=== PATIENT | female | born 1950 | race Caucasian/White ===

== ENCOUNTER → 2020-02-16 07:26 | Outpatient (CLI) | payer OTHER, SELFPAY ==
--- NOTE | ~2020-02-16 | MR_ITS ---
EXAMINATION: MR cervical spine wo con DATE: 02/16/2020 08:29 INDICATION: Neck pain. TECHNIQUE: Magnetic resonance imaging (MRI) of the cervical spine was performed without intravenous c ontrast. Sequences included sagittal T2-weighted FSE, sagittal STIR FSE, sagittal T1-weighted FSE, ax ial MERGE, and axial T2-weighted FSE. COMPARISON: Cervical spine MRI 02/12/2014 FINDINGS: Bone alignment is normal. Vertebral body heights and intervertebral disc heights are normal . The spinal cord signal intensity is normal. The following disc levels are specifically discussed: C2-C3: The disc does not extend beyond the endplate margin. There is no uncovertebral joint osteoarth ritis. There is mild bilateral facet joint osteoarthritis. There is no neural foraminal stenosis. The re is no central canal stenosis. C3-C4: The disc does not extend beyond the endplate margin. There is no uncovertebral joint osteoarth ritis. There is mild right facet joint osteoarthritis. There is no neural foraminal stenosis. There i s no central canal stenosis. C4-C5: The disc does not extend beyond the endplate margin. There is mild left uncovertebral joint os teoarthritis. There is mild left facet joint osteoarthritis. There is no neural foraminal stenosis. T here is no central canal stenosis. C5-C6: The disc does not extend beyond the endplate margin. There is mild left uncovertebral joint os teoarthritis. There is no facet joint osteoarthritis. There is no neural foraminal stenosis. There is no central canal stenosis. C6-C7: The disc does not extend beyond the endplate margin. There is mild left uncovertebral joint os teoarthritis. There is mild bilateral facet joint osteoarthritis. There is no neural foraminal stenos is. There is no central canal stenosis. C7-T1: The disc does not extend beyond the endplate margin. There is no uncovertebral joint osteoarth ritis. There is mild bilateral facet joint osteoarthritis. There is no neural foraminal stenosis. The re is no central canal stenosis. IMPRESSION: 1. Mild cervical spondylosis, stable from 02/12/2014. Reviewed, dictated and finalized at location A.
== END ==
PROVIDERS: Visit Provider Nurse Practitioner Family
DX: M47.892 Other spondylosis, cervical region (principal)
CPT/HCPCS: 72141

== ENCOUNTER → 2020-04-21 11:13 | Outpatient (CLI) | payer OTHER, SELFPAY ==
--- NOTE | ~2020-04-21 | MM_ITS ---
EXAMINATION: MM screening sal BI w [place] HISTORY: Screening TECHNIQUE: Craniocaudal and mediolateral oblique 3-D tomosynthesis images were obtained and synthetic 2-D images were generated. CAD analysis was submitted and interpreted. COMPARISON: 10/17/2010 BREAST PARENCHYMAL COMPOSITION: There are scattered areas of fibroglandular density. FINDINGS: There is no evidence of suspicious mass, calcification, or architectural distortion to sugg est malignancy in either breast. There has been no suspicious interval change. IMPRESSION: 1. No mammographic evidence of malignancy. 2. Recommend routine screening mammography in one year. BI-RADS Category 1: Negative Reviewed, dictated and finalized at location A.
== END ==
PROVIDERS: PCP Registered Nurse; Visit Provider Registered Nurse
DX: Z12.31 Encounter for screening mammogram for malignant neoplasm of breast (principal)
CPT/HCPCS: 77063; 77067

== ENCOUNTER 2020-12-17 11:21 | Outpatient (CLI) | payer OTHER, SELFPAY ==
--- NOTE | ~2020-12-17 | US_ITS ---
EXAMINATION: US venous doppler [facility] EXAM DATE: 12/17/2020 11:58 INDICATION: Left leg pain and swelling. TECHNIQUE: Multiple grayscale, color flow and Doppler images of the left lower extremity deep venous system were obtained and reviewed. There is no prior study for comparison. FINDINGS: The left common femoral, femoral and profunda veins demonstrate normal color flow, respirat ory variation, augmentation and compressibility. Compressibility, color flow confirmed within the le ft popliteal, posterior tibial, and greater saphenous veins. Peroneal vein not confidently seen. IMPRESSION: 1. No left lower extremity deep venous thrombosis identified. Reviewed, dictated and finalized at location B.
== END 2020-12-17 11:22 | disposition home or self-care (01) ==
PROVIDERS: PCP Registered Nurse; Visit Provider Registered Nurse
DX: M79.605 Pain in left leg (principal); M79.89 Other specified soft tissue disorders
CPT/HCPCS: 93971

== ENCOUNTER → 2021-06-06 11:48 | Outpatient (CLI) | payer OTHER, SELFPAY ==
--- NOTE | ~2021-06-06 | MM_ITS ---
EXAMINATION: MM screening sal BI w [place] HISTORY: Screening mammogram TECHNIQUE: Craniocaudal and mediolateral oblique 3-D tomosynthesis images were obtained and synthetic 2-D images were generated. CAD analysis was submitted and interpreted. COMPARISON: 04/21/2020, 10/17/2010 bilateral digital screening mammogram examinations BREAST PARENCHYMAL COMPOSITION: There are scattered areas of fibroglandular density. FINDINGS: There is no evidence of suspicious mass, calcification, or architectural distortion to sugg est malignancy in either breast. There has been no suspicious interval change. IMPRESSION: 1. No mammographic evidence of malignancy. 2. Recommend routine screening mammography in one year. BI-RADS Category 1: Negative Reviewed, dictated and finalized at location A.
== END ==
PROVIDERS: PCP Registered Nurse; Visit Provider Registered Nurse
DX: Z12.31 Encounter for screening mammogram for malignant neoplasm of breast (principal)
CPT/HCPCS: 77063; 77067

== ENCOUNTER → 2021-10-26 13:27 | Outpatient (CLI) | payer OTHER, SELFPAY ==
--- NOTE | ~2021-10-26 | CT_ITS ---
EXAMINATION: CT lung screening DATE: 10/26/2021 13:57 INDICATION: Personal history of nicotine dependence TECHNIQUE: Computed tomography (CT) of the chest was performed without intravenous contrast. The dose -length product was 61.03 mGy-cm. Automated exposure control and iterative reconstruction technique w ere employed. COMPARISON: No prior studies for comparison. FINDINGS: There is emphysema. No endobronchial lesions. No pneumothorax. There is lingular atelectasi s. There is a borderline size precarinal lymph node measuring 8 mm short axis, likely reactive. Heart size normal. No significant pleural or pericardial effusion. Upper abdomen is unremarkable. There is a healed right lower rib fracture. No acute osseous abnormality. There is a 3-4 mm stellate nodule r ight upper lobe, image 34. There is a 3 mm subsolid nodule right upper lobe, image 38. 2 mm nodule le ft apex, coronal image 53. No pneumothorax. Mild thoracic spondylosis. IMPRESSION: 1. . Lung-RADS category 2: Benign appearance or behavior. Continue annual screening with noncontrast low-dose chest CT in 12 months. Reviewed, dictated and finalized at location B. IMPRESSION: 1. . Lung-RADS category 2: Benign appearance or behavior. Continue annual scree ally with noncontrast low-dose chest CT in 12 months.
== END ==
PROVIDERS: Visit Provider Registered Nurse
DX: Z87.891 Personal history of nicotine dependence (principal)
CPT/HCPCS: 71271

== ENCOUNTER 2021-11-17 14:32 | Outpatient (CLI) | payer OTHER, SELFPAY ==
--- NOTE | 2021-11-17 18:03 | WPDPFTINT ---
PFT Procedure Performed PFT Procedure Performed Spirometry with Pre/Post Bronchodilator Plethysmography (Lung Vol) Diffusing Cap (DLCO) Flow Vol Loop PFT Interpretation This is a pulmonary function test with pre and post-bronchodilator spirometry, plethysmography and diffusing capacity. The test was performed and results interpreted in accordance with the 2019 and 2005 ATS/ERS Task Force guidelines respectively using the Global Lung Function Initiative-2012 reference equations. Patient demonstrated good effort and cooperation. Reproducibility criteria were met. The quality of the pre bronchodilator spirometry maneuver was Grade A and post bronchodilator spirometry maneuver was Grade A. Findings: Spirometry: There is decreased maximal expiratory airflow at all lung volumes with concave expiratory flow tracing. The contour the inspiratory flow tracing is normal. The pre bronchodilator FVC is 2.03 L, 75% predicted. The pre bronchodilator FEV1 is 0.71 L, 34% predicted. The pre bronchodilator FEV1: FVC ratio is 35%. The post bronchodilator FVC is 2.13 L, representing a 5% increase. The post bronchodilator FEV1 is 0.82 L, representing at a 110 mL increase which corresponds to a 16% increase. The post bronchodilator FEV1: FVC ratio is 38%. Plethysmography: The total lung capacity is 5.90 L, 125% predicted. Functional residual capacity is 4.49 L, 168% predicted. The residual volume is 3.63 L, 178% predicted. Diffusion capacity: The diffusing capacity on a adjusted for hemoglobin and carboxyhemoglobin is 8.7, 44% predicted. The diffusing capacity adjusted for alveolar volume is 2.70, 61% predicted. Impression: There is a very severe obstructive abnormality without a significant improvement after inhaling a single dose of albuterol as the absolute increase in FEV1 was less than 200 mL. The increase in residual volume is consistent with air trapping from an obstructive abnormality. Hyperinflation is present is demonstrated by the increase in functional residual capacity and total lung capacity and is consistent with an obstructive abnormality. The diffusing capacity unadjusted for hemoglobin and carboxyhemoglobin is moderately decreased and remains mildly decreased when adjusted for alveolar volume. There are no prior studies for comparison
== END 2021-11-17 14:33 | disposition home or self-care (01) ==
PROVIDERS: PCP Registered Nurse; Visit Provider Registered Nurse
DX: J44.9 Chronic obstructive pulmonary disease, unspecified (principal); J43.9 Emphysema, unspecified; R91.8 Other nonspecific abnormal finding of lung field; R94.2 Abnormal results of pulmonary function studies
CPT/HCPCS: 94060; 94726; 94729

== ENCOUNTER → 2022-01-11 10:30 | Outpatient (CLI) | payer OTHER, SELFPAY ==
--- NOTE | ~2022-01-11 | DEXA_ITS ---
Bone Density Report Name: ELEANOR GARCIA Age: 71 Sex: Female Ethnicity: White Date of : 1950 Indication: osteopenia; height loss; asthma or emphysema; hysterectomy; postmenopausal Referring Provider: Taisha, Ting Study: Bone densitometry was performed. Exam Date: January 11, 2022 Accession number: [id number] Bone Density: Region BMD T-score Z-score Classification AP Spine (L1-L4) 0.995 -0.5 1.6 Normal Femoral Neck (Left) 0.609 -2.2 -0.4 Osteopenia Total Hip (Left) 0.779 -1.3 0.1 Osteopenia Femoral Neck (Right) 0.651 -1.8 0.0 Osteopenia Total Hip (Right) 0.797 -1.2 0.3 Osteopenia Total Hip Mean 0.788 -1.3 0.2 Osteopenia World Health Organization criteria for BMD impression classify patients as: Normal (T-score at or above -1.0), Osteopenia (T-score between -1.0 and -2.5), or Osteoporosis (T-score at or below -2.5). 10-year Fracture Risk(1): Major Osteoporotic Fracture 15% Hip Fracture 3.6% Reported Risk Factors: [place] (), Neck BMD=0.609, BMI=26.4, alcohol use (1) FRAX(R) Version 3.08. Fracture probability calculated for an untreated patient. Fracture probability may be lower if the patient has received treatment. Previous Exams: Region Exam Age BMD T-score BMD Change BMD Change Date g/cm2 vs Baseline vs Previous AP Spine(L1-L4) 01/11/2022 71 0.995 -0.5 0.092* 0.063* 11/06/2017 66 0.931 -1.1 0.029* 0.029* 11/18/2008 57 0.903 -1.3 Total Hip(Left) 01/11/2022 71 0.779 -1.3 0.015 0.025 11/06/2017 66 0.755 -1.5 -0.009 -0.009 11/18/2008 57 0.764 -1.5 Total Hip(Right) 01/11/2022 71 0.797 -1.2 0.013 0.031* 11/06/2017 66 0.766 -1.4 -0.018 -0.018 11/18/2008 57 0.784 -1.3 *Denotes significance at 95% confidence level, LSC for AP Spine = 0.022 g/cm2, LSC for Total Hip = 0.027 g/cm2 Clinical Information Provided by Patient: Has 3 or more alcoholic drinks per day Has used the following medications: Vitamin D Has the following medical conditions: Asthma or Emphysema, Hysterectomy Patient maximum height was 63 Menopause Age: 28 No regular weight bearing exercise Drinks caffeinated beverages Onset of menses at age 14 Number of children 2 Impression: The patient has low bone mass, based on the Left Femoral Neck T-score. The patient has an estimated ten-year risk of hip fracture
== END ==
PROVIDERS: PCP Registered Nurse; Visit Provider Registered Nurse
DX: Z87.891 Personal history of nicotine dependence (principal); M85.852 Other specified disorders of bone density and structure, left thigh; M85.851 Other specified disorders of bone density and structure, right thigh
CPT/HCPCS: 77080

== ENCOUNTER → 2022-08-29 12:26 | Outpatient (CLI) | payer OTHER, SELFPAY ==
--- NOTE | ~2022-08-29 | MM_ITS ---
EXAMINATION: MM screening [facility] BI w [place] HISTORY: Screening mammogram TECHNIQUE: Craniocaudal and mediolateral oblique 3-D tomosynthesis images were obtained and synthetic 2-D images were generated. CAD analysis was submitted and interpreted. COMPARISON: 06/06/2021, 05/21/2020, 10/17/2010 BREAST PARENCHYMAL COMPOSITION: There are scattered areas of fibroglandular density. FINDINGS: No suspicious mass, calcification, or architectural distortion are identified in either jeannie ast to suggest malignancy. There has been no suspicious interval change. IMPRESSION: 1. No mammographic evidence of malignancy. 2. Recommend routine screening mammography in one year. BI-RADS Category 1: Negative Reviewed, dictated and finalized at location A. R ASSISTANT
== END ==
PROVIDERS: PCP Registered Nurse; Visit Provider Registered Nurse
DX: Z12.31 Encounter for screening mammogram for malignant neoplasm of breast (principal)
CPT/HCPCS: 77063; 77067

== ENCOUNTER → 2023-09-07 14:19 | Outpatient (CLI) | payer OTHER, SELFPAY ==
--- NOTE | ~2023-09-07 | CT_ITS ---
EXAMINATION:CT lung screening DATE: 09/07/2023 14:49 INDICATION: Persistent nicotine dependence. Smoker who quit 5 years ago with 50 pack year history. TECHNIQUE: Computed tomography (CT) of the chest was performed without intravenous contrast. Automate d exposure control and iterative reconstruction technique were employed. The dose-length product (DLP ) was 55.85 mGy-cm. COMPARISON: Chest CT 10/26/2021 FINDINGS: There is severe emphysema. There is a stable 5 mm nodule in right upper lobe. There is mild atelectasis bilaterally. There is a 2 mm nodule in left upper lobe. No pleural effusion. The heart s ize is normal. There are coronary artery calcifications. No pericardial effusion. Aortic atherosclero sis is noted. There is moderate thoracic spondylosis. IMPRESSION: 1. Lung-RADS category 2: Benign appearance or behavior. Continue annual screening with noncontrast lo w-dose chest CT in 12 months. Reviewed, dictated and finalized at location E. K MAKER IMPRESSION: 1. Lung-RADS category 2: Benign appearance or behavior. Continue annual screeni ng with noncontrast low-dose chest CT in 12 months.
== END ==
PROVIDERS: PCP Registered Nurse; Visit Provider Registered Nurse
DX: Z12.2 Encounter for screening for malignant neoplasm of respiratory organs (principal); Z87.891 Personal history of nicotine dependence
CPT/HCPCS: 71271

== ENCOUNTER 2023-10-24 12:47 | Outpatient (CLI) | payer OTHER, SELFPAY ==
--- NOTE | ~2023-10-24 | MM_ITS ---
EXAMINATION: MM screening sal BI w [place] HISTORY: Screening mammogram TECHNIQUE: Craniocaudal and mediolateral oblique 3-D tomosynthesis images were obtained and synthetic 2-D images were generated. CAD analysis was submitted and interpreted. COMPARISON: 08/29/2022, 06/06/2021 bilateral screening mammogram examinations BREAST PARENCHYMAL COMPOSITION: There are scattered areas of fibroglandular density. FINDINGS: There is no evidence of suspicious mass, calcification, or architectural distortion to sugg est malignancy in either breast. There has been no suspicious interval change. IMPRESSION: 1. No mammographic evidence of malignancy. 2. Recommend routine screening mammography in one year. BI-RADS Category 1: Negative Reviewed, dictated and finalized at location A.
== END 2023-10-24 12:48 ==
LOC: MICIMG 12:49
PROVIDERS: PCP Registered Nurse; Visit Provider Registered Nurse
DX: Z12.31 Encounter for screening mammogram for malignant neoplasm of breast (principal)
CPT/HCPCS: 77063; 77067

== ENCOUNTER 2023-12-20 11:46 | Outpatient (CLI) | payer OTHER, SELFPAY ==
--- NOTE | ~2023-12-20 | XR_ITS ---
Clinical Indication: Cough PA and lateral views of the chest: Comparison: 08/15/2013 Findings: The lungs are clear, without evidence of focal consolidation or pleural effusion. Cardiome diastinal silhouette is within normal limits. Bones and soft tissues are unremarkable. Impression: Normal chest. Reviewed, dictated and finalized at [facility]. Impression: Normal chest.
[2023-12-20 19:41] LABS: Appearance Urine Clear (Clear); Bilirubin Urine Negative (Negative); Blood Urine Negative (Negative); Color Urine Yellow (Yellow); Glucose Urine UA Negative (Negative); Ketones Urine Negative (Negative); Leukocyte Esterase Ur Negative LEU/UL (Negative); Nitrate Urine Negative (Negative); Protein Urine Negative (Negative); Specific Grav Ur 1.012 (1.001-1.035); Urobilinogen Urine 0.2 mg/dL (<2.0)
[2023-12-20 19:54] LABS: Add Urine Microscopic? NO
[2023-12-20 19:55] LABS: Alanine Aminotransferase 15 U/L (6-35); Albumin Level 4.9 g/dL (3.5-5.1); Alkaline Phosphatase 87 U/L (38-126); Anion Gap 12 mmol/L (4-12); Aspartate Amino Transferase 41 U/L (14-36); Bilirubin,Total 0.8 mg/dL (0.2-1.3); Blood Urea Nitrogen 26 mg/dL (7-17); CRP 0.6 mg/dL (<1.0); Calcium 10.4 mg/dL (8.4-10.2); Carbon Dioxide 21 mmol/L (22-30); Chloride 105 mmol/L (98-107); Cholesterol 238 mg/dL (0-200); Estimated Glomerular Filt Rate 55; Glucose 88 mg/dL (65-110); HDL Direct 94 mg/dL; Magnesium 1.8 mg/dL (1.6-2.3); Potassium 4.1 mmol/L (3.4-5.0); Sodium 138 mmol/L (137-145); Triglycerides 134 mg/dL (<150)
[2023-12-20 20:00] LABS: Hematocrit 45.5 % (37.0-47.0); Hemoglobin 14.7 g/dL (12.0-15.0); Mean Corpuscular HGB Conc 32.3 g/dl (32-36); Mean Corpuscular Hemoglobin 30.9 pg (26-34); Mean Corpuscular Volume 95.6 fl (80-100); Mean Platelet Volume 10.6 fl (7.4-10.4); Platelet Count Result 268 k/mm3 (150-375); Red Blood Count 4.76 M/mm3 (4.2-5.4); Red Cell Distribution Width 14.6 % (11.5-14.5); White Blood Count 8.3 K/mm3 (4.5-10.0)
[2023-12-20 20:04] LABS: LDL Cholesterol Direct 120 mg/dL
[2023-12-20 20:23] LABS: Thyroid Stimulating Hormone 0.999 uIU/mL (0.465-4.680)
== END 2023-12-20 11:47 | disposition home or self-care (01) ==
LOC: ANHBWCIMG 11:47 → ANHBWCLAB 11:51
PROVIDERS: PCP Nurse Practitioner Adult Health; Visit Provider Nurse Practitioner Adult Health
DX: R05.9 Cough, unspecified (principal); M81.0 Age-related osteoporosis without current pathological fracture; M79.10 Myalgia, unspecified site; R35.0 Frequency of micturition; R53.83 Other fatigue; I10 Essential (primary) hypertension
CPT/HCPCS: 36415; 71046; 80053; 80061; 81003; 82306; 82607; 82746; 83735; 84443; 85027; 86140

== ENCOUNTER 2024-05-01 09:46 | Outpatient (CLI) | payer OTHER, SELFPAY ==
--- NOTE | ~2024-05-01 | XR_ITS ---
EXAMINATION: XR abdomen/kub 1V DATE: 05/01/2024 09:55 INDICATION: Other fecal abnormalities. TECHNIQUE: A supine view of the abdomen was obtained. COMPARISON: None. FINDINGS: There are no dilated loops of bowel. There is a small volume of stool in the colon. IMPRESSION: 1. Normal bowel gas pattern. Reviewed, dictated and finalized at location A.
== END 2024-05-01 09:47 | disposition home or self-care (01) ==
LOC: ANHBWCIMG 09:47
PROVIDERS: PCP Nurse Practitioner Adult Health; Visit Provider Nurse Practitioner Adult Health
DX: R19.5 Other fecal abnormalities (principal)
CPT/HCPCS: 74018

== ENCOUNTER 2024-05-27 11:09 | Outpatient (CLI) | payer OTHER, SELFPAY ==
--- NOTE | ~2024-05-27 | CT_ITS ---
Non-contrast CT scan of the Abdomen and Pelvis Clinical indication: Other abnormalities Technique: 2.5 mm axial scans were obtained through the abdomen and pelvis without intravenous or or al contrast. Dose reduction technique was used on this scan by utilizing automated exposure control a nd iterative reconstruction technique. The dose-length product (DLP) was 305.62 mGy-cm. Findings: Images through the lung bases reveal no abnormalities. Left kidney unremarkable. Right kidney is severely, markedly atrophic. The liver, spleen, pancreas, gallbladder, and adrenals appear normal. There are extensive atheroscler otic calcifications of the aorta and iliac vessels. . There is no evidence of bowel obstruction. Possible mild diffuse large bowel wall thickening. Images through the pelvis were performed. There is no evidence of ascites or lymphadenopathy. Urinary bladder unremarkable. Status post hysterectomy. No pelvic mass. Impression: Suspected mild diffuse large bowel wall thickening. Correlate for mild infectious/inflammatory coliti s. Markedly atrophic right kidney. Reviewed, dictated and finalized at [facility]. Impression: Suspected mild diffuse large bowel wall thickening. Correlate for mild infectio us/inflammatory colitis. Markedly atrophic right kidney.
== END 2024-05-27 11:10 | disposition home or self-care (01) ==
LOC: MICIMG 11:10
PROVIDERS: PCP Nurse Practitioner Adult Health; Visit Provider Nurse Practitioner Adult Health
DX: R19.5 Other fecal abnormalities (principal); R10.9 Unspecified abdominal pain
CPT/HCPCS: 74176

== ENCOUNTER 2024-06-26 01:21 | Day surgery (SDC) | payer OTHER, SELFPAY ==
[2024-06-16 17:20] VITALS: BMI 23.8
[2024-06-26 11:02] VITALS: BP 145/66; PULSE 95; RESP 16; TEMP 36.1; O2SAT 99; BMI 23.6
[2024-06-26] MEDS: LACTATED RINGERS 1,000 ML 150 ML IV CONT (11:14)
--- NOTE | 2024-06-26 11:20 | P.PNAN_ITS ---
Anes - Initial Pre Proc Eval Procedure: Operation Date: 06/26/24 12:30 Proposed Procedures p Colonoscopy - Scott Arita MD Date/Time: 06/26/24 11:20 Surgeon: Scott Arita MD Pre Op Diagnosis: fecal abnormalities Patient Data Age: 73 Gender: F Height: 1.57 m Weight: 58.6 kg Last Vital Signs Temp 36.1 C L 06/26/24 11:02 Pulse 95 06/26/24 11:02 Resp 16 06/26/24 11:02 BP 145/66 H 06/26/24 11:02 Pulse Ox 99 06/26/24 11:02 O2 Del Method Room Air 06/26/24 11:02 Allergies Allergy/AdvReac Type Severity Reaction Status Date / Time amlodipine Allergy Unknown Swelling Verified 06/26/24 11:00 denosumab [From Prolia] Allergy Unknown Unknown Verified 06/26/24 11:00 fluticasone furoate Allergy Unknown Unknown Verified 06/26/24 11:00 [From Trelegy Ellipta] nitrofurantoin Allergy Unknown Unknown Verified 06/26/24 11:00 umeclidinium Allergy Unknown Unknown Verified 06/26/24 11:00 [From Trelegy Ellipta] vilanterol Allergy Unknown Unknown Verified 06/26/24 11:00 [From Trelegy Ellipta] NITROFURANTOIN MACROCRYSTAL Allergy Unknown Unknown Uncoded 06/26/24 11:00 Home Medications Medication Instructions Recorded Confirmed Type albuterol sulfate 2.5 mg/3 mL 2.5 mg (3 mL) inhalation Q4-6H PRN 12/20/23 06/26/24 Rx (0.083 %) solution for nebulization bronchospasm #90 mL albuterol sulfate 90 mcg/actuation 2 puff inhalation Q4H PRN 12/20/23 06/26/24 History aerosol inhaler (Ventolin HFA) shortness of breath or wheezing triamterene 37.5 1 tablet PO QAM 12/20/23 06/26/24 History mg-hydrochlorothiazide 25 mg tablet losartan 50 mg tablet 50 mg PO DAILY #90 tabs 01/17/24 06/26/24 Rx fluticasone 500 mcg-salmeterol 50 1 inh inhalation Q12H #60 ea 03/26/24 06/26/24 Rx mcg/dose blistr powdr for inhalation (Roroxheron Inhub) Patient hx anesthesia problems: none Family hx anesthesia problems: none Results Review: All pre-operative results and documents have been reviewed as part of the pre- operative evaluation. FORMERLY [facility], 1928–1983 Past Medical History Medical History Arthritis Asthma COPD (chronic obstructive pulmonary disease) Family History Family History Father Cancer Aneurysm Mother Cancer Sibling Cancer Aneurysm Social History Social History Smoking packs per day: 0.75 Smoking cigarettes per day: 15.0 Years smoked: 47 Smoking pack-years: 35.25 Smoking status: Former smoker Tobacco type: cigarettes Smoking end date: 12/11/17 Alcohol intake: current Drinks per week: 5 Alcohol use details: Rum or wine Substance use type: does not use Do You Feel Safe in your Home?: Yes Lack of Transportation: No Lack of Food: Never True Current Housing: I Have Housing Concerned About Future Housing: No Difficulty Paying Gas/Electric Bills: No Difficulty Paying for Meds: No Currently Unemployed: No Education: High School Diploma/GED Living arrangements: with family Gender identity (if verbalized by the patient): Female Spiritual care concerns: No Agree to blood products: Yes Anes - Eval Final PreProcedure Day of Procedure 06/26/24 11:20 Heart: regular rate and rhythm Airway: Mallampati scale class II Neurological: alert and oriented Last oral intake: >/= 8 hours ASA classification: III Emergent: no Anesthetic plan: proceed Anesthesia type and monitoring: general GIVS and standard monitoring Results Review: All pre-operative results and documents have been reviewed as part of the pre- operative evaluation. Informed Consent: The patient's anesthetic plan and its attendant risks and benefits were discussed with the patient/family/POA. Questions were solicited and answers provided to the satisfaction of the patient/family/POA.
--- NOTE | 2024-06-26 11:43 | PM.HPGS ---
History of Present Illness History of Present Illness Consent: Risks, benefits, and alternatives have been discussed and questions answered. Patient agrees to proceed with procedure. Chief complaint: fecal abnormalities Narrative: Radha Linares is a 73 year old female with change of bowel habits, last colonoscopy 10 years ago Review of Systems Review of Systems: All systems reviewed & are unremarkable except as noted in HPI and below PMFSH Past Medical History Medical History Arthritis Asthma COPD (chronic obstructive pulmonary disease) Family History Family History Father Cancer Aneurysm Mother Cancer Sibling Cancer Aneurysm Social History Social History Smoking packs per day: 0.75 Smoking cigarettes per day: 15.0 Years smoked: 47 Smoking pack-years: 35.25 Smoking status: Former smoker Tobacco type: cigarettes Smoking end date: 12/11/17 Alcohol intake: current Drinks per week: 5 Alcohol use details: Rum or wine Substance use type: does not use Do You Feel Safe in your Home?: Yes Lack of Transportation: No Lack of Food: Never True Current Housing: I Have Housing Concerned About Future Housing: No Difficulty Paying Gas/Electric Bills: No Difficulty Paying for Meds: No Currently Unemployed: No Education: High School Diploma/GED Living arrangements: with family Gender identity (if verbalized by the patient): Female Spiritual care concerns: No Agree to blood products: Yes Meds Home Medications and Allergies Home Medications Medication Instructions Recorded Confirmed Type albuterol sulfate 2.5 mg/3 mL 2.5 mg (3 mL) inhalation Q4-6H PRN 12/20/23 06/26/24 Rx (0.083 %) solution for nebulization bronchospasm #90 mL albuterol sulfate 90 mcg/actuation 2 puff inhalation Q4H PRN 12/20/23 06/26/24 History aerosol inhaler (Ventolin HFA) shortness of breath or wheezing triamterene 37.5 1 tablet PO QAM 12/20/23 06/26/24 History mg-hydrochlorothiazide 25 mg tablet losartan 50 mg tablet 50 mg PO DAILY #90 tabs 01/17/24 06/26/24 Rx fluticasone 500 mcg-salmeterol 50 1 inh inhalation Q12H #60 ea 03/26/24 06/26/24 Rx mcg/dose blistr powdr for inhalation (Wixela Inhub) Allergies Allergy/AdvReac Type Severity Reaction Status Date / Time amlodipine Allergy Unknown Swelling Verified 06/26/24 11:00 denosumab [From Prolia] Allergy Unknown Unknown Verified 06/26/24 11:00 fluticasone furoate Allergy Unknown Unknown Verified 06/26/24 11:00 [From Trelegy Ellipta] nitrofurantoin Allergy Unknown Unknown Verified 06/26/24 11:00 umeclidinium Allergy Unknown Unknown Verified 06/26/24 11:00 [From Trelegy Ellipta] vilanterol Allergy Unknown Unknown Verified 06/26/24 11:00 [From Trelegy Ellipta] NITROFURANTOIN MACROCRYSTAL Allergy Unknown Unknown Uncoded 06/26/24 11:00 Vital Signs Vital Signs - 24 hr 06/26/24 11:02 Temperature 97 F L Pulse Rate 95 Respiratory Rate 16 Blood Pressure 145/66 H Pulse Oximetry 99 Oxygen Delivery Room Air Exam Const: General: comfortable and no acute distress HENMT: Face/Nose/Sinus: Normal nares present Eyes: General: appearance normal, both eyes and all related structures Neck: Neck: no JVD Resp: Auscultation: clear to auscultation bilaterally Cardio: Rate: regular rate Rhythm: regular rhythm GI: Inspection: non-distended GI Palp: Yes Soft to palpation Skin: General skin exam: normal color Neuro: General: gait normal Speech: normal speech Extrem: General: normal to inspection Psych: Mental Status: mental status grossly normal Assessment and Plan Assessment and plan (1) Change in stool caliber: Code(s): R19.5 - Other fecal abnormalities Status: Acute Assessment and Plan: colonoscopy
[2024-06-26 12:00] VITALS: BP 109/44; PULSE 83; RESP 18; O2SAT 99
[2024-06-26 12:10] VITALS: BP 113/54; PULSE 86; RESP 18; O2SAT 100
[2024-06-26 12:30] VITALS: BP 112/68; PULSE 81; RESP 17; O2SAT 100
== END 2024-06-26 12:32 | disposition home or self-care (01) ==
PROVIDERS: PCP Nurse Practitioner Adult Health; Visit Provider Internal Medicine Gastroenterology
PROC: 0DJD8ZZ Inspection of Lower Intestinal Tract, Via Natural or Artificial Opening Endoscopic (ICD-10-PCS; CPT 45378; principal; 2024-06-26 12:30)
DX: D12.0 Benign neoplasm of cecum (principal); D12.3 Benign neoplasm of transverse colon; K64.8 Other hemorrhoids; J44.9 Chronic obstructive pulmonary disease, unspecified; Z79.51 Long term (current) use of inhaled steroids; Z87.891 Personal history of nicotine dependence; Z80.9 Family history of malignant neoplasm, unspecified
CPT/HCPCS: 45385; 88305; J2003; J2704; J7120

== ENCOUNTER 2024-09-08 10:00 | Outpatient (CLI) | payer OTHER, SELFPAY ==
--- NOTE | ~2024-09-08 | CT_ITS ---
CT Scan of the Chest without Contrast: Clinical Indication: Lung cancer screening, nicotine dependence Technique: Contiguous sections were acquired throughout the chest without intravenous contrast. Dose reduction technique was used on this scan by utilizing automated exposure control and iterative recon struction technique. The dose-length product (DLP) was 48.54 mGy-cm. COMPARISON: 09/07/2023 Findings: There is no evidence of any significant mediastinal, hilar or axillary lymphadenopathy. The mediastin al soft tissues appear unremarkable. There is no evidence of pleural or pericardial effusion. There is moderate to advanced emphysema. There is linear scarring or atelectasis at the lingula. No d iscrete pulmonary nodule evident. Images through the upper abdomen reveal no abnormalities. Impression: Lung RADS 1: Negative. 12 month follow-up screening CT advised. Moderate to advanced emphysema. Reviewed, dictated and finalized at [facility]. [facility] RE[facility]ATION THERAP[facility] Impression: Lung RADS 1: Negative. 12 month follow-up screening CT advised. Moderate to advanced emphysema.
== END 2024-09-08 10:01 | disposition home or self-care (01) ==
LOC: MICIMG 10:00
PROVIDERS: PCP Nurse Practitioner Adult Health; Visit Provider Nurse Practitioner Family
DX: Z12.2 Encounter for screening for malignant neoplasm of respiratory organs (principal); J43.9 Emphysema, unspecified; Z87.891 Personal history of nicotine dependence
CPT/HCPCS: 71271

== ENCOUNTER 2024-11-04 09:40 | Outpatient (CLI) | payer OTHER, SELFPAY ==
--- OUTSIDE RECORDS SUMMARY | 2024-11-04 10:57 | XMS_ITS | CONTINUITY OF CARE DOCUMENT ---
Author Name zaria, zaria Address Unknown Organization [facility] Address [address] [place] [address] Phone [phone] Care Team Providers Care Negative Stripper Name Role Phone Nicko DODGE, Chito Unavailable [phone] TIMUR BANDA Unavailable TIMUR BANDA Unavailable PROBLEMS Condition Status Date Provider Notes Abnormal electrocardiogram active Olga cohen Cardiology examination completed 7 - Chito Maharaj MD COPD active Chito Maharaj MD Claudication active Chito Maharaj MD Essential Hypertension-nml s tress nuc and echo active Chito Maharaj MD Hyperlipidemia active Chito Maharaj MD TOBACCO ABUSE QUIT active Chito Maharaj MD ENCOUNTERS Date Type Provider Location Encounter Diag nosis - In-person encounter Office Visit Chito Maharaj MD [facility] Cardiology examinationEssential Hypertension-nml stress nuc and echo - In-person encounter Office Visit Chito Maharaj MD [facility] COPDClaudicationEssential Hypertension-nml stress nuc and echoHyperlipidemiaTOBACCO ABUSE QUIT VITAL SIGNS Date Observation Value Provider Body Mass Index (Ratio) 24.87 kg/m2 Tenzin Maharaj MD blood pressure, diastolic 80 mm[Hg] Jonas Paris blood pressure, systolic 138 mm[Hg] Sweta Paris oxygen saturation, oximetry 97 % Jaylin Streeter respiratory rate E&M 16 /min Jaylin Paris pulse rate 68 /min Holabird Paris weight E&M 136 [lb_av] Jaylin Paris blood pressure, resting Yes Kaylah painter Streeter height E&M 62 [in_i] Jaylin Streeter Body Mass Index (Ratio) 23.96 kg/m2 Tenzin Maharaj MD blood pressure, cuff size regular Cy rosita Larsen blood pressure, diastolic 80 mm[Hg] Amilcar Larsen blood pressure, systolic 128 mm[Hg] Beth Larsen oxygen saturation, oximetry 98 % Julita Larsen respiratory rate E&M 16 /min Julita Larsen pulse rate 83 /min Julitafrances Gutiérrezbetzaida maria height E&M 62 [in_i] Julitafrances Gutiérrezbetzaida l weight E&M 131 [lb_av] Julita Cortes l ALLERGIES Allergy Name Onset Date Reaction Criticality Status MACROBID Low Criticality active HISTORY OF MEDICATION USE Medication Status Instructions Dates Provider Indications Com ments PROAIR HFA 108 (90 BASE) MCG/ACT INHALATION AEROSOL SOLUTION active TAke 2 puffs as needed Julita Larsen TRELEGY ELLIPTA 100-62.5-25 MCG/INH INHALATION AEROSOL POWDER BREATH ACTIVATED active TAke 1 puff as needed Julita Larsen SIMVASTATIN 20 MG ORAL TABLET active TAke 1 tab daily Julita Larsen TRIAMTERENE-HCTZ 37.5-25 MG ORAL CAPSULE active TAke 1 tab daily Julita Larsen SOCIAL HISTORY Date Observation Value Provider social history reviewed E&M revi ewed - no changes required Chito Maharaj MD number of grandchildren Chito Maharaj MD K yimi Streeter smoking, year quit 2018 Jaylin Hannah ngregina smoking history, total pack/day 1/2 PPD [facility] cigarette use yes Jaylin Paris smoking status Former smoker Jaylin Zapata am social history reviewed E&M revi ewed - no changes required Chito Maharaj MD social history E&M S moking History: Dunia yoder is a former smoker. Chito Maharaj MD smoking history, total pack/day 1/2 PPD Julita Chava smoking, year quit 2018 Julita garcia cigarette use yes Julita Wilson smoking status Former smoker Julita aparicio FAMILY HISTORY Family Member Condition Full Sister Family History of Di abetes: Full Sister Family History of Co ronary Artery Disease: Full Sister Family History of Di abetes: INSURANCE PROVIDERS Payer name Policy type / Coverage type [place] red republican ID [employer] [facility] Other [id number] ADVANCE DIRECTIVES Name Date DISCUSSED - NO DECISION MADE TREATMENT PLAN Date Name Performer Cardiology Chito Maharaj MD Cardiology Chito Maharaj MD Cardiology Chito Maharaj MD Cardiology Chito Maharaj MD Cardiology New Patient Chito roman MD Cardiology New Patient Chito roman MD Cardiology New Patient Chito roman MD Cardiology New Patient Chito roman MD Date Name Arterial Duplex Bi-L ower EX Stress Regadenoson Complete Echo HISTORY OF PROCEDURES Procedure Date Procedure Name Provider Procedure Notes S tatus Regadenoson, 4 units Chito Maharaj MD completed Cardiolite, 2 units Chito Maharaj MD completed SPECT Images Chito Maharaj MD complet ed Stress EKG Chito Maharaj MD completed EKG Chito Maharaj MD completed
[2024-11-04 19:45] LABS: Anion Gap 10 mmol/L (4-12); Blood Urea Nitrogen 17 mg/dL (7-17); Carbon Dioxide 27 mmol/L (22-30); Chloride 103 mmol/L (98-107); Estimated Glomerular Filt Rate 51; Glucose 91 mg/dL (65-110); Potassium 5.5 mmol/L (3.4-5.0); Sodium 140 mmol/L (137-145)
== END 2024-11-04 09:41 | disposition home or self-care (01) ==
PROVIDERS: PCP Nurse Practitioner Adult Health; Visit Provider Nurse Practitioner Adult Health
DX: E87.6 Hypokalemia (principal)
CPT/HCPCS: 36415; 80048

== ENCOUNTER 2024-11-07 11:04 | Inpatient (IN) | payer OTHER, SELFPAY ==
--- NOTE | ~2024-11-07 | CT_ITS ---
EXAMINATION: CTA abdomen pelvis DATE: 11/07/2024 13:44 INDICATION: Colitis. TECHNIQUE: Computed tomographic angiography (CTA) of the abdomen and pelvis was performed with 100 mL Omnipaque-350 intravenous contrast. Automated exposure control and iterative reconstruction techniqu e were employed. The dose-length product was 239.07 mGy-cm. Maximum intensity projection 3D-reconstru ctions of the aorta and other arteries were constructed by the technologist on a separate workstation . COMPARISON: CT abdomen and pelvis 05/27/2024 FINDINGS: The visualized portions of lung bases demonstrate emphysema and mild left-sided atelectasis . No pleural effusion. The heart size is normal. No pericardial effusion. There is a small sliding hi atal hernia. The liver, gallbladder, spleen, pancreas, adrenal glands, and left kidney are normal. Th ere is severe atrophy of right kidney. There is wall thickening throughout the colon, consistent with colitis. The appendix is not visualized. There are no pathologically enlarged lymph nodes. There is no free intraperitoneal fluid. There is mild stenosis of celiac axis and moderate stenosis of superio r mesenteric artery and left renal artery. There is mild stenosis of origin of inferior mesenteric ar solis. There is mild lumbar spondylosis. IMPRESSION: 1. Pancolitis. 2. Moderate stenosis of superior mesenteric artery. Reviewed, dictated and finalized at location A.
[2024-11-07 11:16] VITALS: BP 125/62; PULSE 110; RESP 20; TEMP 36.8; O2SAT 95
--- NOTE | 2024-11-07 11:19 | ECG_ITS ---
Test Date: 2024-11-07 11:23:43 Measurements Intervals [place] Rate: 110 P: 85 [place]: 131 QRS: 84 QRSD: 74 T: 90 QT: 291 QTc: 395 Interpretive Statements SINUS TACHYCARDIA MODERATE ST AND T-WAVE ABNORMALITY, CONSIDER INFEROLATERAL ISCHEMIA No previous ECG available for comparison Electronically Signed On 11-07-2024 13:17:27 CDT by Tessa Ochoa M.D.
--- OUTSIDE RECORDS SUMMARY | 2024-11-07 12:07 | XMS_ITS | Encounter Summary ---
Author Organization [facility] Address [facility] [facility] [place] [address] Care Team Providers Care Vegetable Buncher Name Role Phone Unavailable Primary Care Provider Unavailabl e Encounter Details Date Type Department Care Team (Late st Contact Info) Description 10/10/2024 Lab Requisition [facility] - DermPath Lab [address] [place] [id number] Fredy Rhodes MD [facility] DERMATOLOG[facility] [address] [place] [phone] Neoplasm of uncertain behavior of skin Social History Tobacco Use Types Packs/Day Years Used Date Smoking Tobacco: Every Day Cigarettes Smokeless Tobacco: Never Alcohol Use Standard Drinks/Week Comments Not Asked 0 (1 standard drink = 0.6 oz pur e alcohol) Sex and Gender Information Value Date Recorded Sex Assigned at Not on file Gender Identity Not on file Sexual Orientation Not on file documented as of this encounter Plan of Treatment Not on file documented as of this encounter Procedures Procedure Name Priority Date/Time Associated Diagnosis Comments DERMATOPATHOLOGY Routine 10/10/2024 12:0 0 AM PERFORMANCE IMPROVEMENT COORDINATOR Neoplasm of uncertain behavior of skin documented in this encounter Results * DERMATOPATHOLOGY (10/10/2024 12:00 AM PERFORMANCE IMPROVEMENT COORDINATOR) Case Report Dermatopathology Report Case: [id number] Authorizing Provider: Fredy Rhodes MD Collected: 10/10/2024 12:00 AM Ordering Location: [facility] - Received: 10/13/2024 04:17 PM DermPath Lab Pathologist: Antonella Ag MD Specimens: A) - Skin, right chin B) - Skin, left upper arm 5:11 PM [facility] DERMATOPATHOLOGY LABORATORY Final Diagnosis Specimen A. SKIN, right chin: BASAL CELL CARCINOMA, NODULAR TYPE (C44.319) Specimen B. 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 The specimen consists of a shave biopsy measuring 8x6x1 mm. Jar 0. Specimen B: Received is one formalin filled container labeled with the patient's name and designated left upper arm. The specimen consists of a shave biopsy measuring 6x4x2 mm. Jar 0. 5:11 PM [facility] DERMATOPATHOLOGY [facility]ORATORY Microscopic Description Specimen A. SKIN, right chin: Within the dermis there are aggregates of basaloid cells with a high nuclear to cytoplasmic ratio and peripheral palisading. Specimen B. SKIN, left upper arm: The epidermis shows parakeratosis, full thickness disorderly maturation of keratinocytes, mitoses at different levels, and dyskeratotic cells. There is a column of marked compact hyperkeratosis. 5:11 PM [facility] DERMATOPATHOLOGY LABORATORY Disclaimer An external and internal positive and negative controls are appropriate for the histochemical, immunohistochemical and immunofluorescence stain(s) in this case (if any), except where stated explicitly. The performance characteristics of the stain(s) cited in this report were developed and its performance characteristic determined by the Dermatopathology Laboratory at [facility], directed by Dr. Silvana Kramer. These tests need not be, and therefore are not, approved by the [place] Food and Drug Administration. The tests are used for clinical purposes. Billing Codes Specimen Charges Stain Charges 89431 95910 1 1 5:11 PM [facility] DERMATOPATHOLOGY LABORATORY Embedded Images 5:11 PM PERFORMANCE IMPROVEMENT COORDINATOR DERMATOPATHOLOGY LABORATORY Pathology/Cytology TISSUE SPECIMEN FROM SKIN / Unknown 10/10/2024 10/13/2024 4:17 PM PERFORMANCE IMPROVEMENT COORDINATOR Miscellaneous samples (specimen) TISSUE SPECIMEN FROM SKIN / Unknown 10/10/2024 10/13/2024 4:17 PM PERFORMANCE IMPROVEMENT COORDINATOR Fredy Rhodes MD LAB - PATHOLOGY/CYTO LOGY ORDERABLES DERMATOPATHOLOGY LABORATORY [facility] - Department of Dermatology [facility] [address] [place] [address], [address] [phone] documented in this encounter Visit Diagnoses Diagnosis Neoplasm of uncertain behavior of skin documented in this encounter
--- OUTSIDE RECORDS SUMMARY | 2024-11-07 12:07 | XMS_ITS | Encounter Summary ---
Author Organization [facility] Address [address] [place] [id number] Care Team Providers Care Purchasing Officer Name Role Phone Ting SumnerNP Primary Care Provider [phone] Daphne Ruiz RN Unavailable Molly Poe NP Primary Care Provider [phone] Encounter Details Date Type Department Care Team (Late st Contact Info) Description 02/07/2023 MyChart Message Enc [facility] - [facility] [address] [place], [place] [id number] [facility], [facility] Provider Air Quality Message Social History Tobacco Use Types Packs/Day Years Used Date Smoking Tobacco: Former Cigarettes 0.5 45 1 10/03/1972 - 08/02/2018 Passive Smoke Exposure: Past Smokeless Tobacco: Never Alcohol Use Standard Drinks/Week Comments Yes 0 (1 standard drink = 0.6 oz pur e alcohol) 4-5 per day PHQ-2 Answer Date Recorded PHQ-2 Score - If the patient scores above 3, please move on to questions 3-9 0 10/18/2021 Comments No Sex and Gender Information Value Date Recorded Sex Assigned at Not on file Legal Sex Female 9:01 AM CDT Gender Identity Female 10/06/2021 5:18 AM REPAIR SERVICE DISPATCHER Sexual Orientation Not on file COVID-19 Exposure Response Date Recorded In the last 10 days, have yo u been in contact with someone who was confirmed or suspected to have Coronavirus/COVID-19? No / Unsure 01/23/2023 3:14 PM CDT documented as of this encounter Plan of Treatment Upcoming Encounters Date Type Department Care Team (Late st Contact Info) Description 11/26/2024 11:30 AM CDT Office Visit [facility] [address] [place] [address] Danish Guzman MD [facility] [address] [place] [address] documented as of this encounter Visit Diagnoses Not on filedocumented in this encounter Additional Health Concerns Assessment Noted Time PHQ-9 Depression Total Score: 0 10/19/19 22 9:18 AM REPAIR SERVICE DISPATCHER documented as of this encounter Care Teams Purchasing Officer Relationship Specialty Start Date End Date Ting Sumner APNP [address] [place] [address] PCP - General NURSE PRACTITIONER 02/26/20 10/28/24 Molly Poe NP [address] [place] [address] PCP - General NURSE PRACTITIONER 10/29/24 Daphne Ruiz, RN [address] [place] [address] Song Plugger (Ambulatory) REGISTERED NURSE 10/28/24 10/28/24 documented as of this encounter
--- OUTSIDE RECORDS SUMMARY | 2024-11-07 12:07 | XMS_ITS | Clinical Summary ---
Author Organization [facility] Address [address] [facility] [place] [address] Care Team Providers Care Security Support Analyst Name Role Phone Unavailable Primary Care Provider Unavailabl e Source Comments [facility],non-owned Affiliates and Associated Physician Practices is amultiple site organization consisting of ambulatory clinics and hospital sitesin [place], [place], [place] and [place]. This disclosure is being madepursuant to the Care Everywhere program and may not contain all information available regarding this patient. Last updated 18.[facility] [employer] Allergies Active Allergy Reactions Criticality Noted Date Comments Tramadol 11/11/2012 Medications * Be aware that medications may not be up to date on this document. Alwaysverify current medications with the patient. Medication Sig Dispensed Refills Start Date End Date Status fluticasone-salmeterol (ADVAIR DISKUS) 250-50 MCG/DOSE inhaler Active DICLOFENAC SODIUM OP 2 times daily. Active triamterene-hydrochloroth iazide (MAXZIDE-25) 37.5-25 MG tablet Active simvastatin (ZOCOR) 20 MG tablet Active Active Problems Problem Noted Date Diagnosed Date Degeneration of cervical intervertebral disc 12/2012 HTN (hypertension) 11/11/2012 Hyperlipidemia 11/11/2012 Neck pain 11/11/2012 Encounters Date Type Department Care Team Description 10/10/2024 Lab Requisition [facility] - DermPath Lab [address] [facility] [place] [address] Fredy Rhodes MD Neoplasm of uncertain behavior of skin from Last 3 Months Social History Tobacco Use Types Packs/Day Years Used Date Smoking Tobacco: Every Day Cigarettes Smokeless Tobacco: Never Alcohol Use Standard Drinks/Week Comments Not Asked 0 (1 standard drink = 0.6 oz pur e alcohol) Sex and Gender Information Value Date Recorded Sex Assigned at Not on file Gender Identity Not on file Sexual Orientation Not on file Last Filed Vital Signs Vital Sign Reading Time Taken Comments Blood Pressure 125/78 11/11/2012 2:16 PM CDT Pulse 91 11/11/2012 2:16 PM CDT Temperature - - Respiratory Rate 18 11/11/2012 2:16 PM CDT Oxygen Saturation - - Inhaled Oxygen Concentration - - Weight 55.8 kg (123 lb) 11/11/2012 2:16 PM CDT Height 157.5 cm (5' 2 ) 11/11/2012 2:16 PM CDT Body Mass Index 22.5 11/11/2012 2:16 PM CDT Plan of Treatment Health Maintenance Due Date Last Done Comments BONE DENSITY TESTING 1950 COLOGUARD (AGES 45-75) - COL ON CA SCREENING 1952 COLON MONITORING 1952 COLONOSCOPY - COLON CA SCREENING 1952 CT COLONOGRAPHY - COLON CA SCREENING 1950 Colorectal Cancer Screening 1950 FIT - COLON CA SCREENING 1952 FLEX SIG - COLON CA SCREENING 1950 MAMMOGRAM 1950 MEDICARE AWV 12 MONTHS 1952 HEPATITIS C SCREENING 12/22/1970 DTAP/TDAP/TD VACCINES (1 - Tdap) 12/27/1971 PNEUMOCOCCAL VACCINE 50+ (1 of 2 - PCV) 12/27/1971 ZOSTER VACCINE (1 of 2) 2002 COVID-19 VACCINE ( - 2023-2 5 season) 2024 INFLUENZA VACCINE (#1) 2024 DEPRESSION SCREENING 08/13/2024 Respiratory Syncytial Virus (RSV) Vaccine Pt: or over 60 yrs (1 - 1-dose 75+ series) 12/27/2027 HEPATITIS B VACCINE Aged Out No longe r eligible based on patient's age to complete this topic HIB VACCINE Aged Out No longer eligi ble based on patient's age to complete this topic HPV VACCINE Aged Out No longer eligi ble based on patient's age to complete this topic MENINGOCOCCAL (Group B) VACC INE SHARED DECISION-MAKING Aged Out No longer eligibl e based on patient's age to complete this topic MENINGOCOCCAL GROUPS A/C/Y/W VACCINE Aged Out No longer eligible b ased on patient's age to complete this topic Procedures Procedure Name Priority Date/Time Associated Diagnosis Comments DERMATOPATHOLOGY Routine 10/10/2024 12:0 0 AM CEMENTING BULK MATERIAL OPERATOR Neoplasm of uncertain behavior of skin from Last 3 Months Results * DERMATOPATHOLOGY (10/10/2024 12:00 AM CEMENTING BULK MATERIAL OPERATOR) Case Report Dermatopathology Report Case: [id number] Authorizing Provider: Fredy Rhodes MD Collected: 10/10/2024 12:00 AM Ordering Location: [facility] - Received: 10/13/2024 04:17 PM DermPath Lab Pathologist: Antonella Ag MD Specimens: A) - Skin, right chin B) - Skin, left upper arm 5:11 PM [facility] DERMATOPATHOLOGY LABORATORY Final Diagnosis Specimen A. SKIN, right chin: BASAL CELL CARCINOMA, NODULAR TYPE (C44.319) Specimen B. 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 Jar 0. 5:11 PM [facility] DERMATOPATHOLOGY LABORATORY Microscopic Description Specimen A. SKIN, right chin: Within the dermis there are aggregates of basaloid cells with a high nuclear to cytoplasmic ratio and peripheral palisading. Specimen B. SKIN, left upper arm: The epidermis shows parakeratosis, full thickness disorderly maturation of keratinocytes, mitoses at different levels, and dyskeratotic cells. There is a column of marked compact hyperkeratosis. 5:11 PM CEMENTING BULK MATERIAL OPERATOR DERMATOPATHOLOGY LABORATORY Disclaimer An external and internal positive and negative controls are appropriate for the histochemical, immunohistochemical and immunofluorescence stain(s) in this case (if any), except where stated explicitly. The performance characteristics of the stain(s) cited in this report were developed and its performance characteristic determined by the Dermatopathology Laboratory at [facility], directed by Dr. Silvana Kramer. These tests need not be, and therefore are not, approved by the [place] Food and Drug Administration. The tests are used for clinical purposes. Billing Codes Specimen Charges Stain Charges 88382 11781 1 1 5 5:11 PM CEMENTING BULK MATERIAL OPERATOR DERMATOPATHOLOGY LABORATORY Embedded Images 5:11 PM CEMENTING BULK MATERIAL OPERATOR DERMATOPATHOLOGY LABORATORY Pathology/Cytology TISSUE SPECIMEN FROM SKIN / Unknown 10/10/2024 10/13/2024 4:17 PM CEMENTING BULK MATERIAL OPERATOR Miscellaneous samples (specimen) TISSUE SPECIMEN FROM SKIN / Unknown 10/10/2024 10/13/2024 4:17 PM CEMENTING BULK MATERIAL OPERATOR Fredy Rhodes MD LAB - PATHOLOGY/CYTO LOGY ORDERABLES DERMATOPATHOLOGY LABORATORY [facility] - Department of Dermatology [facility] Medicine [address] [place] [address], [address] [phone] from Last 3 Months
--- OUTSIDE RECORDS SUMMARY | 2024-11-07 12:07 | XMS_ITS | Referral Summary ---
Author Organization [facility] Address [address] [place] [address] Care Team Providers Care Demand Planning Analyst Name Role Phone Lui Molly KRISTINA Primary Care Provider [phone] Encounters Date Type Department Care Team Description 11/03/2024 [facility] Post Discharge Follow up phone call [address] [address] Kimber Butt RN 11/03/2024 [facility] Post Discharge Follow up phone call [address] [address] Ofe Chavira 10/25/2024 7:31 AM CDT - 10/28/2024 4:15 PM CDT Hospital Encounter [address] [address] Josue Cannon MD Nikolic, Jelena, MD Kheirkhahan, Nazanin, MD Fasick, Victoria Rose, DO Colitis (Primary Dx); Diarrhea of presumed infectious origin; Lower abdominal pain Discharge Disposition: Discharge to home or self care from Last 3 Months Allergies Active Allergy Reactions Criticality Noted Date Comments Nitrofurantoin Vomiting Low 10/25/2024 Medications losartan (Cozaar) 50 mg tablet Take 1 tablet (50 mg total) by mouth daily Active triamterene-hyd roCHLOROthiazid e 37.5-25 mg per tablet/capsule Take 1 tablet/capsu le by mouth daily Active [facility] fluticasone-april meterol, ADVAIR DISKUS, (/Pr eciSE,) 500-50 mcg/dose inhaler Inhale 1 puff 2 (two) times a day Rinse mouth with water after use. Do not swallow. Active potassium chloride ER (KLOR-CON) 20 mEq CR tablet Take 1 tablet (20 mEq total) by mouth 2 (two) times a day for 3 days 6 tablet 10/28/2024 Active metroNIDAZOLE (FLAGYL) 500 mg tabletIndicatio ns:Abdominal/Pe lvic Infection Take 1 tablet (500 mg total) by mouth 3 (three) times a day for 12 doses 12 tablet 10/28/2024 11/02/19 25 cefdinir (OMNICEF) 300 mg capsule Take 1 capsule (300 mg total) by mouth 2 (two) times a day for 6 days 12 capsule 10/28/2024 11/04/19 25 Active Problems Problem Noted Date Diagnosed Date Diarrhea of presumed infectious origin Lower abdominal pain 10/26/2024 Colitis 10/25/2024 Social History Tobacco Use Types Packs/Day Years Used Date Smoking Tobacco: Former Cigarettes Smokeless Tobacco: Never Tobacco Cessation:Counseling Given: Not Answered [facility] Talknoteities Answer Date Recorded In the past 12 months has [employer], gas, oil, or water [employer] threatened to shut off services in your home? No 10/27/2024 Social Connection and Isolation Panel [NHANES] A nswer Date Recorded In a typical week, how many times do you talk on the phone with family, friends, or neighbors? Never 10/27/2024 How often do you get together with friends or re latives? Never 10/27/2024 How often do you attend orthodoxy or confucianist serv ices? Never 10/27/2024 Do you belong to any clubs o r organizations such as orthodoxy groups, unions, fraternal or athletic groups, or school groups? No 10/27/2024 How often do you attend meet ings of the clubs or organizations you belong to? Never 10/27/2024 Are you , , di vorced, , never , or living with a partner? 10/27/2024 AUDIT-C Answer Date Recorded Q1: How often do you have a drink containing alc ohol? 2-3 times a week 10/25/2024 Q2: How many drinks containi ng alcohol do you have on a typical day when you are drinking? 3 or 4 10/25/2024 Q3: How often do you have si x or more drinks on one occasion? Weekly 10/25/2024 Overall Financial Resource Strain (CARDIA) Answe r Date Recorded How hard is it for you to pa y for the very basics like food, housing, medical care, and heating? Not very hard 10/27/2024 Hunger Vital Sign Answer Date Recorded Within the past 12 months, y ou worried that your food would run out before you got the money to buy more. Never true 10/28/19 25 Within the past 12 months, t he food you bought just didn't last and you didn't have money to get more. Never true 10/27/2024 PRAPARE - Transportation Answer Date Re corded In the past 12 months, has l ack of transportation kept you from medical appointments or from getting medications? No 10/11 In the past 12 months, has l ack of transportation kept you from meetings, work, or from getting things needed for daily living? No 10/27/2024 Housing Stability Vital Sign Answer Tony e Recorded In the last 12 months, was t here a time when you were not able to pay the mortgage or rent on time? No 10/27/2024 In the past 12 months, how m any times have you moved where you were living? 0 10/27/2024 At any time in the past 12 m [facility], were you homeless or living in a half-way (including now)? No 10/27/2024 Personal Safety Answer Date Recorded Have you ever been in or are you currently in a harmful physical or emotional relationship or is someone making you feel afraid or unsafe? Denies 10/25/2024 Comments No Sex and Gender Information Value Date Recorded Sex Assigned at Not on file Legal Sex Female 3:26 PM [employer] Gender Identity Not on file Sexual Orientation Not on file Last Filed Vital Signs Vital Sign Reading Time Taken Comments Blood Pressure 146/73 10/28/2024 11:46 AM CDT Pulse 86 10/28/2024 6:00 AM CDT Temperature 36.7 C (98 F) 10/28/2024 11:46 AM CDT Respiratory Rate 18 10/28/2024 11:46 AM CDT Oxygen Saturation 100% 10/28/2024 11:46 AM CDT Inhaled Oxygen Concentration - - Weight 48 kg (105 lb 13.1 oz) 10/25/2024 2:30 PM CDT Height 157.5 cm (5' 2 ) 10/25/2024 2:30 PM CDT Body Mass Index 19.35 10/25/2024 2:30 PM CDT Plan of Treatment Not on file Procedures Procedure Name Priority Date/Time Associated Diagnosis Comments HEMOGLOBIN AND HEMATOCRIT Timed 10/28/2024 12:45 PM CDT EGFR Routine 10/28/2024 5:27 AM CDT DIFFERENTIAL AUTO Routine 10/28/2024 5:2 7 AM CDT CBC WITH AUTO DIFFERENTIAL Routine 10/28/2024 5:27 AM CDT BASIC METABOLIC PANEL Routine 10/28/2024 5:27 AM CDT EGFR Routine 10/27/2024 11:06 AM CDT DIFFERENTIAL AUTO Routine 10/27/2024 11: 06 AM CDT CBC WITH AUTO DIFFERENTIAL Routine 10/27/2024 11:06 AM CDT BASIC METABOLIC PANEL Routine 10/27/2024 11:06 AM CDT CALCIUM,IONIZED, WHOLE BLOOD Routine 10/27/2024 11:06 AM CDT POTASSIUM LEVEL Routine 10/26/2024 2:01 PM CDT CALCIUM,IONIZED, WHOLE BLOOD Routine 10/26/2024 9:37 AM CDT MAGNESIUM Add-On 10/26/2024 8:31 AM CDT EGFR Routine 10/26/2024 5:08 AM CDT DIFFERENTIAL AUTO Routine 10/26/2024 5:0 8 AM CDT CBC WITH AUTO DIFFERENTIAL Routine 10/26/2024 5:08 AM CDT BASIC METABOLIC PANEL Routine 10/26/2024 5:08 AM CDT SEPSIS LACTATE WITH REFLEX STAT 10/25/2024 12:00 PM CDT BLOOD CULTURE STAT 10/25/2024 10:42 AM CDT BLOOD CULTURE STAT 10/25/2024 10:[address] ABDOMEN PELVIS W CONTRAST ED 10/25/2024 10:00 AM CDT URINALYSIS AND REFLEX TO MICROSCOPIC AND CULTURE STAT 10/25/2024 9:03 AM CDT EGFR STAT 10/25/2024 8:07 AM CDT DIFFERENTIAL AUTO STAT 10/25/2024 8:0 7 AM CDT LIPASE STAT 10/25/2024 8:07 AM CDT COMPREHENSIVE METABOLIC PANEL STAT 10/25/2024 8:07 AM CDT CBC WITH AUTO DIFFERENTIAL STAT 10/25/2024 8:07 AM CDT STOOL CULTURE STAT 10/25/2024 8:07 AM CDT C. DIFFICILE TESTING STAT 10/25/2024 8:07 AM CDT from Last 3 Months Results * Hemoglobin and hematocrit (10/28/2024 12:45 PM CDT) Hgb 12.1 11.9 - 15.5 g/dL Hct 36.2 35.6 - 45.5 % [facility] Blood 10/28/2024 12:4 5 PM CDT 10/28/2024 12:54 PM CDT Maribeth Arrington DO LAB BLOOD ORDERABLES Fin al Result Performing Organization Address City/[facility]/ZIP Co de Phone Number [facility]) 1 [facility] Department [place] [address] * eGFR (10/28/2024 5:27 AM CDT) eGFR 84 >=60 mL/min/1. 73 m2 Comment: Interpretive Data Reference Interval Normal >/= 90 mL/min/1.73m2 Mildly decreased* 60 - 89 mL/min/1.73m2 Mildly to moderately decreased 45 - 59 mL/min/1.73m2 Moderately to severely decreased 30 - 44 mL/min/1.73m2 Severely decreased 15 - 29 mL/min/1.73m2 Kidney Failure < 15 mL/min/1.73m2 *Relative to young adult level Estimated glomerular filtration rate is determined by the 2020 CKD-EPI equation recommended by the National Kidney Foundation (A Unifying Approach to GFR Estimation: Recommendations of the NKF-ASK Task Force on Reassessing the Inclusion of Race in Diagnosing Kidney Disease, JASN 2020). The CKD-EPI equation should not be used for patients with unstable renal function and has not been validated in children and those over 70. Current interpretive data was last reviewed 2021. Blood 10/28/2024 5:27 AM CDT 10/28/2024 5:49 AM CDT us Mari Alvarez MD LAB BLOOD ORDERABLES Final Res ult [facility]) 1 [facility] Department [place] [address] * Differential, auto (10/28/2024 5:27 AM CDT) Neutrophil abs 2.8 1.5 - 6.5 K/cumm Imm gran abs 0.0 0.0 - 0.1 K/cumm [facility] ([place]) Lymphocyte abs 1.8 0.8 - 3.3 K/cumm [facility] ([place]) Monocyte abs 0.6 0.2 - 0.8 K/cumm [facility] ([place]) Eosinophil abs 0.2 0.0 - 0.5 K/cumm [facility] ([place]) Basophil abs 0.0 0.0 - 0.1 K/cumm [facility] ([place]) Neutrophil pct 52.6 % [facility] ([place]) Comment: Interpretive Data Percent cell count reference ranges are not reported, since discordance with absolute values may lead to misinterpretation of CBC data. Current Interpretive Data was last revised on 2017. Imm gran pct 0.4 % [facility] ([place]) Comment: Interpretive Data Percent cell count reference ranges are not reported, since discordance with absolute values may lead to misinterpretation of CBC data. Current Interpretive Data was last revised on 2017. Lymphocyte pct 32.7 % [facility] ([place]) Comment: Interpretive Data Percent cell count reference ranges are not reported, since discordance with absolute values may lead to misinterpretation of CBC data. Current Interpretive Data was last revised on 2017. Monocyte pct 10.2 % [facility] ([place]) Comment: Interpretive Data Percent cell count reference ranges are not reported, since discordance with absolute values may lead to misinterpretation of CBC data. Current Interpretive Data was last revised on 2017. Eosinophil pct 3.7 % [facility] ([facility]) Comment: Interpretive Data Percent cell count reference ranges are not reported, since discordance with absolute values may lead to misinterpretation of CBC data. Current Interpretive Data was last revised on 2017. Basophil pct 0.4 % [facility] ([place]) Comment: Interpretive Data Percent cell count reference ranges are not reported, since discordance with absolute values may lead to misinterpretation of CBC data. Current Interpretive Data was last revised on 2017. Blood 10/28/2024 5:27 AM CDT 10/28/2024 5:49 AM CDT us Mari Alvarez MD LAB BLOOD ORDERABLES Final Res ult [facility] ([place]) 1 [facility] Department [place] [address] * (ABNORMAL) CBC with auto differential (10/28/2024 5:27 AM CDT) WBC 5.4 3.8 - 9.9 K/cumm Hgb 10.9(L) 11.9 - 15.5 g/dL [facility] ([place]) Hct 32.2(L) 35.6 - 45.5 % [facility] ([place]) Plt 271 150 - 400 K/cumm [facility] ([place]) MPV 9.2 9.1 - 12.3 fL [facility] ([place]) RBC 3.57(L) 3.90 - 5.20 M/cumm [facility] ([place]) MCV 90.2 81.3 - 96.4 fL [facility] ([place]) MCH 30.5 27.1 - 33.3 pg [facility] ([place]) MCHC 33.9 32.3 - 35.7 g/dL [facility] ([place]) RDW CV 12.5 11.1 - 14.9 % [facility]) RDW SD 41.1 35.7 - 48.1 fL [facility] ([place]) NRBC abs 0.00 0.00 - 0.01 K/cumm [facility] ([place]) Blood 10/28/2024 5:27 AM CDT 10/28/2024 5:49 AM CDT us Mari Alvarez MD LAB BLOOD ORDERABLES Final Res ult [facility] ([place]) 1 [facility] Department [place] [address] * (ABNORMAL) Basic metabolic panel (10/28/2024 5:27 AM CDT) Sodium 140 135 - 145 mmol/L Potassium, pl 3.1(L) 3.3 - 4.9 mmol/L [facility] ([place]) Chloride 102 97 - 110 mmol/L [facility] ([facility]) CO2 25 22 - 32 mmol/L [facility] ([place]) Anion gap 13 2 - 15 mmol/L [facility] ([place]) BUN 6 6 - 25 mg/dL [facility] ([place]) Creatinine 0.76 0.60 - 1.10 mg/dL [facility] ([place]) Glucose 89 70 - 199 mg/dL [facility] ([place]) Comment: Interpretive Data Fasting glucose >/= 126 mg/dl is diagnostic for diabetes. Fasting is defined as no caloric intake for at least 8 hours. Fasting glucose between 100 mg/dl to 125 mg/dl is diagnostic of prediabetes. In a patient with classic symptoms of hyperglycemia or hyperglycemic crisis, a random glucose >/= 200 mg/dl is diagnostic for diabetes. In the absence of unequivocal hyperglycemia, results should be confirmed by repeat testing. The classification and Diagnosis of Diabetes Diabetes Care 2021; 46: S19-S40. Current interpretive data was last revised 2022. Calcium 8.0(L) 8.5 - 10.3 mg/dL [facility] Blood 10/28/2024 5:27 AM CDT 10/28/2024 5:49 AM CDT us Mari Alvarez MD LAB BLOOD ORDERABLES Final Res ult [facility] 1 [facility] [place] [address] * (ABNORMAL) Calcium, ionized, whole blood (10/27/2024 11:06 AM CDT) Ca, ionized, bld 4.21(L) 4.50 - 5.10 mg/dL Blood 10/27/2024 11:0 6 AM CDT 10/27/2024 11:12 AM CDT us Yvette Jacob MD LAB BLOOD ORDERABLES Socorro l Result [facility] 1 [facility] [place] [address] * eGFR (10/27/2024 11:06 AM CDT) eGFR 78 >=60 mL/min/1. 73 m2 Comment: Interpretive Data Reference Interval Normal >/= 90 mL/min/1.73m2 Mildly decreased* 60 - 89 mL/min/1.73m2 Mildly to moderately decreased 45 - 59 mL/min/1.73m2 Moderately to severely decreased 30 - 44 mL/min/1.73m2 Severely decreased 15 - 29 mL/min/1.73m2 Kidney Failure < 15 mL/min/1.73m2 *Relative to young adult level Estimated glomerular filtration rate is determined by the 2020 CKD-EPI equation recommended by the National Kidney Foundation (A Unifying Approach to GFR Estimation: Recommendations of the NKF-ASK Task Force on Reassessing the Inclusion of Race in Diagnosing Kidney Disease, JASN 2020). The CKD-EPI equation should not be used for patients with unstable renal function and has not been validated in children and those over 70. Current interpretive data was last reviewed 2021. Blood 10/27/2024 11:0 6 AM CDT 10/27/2024 11:12 AM CDT us Mari Alvarez MD LAB BLOOD ORDERABLES Final Res ult [facility] 1 [facility] Department [place] [address] * Differential, auto (10/27/2024 11:06 AM CDT) Neutrophil abs 5.4 1.5 - 6.5 K/cumm Imm gran abs 0.0 0.0 - 0.1 K/cumm [facility] ([place]) Lymphocyte abs 1.7 0.8 - 3.3 K/cumm [facility] ([place]) Monocyte abs 0.5 0.2 - 0.8 K/cumm [facility] ([place]) Eosinophil abs 0.1 0.0 - 0.5 K/cumm [facility] ([place]) Basophil abs 0.0 0.0 - 0.1 K/cumm [facility] ([place]) Neutrophil pct 69.3 % [facility] ([place]) Comment: Interpretive Data Percent cell count reference ranges are not reported, since discordance with absolute values may lead to misinterpretation of CBC data. Current Interpretive Data was last revised on 2017. Imm gran pct 0.3 % [facility] ([place]) Comment: Interpretive Data Percent cell count reference ranges are not reported, since discordance with absolute values may lead to misinterpretation of CBC data. Current Interpretive Data was last revised on 2017. Lymphocyte pct 22.2 % [facility] ([place]) Comment: Interpretive Data Percent cell count reference ranges are not reported, since discordance with absolute values may lead to misinterpretation of CBC data. Current Interpretive Data was last revised on 2017. Monocyte pct 6.6 % [facility] ([place]) Comment: Interpretive Data Percent cell count reference ranges are not reported, since discordance with absolute values may lead to misinterpretation of CBC data. Current Interpretive Data was last revised on 2017. Eosinophil pct 1.3 % [facility]) Comment: Interpretive Data Percent cell count reference ranges are not reported, since discordance with absolute values may lead to misinterpretation of CBC data. Current Interpretive Data was last revised on 2017. Basophil pct 0.3 % [facility] ([place]) Comment: Interpretive Data Percent cell count reference ranges are not reported, since discordance with absolute values may lead to misinterpretation of CBC data. Current Interpretive Data was last revised on 2017. Blood 10/27/2024 11:0 6 AM CDT 10/27/2024 11:12 AM CDT us Mari Alvarez MD LAB BLOOD ORDERABLES Final Res ult [facility] ([place]) 1 [facility] Department [place] [address] * CBC with auto differential (10/27/2024 11:06 AM CDT) WBC 7.7 3.8 - 9.9 K/cumm Hgb 12.7 11.9 - 15.5 g/dL [facility] ([place]) Hct 37.5 35.6 - 45.5 % [facility] ([place]) Plt 318 150 - 400 K/cumm [facility] ([place]) MPV 9.2 9.1 - 12.3 fL [facility] ([place]) RBC 4.13 3.90 - 5.20 M/cumm [facility] ([place]) MCV 90.8 81.3 - 96.4 fL [facility] ([place]) MCH 30.8 27.1 - 33.3 pg [facility] ([place]) MCHC 33.9 32.3 - 35.7 g/dL [facility] ([place]) RDW CV 12.5 11.1 - 14.9 % [facility]) RDW SD 41.4 35.7 - 48.1 fL [facility] ([place]) NRBC abs 0.00 0.00 - 0.01 K/cumm [facility] Blood 10/27/2024 11:0 6 AM CDT 10/27/2024 11:12 AM CDT us Mari Alvarez MD LAB BLOOD ORDERABLES Final Res ult [facility] 1 [facility] Department [place] [address] * (ABNORMAL) Basic metabolic panel (10/27/2024 11:06 AM CDT) Sodium 139 135 - 145 mmol/L Potassium, pl 3.3 3.3 - 4.9 mmol/L [facility] Chloride 99 97 - 110 mmol/L [facility] CO2 27 22 - 32 mmol/L [facility]) Anion gap 14 2 - 15 mmol/L [facility] ([facility]) BUN 8 6 - 25 mg/dL [facility] ([facility]) Creatinine 0.81 0.60 - 1.10 mg/dL [facility] ([facility]) Glucose 98 70 - 199 mg/dL [facility] Comment: Interpretive Data Fasting glucose >/= 126 mg/dl is diagnostic for diabetes. Fasting is defined as no caloric intake for at least 8 hours. Fasting glucose between 100 mg/dl to 125 mg/dl is diagnostic of prediabetes. In a patient with classic symptoms of hyperglycemia or hyperglycemic crisis, a random glucose >/= 200 mg/dl is diagnostic for diabetes. In the absence of unequivocal hyperglycemia, results should be confirmed by repeat testing. The classification and Diagnosis of Diabetes Diabetes Care 2021; 46: S19-S40. Current interpretive data was last revised 2022. Calcium 8.4(L) 8.5 - 10.3 mg/dL [facility] Blood 10/27/2024 11:0 6 AM CDT 10/27/2024 11:12 AM CDT Mari Alvarez MD LAB BLOOD ORDERABLES Final Res ult Performing Organization Address City/[facility]/ZIP Co de Phone Number [facility] 1 [facility] [place] [address] * Potassium (10/26/2024 2:01 PM CDT) Potassium, pl 3.7 3.3 - 4.9 mmol/L Blood 10/26/2024 2:01 PM CDT 10/26/2024 2:13 PM CDT Yvette Jacob MD LAB BLOOD ORDERABLES Socorro l Result Performing Organization Address City/[facility]/ZIP Co de Phone Number [facility] 1 [facility] [place] [address] * Calcium, ionized, whole blood (10/26/2024 9:37 AM CDT) Ca, ionized, bld 4.59 4.50 - 5.10 mg/dL Blood 10/26/2024 9:37 AM CDT 10/26/2024 9:40 AM CDT Yvette Jacob MD LAB BLOOD ORDERABLES Socorro l Result Performing Organization Address City/[facility]/ZIP Co de Phone Number [facility] 1 [facility] [place] [address] * Magnesium (10/26/2024 8:31 AM CDT) Magnesium 1.6 1.4 - 2.5 mg/dL Blood 10/26/2024 8:31 AM CDT 10/26/2024 8:43 AM CDT us Yvette Jacob MD LAB BLOOD ORDERABLES Socorro l Result Performing Organization Address [facility] Co de Phone Number [facility] 1 [facility] [place] [address] * eGFR (10/26/2024 5:08 AM CDT) eGFR 63 >=60 mL/min/1. 73 m2 Comment: Interpretive Data Reference Interval Normal >/= 90 mL/min/1.73m2 Mildly decreased* 60 - 89 mL/min/1.73m2 Mildly to moderately decreased 45 - 59 mL/min/1.73m2 Moderately to severely decreased 30 - 44 mL/min/1.73m2 Severely decreased 15 - 29 mL/min/1.73m2 Kidney Failure < 15 mL/min/1.73m2 *Relative to young adult level Estimated glomerular filtration rate is determined by the 2020 CKD-EPI equation recommended by the National Kidney Foundation (A Unifying Approach to GFR Estimation: Recommendations of the NKF-ASK Task Force on Reassessing the Inclusion of Race in Diagnosing Kidney Disease, JASN 2020). The CKD-EPI equation should not be used for patients with unstable renal function and has not been validated in children and those over 70. Current interpretive data was last reviewed 2021. Blood 10/26/2024 5:08 AM CDT 10/26/2024 6:03 AM CDT us Mari Alvarez MD LAB BLOOD ORDERABLES Final Res ult [facility] ([place]) 1 [facility] [place] [address] * (ABNORMAL) Differential, auto (10/26/2024 5:08 AM CDT) Neutrophil abs 6.6(H) 1.5 - 6.5 K/cumm Imm gran abs 0.0 0.0 - 0.1 K/cumm [facility] ([place]) Lymphocyte abs 1.6 0.8 - 3.3 K/cumm [facility] ([place]) Monocyte abs 0.8 0.2 - 0.8 K/cumm [facility] ([place]) Eosinophil abs 0.0 0.0 - 0.5 K/cumm [facility] ([place]) Basophil abs 0.0 0.0 - 0.1 K/cumm [facility] ([place]) Neutrophil pct 72.7 % [facility] ([facility]) Comment: Interpretive Data Percent cell count reference ranges are not reported, since discordance with absolute values may lead to misinterpretation of CBC data. Current Interpretive Data was last revised on 2017. Imm gran pct 0.3 % [facility] ([place]) Comment: Interpretive Data Percent cell count reference ranges are not reported, since discordance with absolute values may lead to misinterpretation of CBC data. Current Interpretive Data was last revised on 2017. Lymphocyte pct 17.2 % [facility] ([place]) Comment: Interpretive Data Percent cell count reference ranges are not reported, since discordance with absolute values may lead to misinterpretation of CBC data. Current Interpretive Data was last revised on 2017. Monocyte pct 9.1 % [facility] ([place]) Comment: Interpretive Data Percent cell count reference ranges are not reported, since discordance with absolute values may lead to misinterpretation of CBC data. Current Interpretive Data was last revised on 2017. Eosinophil pct 0.4 % [facility] ([place]) Comment: Interpretive Data Percent cell count reference ranges are not reported, since discordance with absolute values may lead to misinterpretation of CBC data. Current Interpretive Data was last revised on 2017. Basophil pct 0.3 % [facility] ([place]) Comment: Interpretive Data Percent cell count reference ranges are not reported, since discordance with absolute values may lead to misinterpretation of CBC data. Current Interpretive Data was last revised on 2017. Blood 10/26/2024 5:08 AM CDT 10/26/2024 6:03 AM CDT Mari Alvarez MD LAB BLOOD ORDERABLES Final Res ult [facility] 1 [facility] [place] [address] * (ABNORMAL) CBC with auto differential (10/26/2024 5:08 AM CDT) WBC 9.0 3.8 - 9.9 K/cumm Hgb 11.4(L) 11.9 - 15.5 g/dL [facility] ([place]) Hct 34.6(L) 35.6 - 45.5 % [facility] ([place]) Plt 266 150 - 400 K/cumm [facility] ([place]) MPV 9.7 9.1 - 12.3 fL [facility]) RBC 3.74(L) 3.90 - 5.20 M/cumm [facility] ([place]) MCV 92.5 81.3 - 96.4 fL [facility]) MCH 30.5 27.1 - 33.3 pg [facility]) MCHC 32.9 32.3 - 35.7 g/dL [facility]) RDW CV 12.5 11.1 - 14.9 % [facility]) RDW SD 42.7 35.7 - 48.1 fL [facility]) NRBC abs 0.00 0.00 - 0.01 K/cumm [facility] ([place]) Blood 10/26/2024 5:08 AM CDT 10/26/2024 6:03 AM CDT Mari Alvarez MD LAB BLOOD ORDERABLES Final Res ult [facility] ([place]) 1 [facility] [place] [address] * (ABNORMAL) Basic metabolic panel (10/26/2024 5:08 AM CDT) Sodium 136 135 - 145 mmol/L Comment:breanna alejandro Potassium, pl 2.8(C) 3.3 - 4.9 mmol/L [facility] ([place]) Comment:Critical Result call ed by [email or web address] at 2024-10-26 07:08:16. Result Read Back by breanna alejandro Chloride 102 97 - 110 mmol/L [facility] ([place]) Comment:breanna alejandro CO2 15(L) 22 - 32 mmol/L [facility] ([place]) Comment:breanna alejandro Anion gap 20(H) 2 - 15 mmol/L [facility] ([place]) Comment:breanna alejandro BUN 18 6 - 25 mg/dL [facility] [facility] Comment:breanna alejandro Creatinine 0.96 0.60 - 1.10 mg/dL [facility] ([facility] Comment:breanna alejandro Glucose 61(L) 70 - 199 mg/dL [facility] ([facility]) Comment: breanna alejandro Interpretive Data Fasting glucose >/= 126 mg/dl is diagnostic for diabetes. Fasting is defined as no caloric intake for at least 8 hours. Fasting glucose between 100 mg/dl to 125 mg/dl is diagnostic of prediabetes. In a patient with classic symptoms of hyperglycemia or hyperglycemic crisis, a random glucose >/= 200 mg/dl is diagnostic for diabetes. In the absence of unequivocal hyperglycemia, results should be confirmed by repeat testing. The classification and Diagnosis of Diabetes Diabetes Care 2021; 46: S19-S40. Current interpretive data was last revised 2022. Calcium 8.0(L) 8.5 - 10.3 mg/dL [facility] ([facility]) Comment:breanna alejandro Blood 10/26/2024 5:08 AM CDT 10/26/2024 6:03 AM CDT us Mari Alvarez MD LAB BLOOD ORDERABLES Final Res ult [facility]) 1 [facility] Department [place] [address] * Sepsis Lactate w/ Reflex (10/25/2024 12:00 PM CDT) Sepsis Lactate 1.3 0.7 - 2.0 mmol/L Blood 10/25/2024 12:0 0 PM CDT 10/25/2024 12:03 PM CDT us Josue Cannon MD LAB BLOOD ORDERABLES Final R esult Performing Organization Address City/[facility]/ZIP Co de Phone Number [facility]) 1 [place] [address] * Blood culture Blood Blood (10/25/2024 10:42 AM CDT) Report Final Report: No growth Comment:Testing performed by : [facility], 1 [place]., [address] Blood (Blood) 10/25/2024 10: 42 AM CDT 10/25/2024 4:22 PM CDT Narrative [facility]) - 10/30/2024 7:00 AM CDT Collection->Peripheral 1. Blood cultures are incubated for 4 days on a continuously monitored blood culture system. The first report of a negative culture is issued within 24 hours of receipt of the specimen in the laboratory. 2. Positive culture results are reported as soon as they are detected. 3. The most important factor for detection of microbes in the setting of bloodstream infection is the volume of blood submitted for culture. Failure to collect an optimal blood volume can result in false negative blood cultures. 4. For pediatric patients, the recommended blood volume to collect follows a weight based strategy. See the electronic test catalog for collection instructions. 5. For positive blood cultures, a rapid molecular test may be performed for organism identification using the neptali ePlex blood culture identification panel for gram positive (BCID-GP) and gram negative (BCID-GN) organisms. This nucleic acid amplification test detects microbial DNA in positive blood culture broth. This assay has been cleared by the [place] Food and Drug Administration and its performance characteristics have been verified by the [facility]. For questions about this culture, contact the Microbiology Laboratory at [phone]. Interpretive data was last revised on 24. Josue Cannon MD LAB MICROBIOLOGY - GENERAL O RDERABLES Final Result [facility] 1 [facility] Department [place] [address] * Blood culture Blood Blood (10/25/2024 10:42 AM CDT) Report Final Report: No growth Comment:Testing performed by : [facility], 1 [place]., [address] Blood (Blood) 10/25/2024 10: 42 AM CDT 10/25/2024 4:22 PM CDT Narrative [facility] ([facility]) - 10/30/2024 7:00 AM CDT Collection->Peripheral 1. Blood cultures are incubated for 4 days on a continuously monitored blood culture system. The first report of a negative culture is issued within 24 hours of receipt of the specimen in the laboratory. 2. Positive culture results are reported as soon as they are detected. 3. The most important factor for detection of microbes in the setting of bloodstream infection is the volume of blood submitted for culture. Failure to collect an optimal blood volume can result in false negative blood cultures. 4. For pediatric patients, the recommended blood volume to collect follows a weight based strategy. See the electronic test catalog for collection instructions. 5. For positive blood cultures, a rapid molecular test may be performed for organism identification using the neptali ePlex blood culture identification panel for gram positive (BCID-GP) and gram negative (BCID-GN) organisms. This nucleic acid amplification test detects microbial DNA in positive blood culture broth. This assay has been cleared by the [place] Food and Drug Administration and its performance characteristics have been verified by the [facility]. For questions about this culture, contact the Microbiology Laboratory at [phone]. Interpretive data was last revised on 24. us Josue Cannon MD LAB MICROBIOLOGY - GENERAL O RDERABLES Final Result [facility] [place] 1 [facility] Department [place] [address] * CT Abdomen Pelvis W Contrast (10/25/2024 10:00 AM CDT) Anatomical Region Laterality Modality Body N/A Computed Tomogra phy 10/25/2024 10:0 7 AM CDT Narrative 10/25/2024 10:13 AM CDT EXAM DESCRIPTION: CT ABDOMEN PELVIS W CONTRAST REASON FOR STUDY: Abdominal pain, acute, nonlocalized Diarrhea for over 1 week, mucus in her stools. TECHNIQUE: CT scan of the abdomen and pelvis performed with intravenous and without oral contrast using helical scanning technique with dynamic intravenous contrast injection. Reconstructed coronal and sagittal MPR images reviewed. All images stored on PACS. Automated exposure control was used as a dose optimization technique for this examination. CONTRAST TYPE/DOSE: 75mL of IOVERSOL 350 MG IODINE/ML INTRAVENOUS SYRINGE injected via intravenous COMPARISON: None FINDINGS: LOWER CHEST: The heart size is normal. There is no definite evidence of pericardial effusion. There are atherosclerotic changes of the aorta and vasculature. 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 There are mild emphysematous changes of lungs with mild bibasilar subsegmental atelectasis and scarring. There is a small hiatal hernia. There is a right Bochdalek's hernia. LIVER: There is mild diffuse hepatic steatosis. There is a too small to characterize hypoattenuating lesion in the inferior right hepatic lobe measuring 0.4 cm, which does not require follow-up imaging. The hepatic and portal veins are grossly patent. GALLBLADDER: Grossly unremarkable. BILE DUCTS: No intrahepatic or extrahepatic ductal dilatation. SPLEEN: The spleen is grossly normal in size and unremarkable. PANCREAS: The pancreas appears grossly unremarkable without definite of pancreatic ductal dilatation, peripancreatic inflammatory changes, or peripancreatic fluid collection. ADRENALS: The bilateral adrenal glands are grossly symmetrical and unremarkable. KIDNEYS/URINARY TRACT: There is a dystrophic appearing right kidney, which is likely congenital. The left kidney enhances homogeneously. There are a few too small to characterize hypoattenuating lesions in the left kidney, which do not require follow-up imaging. There is no definite evidence of hydronephrosis or hydroureter. There is mild circumferential mucosal thickening of the urinary bladder. GI: There is no definite evidence of a bowel obstruction. The appendix is not visualized. There is diffuse mucosal thickening of the colon with mild pericolonic fat stranding. There are scattered colonic diverticula without definite evidence of diverticulitis. There is no definite evidence of free air or fluid in the abdomen and pelvis. There is no definite evidence of lymphadenopathy in the abdomen and pelvis. REPRODUCTIVE: The uterus is surgically absent. MUSCULOSKELETAL: There is mild osteopenia with degenerative changes spine, bilateral sacroiliac joints, and bilateral hips. OTHER: No other abnormality. IMPRESSION: No definite evidence of bowel obstruction. Diffuse mucosal thickening of the colon with mild pericolonic fat stranding, which is concerning for pancolitis of infectious or inflammatory etiology. Mild circumferential mucosal thickening of the urinary bladder, which may be related to underdistention versus cystitis. Clinical correlation with urinary analysis is recommended as clinically indicated. Scattered colonic diverticula without definite evidence of diverticulitis. Mild diffuse hepatic steatosis. 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 Vascular surgical consultation and management is recommended as clinically indicated. THIS IS AN ELECTRONICALLY VERIFIED FINAL REPORT 10/25/2024 10:13 AM - Electronically signed by Sakina Burns D.O. PS: PS Report ID: [id number] Reading Location: [id number] Procedure Note Sakina Burns DO - 10/25/2024 EXAM DESCRIPTION: CT ABDOMEN PELVIS W CONTRAST REASON FOR STUDY: Abdominal pain, acute, nonlocalized Diarrhea for over 1 week, mucus in her stools. TECHNIQUE: CT scan of the abdomen and pelvis performed with intravenousand without oral contrast using helical scanning technique with dynamic intravenous contrast injection. Reconstructed coronal and sagittal MPRimages reviewed. All images stored on PACS. Automated exposure control was usedas a dose optimization technique for this examination. CONTRAST TYPE/DOSE: 75mL of IOVERSOL 350 MG IODINE/ML INTRAVENOUSSYRINGE injected via intravenous COMPARISON: None FINDINGS: LOWER CHEST: The heart size is normal. There is no definite evidence of pericardial effusion. There are atherosclerotic changes of the aorta and vasculature. There is greater than 70% hemodynamically significantstenosis of the proximal superior mesenteric artery. There are mild emphysematous changes of lungs with mild bibasilar subsegmental atelectasis andscarring. There is a small hiatal hernia. There is a right Bochdalek's hernia. LIVER: There is mild diffuse hepatic steatosis. There is a too small to characterize hypoattenuating lesion in the inferior right hepatic lobe measuring 0.4 cm, which does not require follow-up imaging. The hepaticand portal veins are grossly patent. GALLBLADDER: Grossly unremarkable. BILE DUCTS: No intrahepatic or extrahepatic ductal dilatation. SPLEEN: The spleen is grossly normal in size and unremarkable. PANCREAS: The pancreas appears grossly unremarkable without definite of pancreatic ductal dilatation, peripancreatic inflammatory changes, or peripancreatic fluid collection. ADRENALS: The bilateral adrenal glands are grossly symmetrical and unremarkable. KIDNEYS/URINARY TRACT: There is a dystrophic appearing right kidney,which is likely congenital. The left kidney enhances homogeneously. There area few too small to characterize hypoattenuating lesions in the left kidney, which do not require follow-up imaging. There is no definite evidenceof hydronephrosis or hydroureter. There is mild circumferential mucosal thickening of the urinary bladder. GI: There is no definite evidence of a bowel obstruction. The appendixis not visualized. There is diffuse mucosal thickening of the colon withmild pericolonic fat stranding. There are scattered colonic diverticulawithout definite evidence of diverticulitis. There is no definite evidence offree air or fluid in the abdomen and pelvis. There is no definite evidence of lymphadenopathy in the abdomen and pelvis. REPRODUCTIVE: The uterus is surgically absent. MUSCULOSKELETAL: There is mild osteopenia with degenerative changesspine, bilateral sacroiliac joints, and bilateral hips. OTHER: No other abnormality. IMPRESSION: No definite evidence of bowel obstruction. Diffuse mucosal thickening of the colon with mild pericolonic fatstranding, which is concerning for pancolitis of infectious or inflammatoryetiology. Mild circumferential mucosal thickening of the urinary bladder, which maybe related to underdistention versus cystitis. Clinical correlation withurinary analysis is recommended as clinically indicated. Scattered colonic diverticula without definite evidence ofdiverticulitis. Mild diffuse hepatic steatosis. Atherosclerotic changes of the aorta and vasculature with greater than70% hemodynamically significant stenosis of the proximal superior mesenteric artery. Vascular surgical consultation and management is recommended as clinically indicated. THIS IS AN ELECTRONICALLY VERIFIED FINAL REPORT 10/25/2024 10:13 AM - Electronically signed by Sakina Burns D.O. PS: PS Report ID: [id number] Reading Location: [place] [address] Josue Cannon MD IMG CT PROCEDURES Final Resu lt * (ABNORMAL) Urinalysis reflex to microscopic and culture Urine (10/25/2024 9:03 AM CDT) Color, ur Yellow Yellow Clarity, ur Clear Clear [facility] ([facility]) Specific gravity, ur 1.017 1.003 - 1.030 [facility] ([facility]) pH, urine 5.5 [facility] ([facility]) Comment: Interpretive Data U rine pH is affected by diet, medications, systemic acid-base disturbances, and renal tubular function. pH may affect urinary stone formation. For example, urine pH below 6.0 may help reduce the tendency for calcium phosphate stones and pH greater than 6.0 may reduce the tendency for uric acid stone formation. Source: Hendricks Gaudena Current Interpretive Data was last revised on 2017 Protein, ur ql Negative Negative [facility] ([facility]) Glucose, ur ql Negative Negative [facility] ([facility]) Ketones, ur 1+(A) Negative [facility] ([facility]) Bilirubin, ur Negative Negative [facility] ([facility]) Blood, ur Negative Negative [facility] ([facility]) Urobilinogen, ur <2.0 <2.0 mg/dL [facility] ([facility]) Nitrite, ur Negative Negative [facility] ([facility]) Leukocyte esterase, ur Negative Negative [facility] ([facility]) UA reflex comment Reflex conditions for microscopic UA and culture not met. [facility] ([facility]) Urine 10/25/2024 9:03 AM CDT 10/25/2024 9:07 AM CDT Josue Cannon MD LAB MICROBIOLOGY - GENERAL O RDERABLES Final Result Performing Organization Address City/[facility] Co de Phone Number [facility] ([facility]) 1 [place] [address] * C. difficile testing Stool (10/25/2024 8:07 AM CDT) [facility] Result Negative Negative Toxin Result Negative Negative [facility] ([place]) C. diff result Negative, free toxin Negative, free toxin [facility] ([place]) C. diff interp Negative for toxigenic Clostridioides (Clostridium) difficile. Analysis was performed using a glutamate dehydrogenase antigen detection assay combined with a C. difficile toxin detection assay. [facility] ([facility]) Stool 10/25/2024 8:07 AM CDT 10/25/2024 8:12 AM CDT Josue Cannon MD LAB MICROBIOLOGY - GENERAL O RDERABLES Final Result Performing Organization Address City/[facility]/ZIP Co de Phone Number [facility] ([facility]) 1 [facility] [place] [address] * (ABNORMAL) eGFR (10/25/2024 8:07 AM CDT) Pathologist [facility] [place] eGFR 43(L) >=60 mL/min/1. 73 m2 Comment: Interpretive Data Reference Interval Normal >/= 90 mL/min/1.73m2 Mildly decreased* 60 - 89 mL/min/1.73m2 Mildly to moderately decreased 45 - 59 mL/min/1.73m2 Moderately to severely decreased 30 - 44 mL/min/1.73m2 Severely decreased 15 - 29 mL/min/1.73m2 Kidney Failure < 15 mL/min/1.73m2 *Relative to young adult level Estimated glomerular filtration rate is determined by the 2020 CKD-EPI equation recommended by the National Kidney Foundation (A Unifying Approach to GFR Estimation: Recommendations of the NKF-ASK Task Force on Reassessing the Inclusion of Race in Diagnosing Kidney Disease, JASN 2020). The CKD-EPI equation should not be used for patients with unstable renal function and has not been validated in children and those over 70. Current interpretive data was last reviewed 2021. Blood 10/25/2024 8:07 AM CDT 10/25/2024 8:12 AM CDT us Josue Cannon MD LAB BLOOD ORDERABLES Final R esult [facility] 1 [facility] Department [place] [address] * (ABNORMAL) Differential, auto (10/25/2024 8:07 AM CDT) Neutrophil abs 15.1(H) 1.5 - 6.5 K/cumm Imm gran abs 0.1 0.0 - 0.1 K/cumm [facility] ([facility]) Lymphocyte abs 1.3 0.8 - 3.3 K/cumm [facility] ([facility]) Monocyte abs 1.0(H) 0.2 - 0.8 K/cumm [facility] ([facility]) Eosinophil abs 0.1 0.0 - 0.5 K/cumm [facility] ([facility]) Basophil abs 0.0 0.0 - 0.1 K/cumm [facility] ([facility]) Neutrophil pct 86.0 % [facility] ([facility]) Comment: Interpretive Data Percent cell count reference ranges are not reported, since discordance with absolute values may lead to misinterpretation of CBC data. Current Interpretive Data was last revised on 2017. Imm gran pct 0.5 % [facility] ([facility]) Comment: Interpretive Data Percent cell count reference ranges are not reported, since discordance with absolute values may lead to misinterpretation of CBC data. Current Interpretive Data was last revised on 2017. Lymphocyte pct 7.2 % [facility] ([facility]) Comment: Interpretive Data Percent cell count reference ranges are not reported, since discordance with absolute values may lead to misinterpretation of CBC data. Current Interpretive Data was last revised on 2017. Monocyte pct 5.4 % [facility] ([facility]) Comment: Interpretive Data Percent cell count reference ranges are not reported, since discordance with absolute values may lead to misinterpretation of CBC data. Current Interpretive Data was last revised on 2017. Eosinophil pct 0.7 % [facility] ([facility]) Comment: Interpretive Data Percent cell count reference ranges are not reported, since discordance with absolute values may lead to misinterpretation of CBC data. Current Interpretive Data was last revised on 2017. Basophil pct 0.2 % [facility] ([facility]) Comment: Interpretive Data Percent cell count reference ranges are not reported, since discordance with absolute values may lead to misinterpretation of CBC data. Current Interpretive Data was last revised on 2017. Blood 10/25/2024 8:07 AM CDT 10/25/2024 8:12 AM CDT Josue Cannon MD LAB BLOOD ORDERABLES Final R esult [facility] ([facility]) 1 [facility] Department of Laboratories [place], [place] [id number] * (ABNORMAL) CBC with auto differential (10/25/2024 8:07 AM CDT) WBC 17.5(H) 3.8 - 9.9 K/cumm Hgb 14.0 11.9 - 15.5 g/dL [facility] ([facility]) Hct 41.2 35.6 - 45.5 % [facility] ([facility]) Plt 364 150 - 400 K/cumm [facility] ([facility]) MPV 9.4 9.1 - 12.3 fL [facility] ([facility]) RBC 4.54 3.90 - 5.20 M/cumm [facility] ([facility]) MCV 90.7 81.3 - 96.4 fL [facility] ([facility]) MCH 30.8 27.1 - 33.3 pg [facility] ([facility]) MCHC 34.0 32.3 - 35.7 g/dL [facility] ([facility]) RDW CV 12.3 11.1 - 14.9 % [facility] ([place]) RDW SD 41.1 35.7 - 48.1 fL [facility] ([place]) NRBC abs 0.00 0.00 - 0.01 K/cumm [facility] ([place]) Blood 10/25/2024 8:07 AM CDT 10/25/2024 8:12 AM CDT Josue Cannon MD LAB BLOOD ORDERABLES Final R esult Performing Organization Address [facility] Co de Phone Number [facility] ([place]) 1 [facility] [place] [address] * Stool culture Stool Rectum (10/25/2024 8:07 AM CDT) Direct Specimen Exam Shiga Toxin Testing: Antigen detection assay for Shiga-toxin NEGATIVE for Shiga Toxin 1 and Shiga Toxin 2. Comment:Testing performed by : [facility], [address] [place]., [address] Report Final Report: No growth of enteric bacterial pathogens [facility] ([place]) Comment:Testing performed by : [facility], [address] [place] [address]., [id number] Stool (Rectum) 10/25/2024 8: 07 AM CDT 10/25/2024 11:43 AM CDT Narrative [facility] ([place]) - 10/30/2024 4:03 PM CDT Testing performed by [facility] ([phone]). Routine stool cultures include procedures to detect Salmonella, Shigella, Edwardsiella, Aeromonas, Pleisiomonas, Campylobacter, Yersinia, E. coli O157, and Shiga-like toxins. Vibrio is cultured only upon special request. If Vibrio is suspected, please call the laboratory at [phone]. Interpretive data was last updated December 18, 2016. Josue Cannon MD LAB MICROBIOLOGY - GENERAL O RDERABLES Final Result Performing Organization Address [facility]/State/ZIP Co de Phone Number [facility] ([facility]) 1 [facility] Department [place] [address] * Lipase (10/25/2024 8:07 AM CDT) Lipase 14 10 - 99 Units/L Blood 10/25/2024 8:07 AM CDT 10/25/2024 8:12 AM CDT Josue Cannon MD LAB BLOOD ORDERABLES Final R esult [facility] ([facility]) 1 [facility] [place] [address] * (ABNORMAL) Comprehensive metabolic panel (10/25/2024 8:07 AM CDT) Sodium 135 135 - 145 mmol/L Potassium, pl 3.3 3.3 - 4.9 mmol/L [facility] ([facility]) Chloride 98 97 - 110 mmol/L [facility] ([facility]) CO2 19(L) 22 - 32 mmol/L [facility] ([facility]) Anion gap 19(H) 2 - 15 mmol/L [facility] ([facility]) BUN 24 6 - 25 mg/dL [facility] ([facility]) Creatinine 1.33(H) 0.60 - 1.10 mg/dL [facility] ([facility]) Glucose 109 70 - 199 mg/dL [facility] ([facility]) Comment: Interpretive Data Fasting glucose >/= 126 mg/dl is diagnostic for diabetes. Fasting is defined as no caloric intake for at least 8 hours. Fasting glucose between 100 mg/dl to 125 mg/dl is diagnostic of prediabetes. In a patient with classic symptoms of hyperglycemia or hyperglycemic crisis, a random glucose >/= 200 mg/dl is diagnostic for diabetes. In the absence of unequivocal hyperglycemia, results should be confirmed by repeat testing. The classification and Diagnosis of Diabetes Diabetes Care 2021; 46: S19-S40. Current interpretive data was last revised 2022. Calcium 9.4 8.5 - 10.3 mg/dL [facility] ([facility]) Bilirubin, total 0.6 0.1 - 1.2 mg/dL [facility] ([facility]) Protein, pl 7.1 6.5 - 8.5 g/dL [facility] ([facility]) Albumin 4.2 3.5 - 5.0 g/dL [facility] ([facility]) Alk phos 93 40 - 130 Units/L [facility] ([facility]) ALT 9 7 - 45 Units/L [facility] ([facility]) AST 16 10 - 45 Units/L [facility] ([facility]) Blood 10/25/2024 8:07 AM CDT 10/25/2024 8:12 AM CDT us Josue Cannon MD LAB BLOOD ORDERABLES Final R esult [facility] ([facility]) 1 [facility] [place] [address] from Last 3 Months Insurance [employer] [place] [id number] Advance Directives For more information, please contact: [phone] * Full Code (Latest Code Status on File) Date Activated Date Inactivated Comments 10/25/2024 12:49 PM 10/28/2024 8:15 PM Care Teams Demand Planning Analyst Relationship Specialty Start Date End Date Molly Poe NP [facility] [place] [address] PCP - General Nurse Practitioner 10/25/24
--- OUTSIDE RECORDS SUMMARY | 2024-11-07 12:07 | XMS_ITS | Clinical Summary ---
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 Name Role Phone Lui Molly KRISTINA Primary Care Provider [phone] Allergies Active Allergy Reactions Criticality Noted Date Comments Amlodipine Swelling Medium 11/09/2023 Nitrofurantoin Nausea and Vomiting 02/26/2020 Denosumab Myalgias 09/14/2022 Medications valACYclovir (VALTREX) 500 MG tabletIndicatio ns:HSV infection TAKE 1 TABLET BY MOUTH EVERY DAY 90 tablet 08/28/19 23 Active Additional Information Patient not taking.Reported on 11/09/2023 losartan (COZAAR) 50 MG tabletIndicatio ns:Essential hypertension TAKE 1 TABLET BY MOUTH EVERY DAY 90 tablet 06/18/20 23 Active albuterol sulfate HFA (PROAIR HFA) 108 (90 Base) MCG/ACT inhalerIndicati ons:Chronic obstructive pulmonary disease, unspecified COPD type (CMS/HCC HHS/HCC) Inhale 2 puffs into the lungs every 6 (six) hours as needed for Wheezing. 18 g 3 09/13/19 24 Active cefdinir (OMNICEF) 300 MG Cap capsuleIndicati ons:Acute non-recurrent maxillary sinusitis Take 1 capsule (300 mg total) by mouth 2 (two) times daily. 20 capsule 11/22/19 24 Active triamterene-hyd roCHLOROthiazid e (MAXZIDE-25) 37.5-25 MG tabletIndicatio ns:Essential hypertension TAKE 1 TABLET BY MOUTH EVERY DAY 90 tablet 3 10/08/19 25 Active amLODIPine (NORVASC) 5 MG tabletIndicatio ns:Primary hypertension Take 1 tablet (5 mg total) by mouth daily. 30 tablet 5 08/16/19 24 Discontinued Active Problems Problem Noted Date Diagnosed Date Polyp of colon 11/18/2020 Ganglion cyst 11/18/2020 Depressive disorder 11/18/2020 Cataract 11/18/2020 Asthma ([facility]) 11/18/2020 Anxiety 11/18/2020 Mixed hyperlipidemia 10/05/2020 COPD (chronic obstructive pu lmonary disease) ([facility]) 02/26/2020 Hypertension 02/26/2020 Chronic neck pain 02/26/2020 Abnormal electrocardiogram 02/18/2019 Osteoporosis 11/12/2017 Cervical disc disorder 11/15/2012 Resolved Problems Problem Noted Date Diagnosed Date Resolved Date Noninfected skin tear of lef t lower extremity, initial encounter 11/22/2020 11/09/2023 Peripheral vascular disease 02/25/2019 10/18/2021 Claudication 01/27/2019 10/18/2021 Nicotine dependence, unspeci fied, uncomplicated 01/27/2019 10/18/2021 Encounters Date Type Department Care Team Description 10/29/2024 Patient Outreach [facility] Family [facility] Internal [address] [phone] Daphne Ruiz RN Hospital Follow Up 10/28/2024 Patient Outreach [facility] Internal [address] [phone] Daphne Ruiz RN Hospital Follow Up 10/25/2024 Scan [facility] HE[facility] INFO SRVCS Scanned, [facility] from Last 3 Months Immunizations Name Administration Dates Next Due Fluzone High Dose - >Age 65 (Prefilled Syringe) 04/24/2018 Influenza (Generic) 06/02/2016,06/10/2015,2013 Influenza Adult (Generic) 10/12/2021(Def erred: Patient Refused),04/24/2018,06/06/2017,06/06/20 17,06/02/2016,06/10/2015,05/28/2014 Pneumococcal (Generic) 06/11/2006 Pneumococcal (Pneumovax 23) 04/24/2018 Pneumococcal (Prevnar 13) 06/12/2019 Tdap (Generic) 11/17/2013 Zoster (Zostavax) [address] Unt/0.65Ml 11/17/2013 Family History Medical History Relation Comments COPD Brother Heart Disease Brother Cancer Father liver Cancer Mother esophageal Aneurysm Sister Diabetes Sister Relation Status Comments Brother twin Father Mother Sister Social History Tobacco Use Types Packs/Day Years Used Date Smoking Tobacco: Former Cigarettes 0.5 45 1 10/03/1972 - 08/02/2018 Passive Smoke Exposure: Past Smokeless Tobacco: Never Tobacco Cessation:Counseling Given: Yes Alcohol Use Standard Drinks/Week Comments Yes 0 (1 standard drink = 0.6 oz pur e alcohol) 4-5 per day PHQ-2 Answer Date Recorded Patient Health Questionnaire-2 Score 3 11/09/2023 Comments No Sex and Gender Information Value Date Recorded Sex Assigned at Not on file Legal Sex Female 9:01 AM CDT Gender Identity Female 10/06/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 Sexual Orientation Not on file Last Filed Vital Signs Vital Sign Reading Time Taken Comments Blood Pressure 154/82 11/09/2023 8:22 AM CDT Pulse 79 11/09/2023 7:41 AM CDT Temperature 35.9 C (96.6 F) 11/09/2023 7:41 AM CDT Respiratory Rate 16 11/09/2023 7:41 AM CDT Oxygen Saturation 99% 11/09/2023 7:41 AM CDT Inhaled Oxygen Concentration - - Weight 63.6 kg (140 lb 3.2 oz) 11/09/2023 7:41 A M CDT Height 160 cm (5' 3 ) 11/09/2023 7:41 AM CDT Body Mass Index 24.84 11/09/2023 7:41 AM CDT Plan of Treatment Upcoming Encounters Date Type Department Care Team (Late st Contact Info) Description 11/26/2024 11:30 AM CDT [facility] [address] [place] [phone] Danish Guzman MD [address] [address] Health Maintenance Due Date Last Done Comments Lung Cancer Screening 2002 RSV Immunization or 60+ Years (1 - Risk 60-74 years 1-dose series) 2012 Zoster Vaccines (2 of 3) 01/12/2014 11/17/2013 Annual Medicare Wellness Visit 2017 DTaP, Tdap and Td Vaccines (2 - Td or Tdap) 11/18/2023 11/17/2013 COVID-19 Vaccine ( - season) 2024 09/19/2021, 04/06/2021, 03/16/2021 Influenza Adult (#1) 2024 04/24/2018, 04/24/2018, 06/06/2017, Additional history exists PHQ-2 (Physician [place]) 08/13/2024 11/09/2023 Colorectal Cancer Screening FIT-DNA (3 Years) 10/24/2024 10/24/2021, 10/24/2021 Mammogram Screening 10/23/2025 10/24/2023, 08/29/2022, 06/06/2021, Additional history exists Colorectal Cancer Screening Colonoscopy (10 Years) Discontinued 01/15/2014 Pneumococcal Vaccine: 65+ Years Completed 06/12/2019, 04/24/2018 Dexa Scan (General) Completed 01/11/2022, 01/11/2022, 06/04/2019, Additional history exists Hepatitis C Completed 11/09/2023 Meningococcal B Vaccine Aged Out No l onger eligible based on patient's age to complete this topic Meningococcal Vaccine Aged Out No mag pato eligible based on patient's age to complete this topic RSV Immunizations Under 20 Months Aged Out No longer eligible based on patient's age to complete this topic Procedures Procedure Name Priority Date/Time Associated Diagnosis Comments HEPATITIS C ANTIBODY Routine 11/09/2023 8:38 AM CDT Need for hepatitis C screening test MAMMOGRAM GENERIC (SCAN ORDER) 10/24/2023 BONE DENSITY GENERIC (SCAN ORDER) 01/11/2022 COLOGUARD (EXACT SCIENCE) Routine 10/24/2021 8:30 AM CDT Colon cancer screening COLONOSCOPY GENERIC (SCAN ORDER) 01/15/2014 from Last 3 Months or Most Recently Relevant to Health Maintenance Results * HEPATITIS C AB ([facility] ONLY) (11/09/2023 8:38 AM CDT) Pathologist [facility] HEPATITIS C AB NON-REACTI VE NON-REACT SUDHA 11/09/2023 7:03 PM CDT [facility] Comment: ANTIBODIES TO HCV NOT DETECTED. DOES NOT EXCLUDE THE POSSIBILITY OF EXPOSURE TO HCV. 11/09/2023 8:38 AM CDT us [facility] Final Resul t [facility] [address] [place] [address], [place] [phone] [id number] * MAMMOGRAM GENERIC (SCAN ORDER) (10/24/2023) Anatomical Region Laterality Modality Other 10/24/2023 us [facility] Scanned SCANNING Final Resu lt * BONE DENSITY GENERIC (01/11/2022) Anatomical Region Laterality Modality Other 01/11/2022 Narrative 01/11/2022 Ordered by an unspecified provider. us Documents Scanned SCANNING Final Result * COLOGUARD (EXACT SCIENCE) (10/24/2021 8:30 AM CDT) Pathologist [facility] COLOGUARD RESULT Negative Negative [place] (CLIA #:[id number]) Comment: NEGATIVE TEST RESULT. A negative Cologuard result indicates a low likelihood that a colorectal cancer (CRC) or advanced adenoma (adenomatous polyps with more advanced pre-malignant features) is present. The chance that a person with a negative Cologuard test has a colorectal cancer is less than 1 in 1500 (negative predictive value >99.9%) or has an advanced adenoma is less than 5.3% (negative predictive value 94.7%). These data are based on a prospective cross-sectional study of 10,000 individuals at average risk for colorectal cancer who were screened with both Cologuard and colonoscopy. (Awa Ford, N Engl J Med 2014;370(14):4333-4758) The normal value (reference range) for this assay is negative. COLOGUARD RE-SCREENING RECOMMENDATION: Periodic colorectal cancer screening is an important part of preventive healthcare for asymptomatic individuals at average risk for colorectal cancer. Following a negative Cologuard result, the [place] Cancer Society and U.S. Multi-Society Task Force screening guidelines recommend a Cologuard re-screening interval of 3 years. References: [place] Cancer Society Guideline for Colorectal Cancer Screening: https://www.cancer.org/cancer/uhxcu-cniymr-pqlvnv/ovcqxptad-ceqspwkur-wiqbkha/ac s-rec ommendations.html.; James DK, Mark CR, Jennifer VillagranK, Colorectal Cancer Screening: Recommendations for Physicians and Patients from the U.S. Multi-Society Task Force on Colorectal Cancer Screening , Am J Gastroenterology 2017; 112:9350-1671. TEST DESCRIPTION: Composite algorithmic analysis of stool DNA-biomarkers with hemoglobin immunoassay. Quantitative values of individual biomarkers are not reportable and are not associated with individual biomarker result reference ranges. Cologuard is intended for colorectal cancer screening of adults of either sex, 45 years or older, who are at average-risk for colorectal cancer (CRC). Cologuard has been approved for use by the U.S. FDA. The performance of Cologuard was established in a cross sectional study of average-risk adults aged 50-84. Cologuard performance in patients ages 45 to 49 years was estimated by sub-group analysis of near-age groups. Colonoscopies performed for a positive result may find as the most clinically significant lesion: colorectal cancer [4.0%], advanced adenoma (including sessile serrated polyps greater than or equal to 1cm diameter) [20%] or non- advanced adenoma [31%]; or no colorectal neoplasia [45%]. These estimates are derived from a prospective cross-sectional screening study of 10,000 individuals at average risk for colorectal cancer who were screened with both Cologuard and colonoscopy. (Awa Ford, N Engl J Med 2014;370(14):6737-2502.) Cologuard may produce a false negative or false positive result (no colorectal cancer or precancerous polyp present at colonoscopy follow up). A negative Cologuard test result does not guarantee the absence of CRC or advanced adenoma (pre-cancer). The current Cologuard screening interval is every 3 years. ([place] Cancer Society and U.S. Multi-Society Task Force). Cologuard performance data in a 10,000 patient pivotal study using colonoscopy as the reference method can be accessed at the following location: www.[employer].com/results. Additional description of the Cologuard test process, warnings and precautions can be found at www.cologuard.com. STOOL STOOL SPECIMEN / Unknown 10/24/2021 8:30 AM CDT 10/25/2021 12:18 PM CDT [facility] JOSEE CARTWRIGHT Final Result [facility] ([facility]) [address] [place] [address], [employer] (CLIA #:[id number]) [address] [place] [address] * COLONOSCOPY GENERIC (01/15/2014) 01/15/2014 Narrative 01/15/2014 Ordered by an unspecified provider. 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
--- OUTSIDE RECORDS SUMMARY | 2024-11-07 12:07 | XMS_ITS | CONTINUITY OF CARE DOCUMENT ---
Author Name zaria, zaria Address Unknown Organization [facility] Address [address] [place] [address] Phone [phone] Care Team Providers Care Marketing Graphics Specialist Name Role Phone Nicko DODGE, Chito Unavailable TIMUR BANDA Unavailable TIMUR BANDA Unavailable PROBLEMS [...] In-person encounter Office Visit Chito Maharaj MD [facility] Cardiology examinationEssential Hypertension-nml stress nuc and echo - In-person encounter Office Visit Chito Maharaj MD [facility] COPDClaudicationEssential Hypertension-nml stress nuc and echoHyperlipidemiaTOBACCO ABUSE QUIT VITAL SIGNS Date Observation Value Provider Body Mass Index (Ratio) 24.87 kg/m2 Tenzin Maharaj MD blood pressure, diastolic 80 mm[Hg] Jonas [place] blood pressure, systolic 138 mm[Hg] Sweta [place] oxygen saturation, oximetry 97 % Jaylin [place] respiratory rate E&M 16 /min Jaylin Paris pulse rate 68 /min [place] weight E&M 136 [lb_av] Jaylin Paris blood pressure, resting Yes Kaylah painter [place] height E&M 62 [in_i] Jaylin [place] Body Mass Index (Ratio) 23.96 kg/m2 Tenzin aMharaj MD blood pressure, cuff size regular Cy [...] of grandchildren Chito Maharaj MD K yimi [place] smoking, year quit 2018 Jaylin Hannah ngregina smoking history, total pack/day 1/2 PPD [facility] cigarette use yes Jaylin Paris smoking [...] Payer name Policy type / Coverage type [place] red democr[employer] ID [employer] [facility] Other [id number] ADVANCE DIRECTIVES Name Date DISCUSSED - NO [...]
--- OUTSIDE RECORDS SUMMARY | 2024-11-07 12:07 | XMS_ITS | Clinical Summary ---
Author Organization [facility] Address [address] [place] [address] Care Team Providers Care Tower Erector Helper Name Role Phone Molly Poe NP Primary Care Provider [phone] Allergies Active Allergy Reactions Criticality Noted Date [...] origin Lower abdominal pain 10/26/2024 Colitis 10/25/2024 Encounters Date Type Department Care Team Description 11/03/2024 [facility] Post Discharge Follow up phone call [facility] [address] [place] [address] Kimber Butt RN 11/03/2024 [facility] Post Discharge Follow up phone call [facility] [address] [place] [address] Ofe Chavira 10/25/2024 7:31 AM CDT - 10/28/2024 4:15 PM CDT Hospital Encounter [facility] [address] [place] [address] Josue Cannon MD Nikolic, Jelena, MD Kheirkhahan, Nazanin, MD Fasick, Victoria Rose, Colitis (Primary Dx); Diarrhea of presumed infectious origin; Lower abdominal pain Discharge Disposition: Discharge to home or self care from Last 3 Months Social History Tobacco Use Types Packs/Day Years Used Date Smoking Tobacco: Former Cigarettes Smokeless Tobacco: Never Tobacco Cessation:Counseling Given: Not Answered [facility] Utilities Answer Date Recorded In the past 12 months has [employer] electric, gas, oil, or water company threatened to shut off services in your home? No 10/27/2024 Social Connection and Isolation Panel [NHANES] A nswer Date Recorded In a typical week, how many times do you talk on the phone with family, friends, or neighbors? Never 10/27/2024 How often do you get together with friends or re latives? Never 10/27/2024 How often do you attend mormon or lutheran serv ices? Never 10/27/2024 Do you belong to any clubs o r organizations such as mormon groups, unions, fraternal or athletic groups, or [...] any time in the past 12 m [facility], were you homeless or living in a long-term (including now)? No 10/27/2024 Personal Safety Answer Date Recorded Have you ever been in or are you currently in a harmful physical or emotional relationship or is someone making you feel afraid or unsafe? Denies 10/25/2024 Comments No Sex and Gender Information Value Date Recorded Sex Assigned at Not on file Legal Sex Female 3:26 PM [employer] WORK[employer] Gender Identity Not on file Sexual Orientation Not on file Obstetrics History Last Filed Vital Signs Vital Sign Reading [...] 10/25/2024 2:30 PM CDT Plan of Treatment Health Maintenance Due Date Last Done Comments Breast Cancer Screening-Mammogram 1952 Colon Cancer Screening-Colonoscopy 1950 Depression Screening 1950 Hepatitis C Screening 1950 Osteoporosis Screening-Bone Density Scan 1952 Hepatitis B Screening 1970 Zoster Vaccine (2 of 3) 01/12/2014 11/17/2013 Well Visit 65+ 2017 DTaP/Tdap/Td Vaccine (2 - Td or Tdap) 11/18/2023 11/17/2013 Covid-19 Vaccine (4 - 2023-2 5 season) 2024 09/19/2021, 04/06/2021, 03/16/2021 Influenza Vaccine (#1) 2024 8, 06/06/2017, 06/02/2016, Additional history exists Fall Risk Assessment 10/28/2025 10/28/2024 Pneumococcal vaccine 65+ Completed 019, 04/24/2018, 06/11/2006 Procedures Procedure Name Priority Date/Time Associated Diagnosis [...] Hct 36.2 35.6 - 45.5 % [facility] ([facility]) Blood 10/28/2024 12:4 5 PM CDT 10/28/2024 12:54 PM CDT Maribeth Arrington DO LAB BLOOD ORDERABLES Fin al Result [facility] ([facility]) 1 [facility] Department [place] [address] * eGFR (10/28/2024 5:27 AM CDT) eGFR [...] MD LAB BLOOD ORDERABLES Final Res ult [facility] ([facility]) 1 [facility] Department [place] [address] * Differential, auto (10/28/2024 5:27 AM CDT) Neutrophil abs 2.8 1.5 - 6.5 K/cumm Imm gran abs 0.0 0.0 - 0.1 K/cumm [facility] ([facility]) Lymphocyte abs 1.8 0.8 - 3.3 [...] MD LAB BLOOD ORDERABLES Final Res ult [facility] ([facility]) 1 [facility] Department [place] [address] * (ABNORMAL) CBC with auto differential (10/28/2024 [...] (FE) MCHC 33.9 32.3 - 35.7 g/dL [facility] ([facility]) RDW CV 12.5 11.1 - 14.9 % [facility] ([facility]) RDW SD 41.1 35.7 - 48.1 fL [facility] ([facility]) NRBC abs 0.00 0.00 - 0.01 K/cumm [facility] ([facility]) Blood 10/28/2024 5:27 AM CDT 10/28/2024 5:49 AM CDT us Mrai Alvarez MD LAB BLOOD ORDERABLES Final Res ult [facility] ([facility]) 1 [facility] Department [place] [address] * (ABNORMAL) Basic metabolic panel (10/28/2024 5:27 AM CDT) Sodium 140 135 - 145 mmol/L Potassium, pl 3.1(L) 3.3 - 4.9 mmol/L [facility] (FE) Chloride 102 97 - 110 mmol/L [facility] ([facility]) CO2 25 22 - 32 mmol/L [facility] ([facility]) Anion gap 13 2 - 15 mmol/L [facility] ([facility]) BUN 6 6 - 25 mg/dL [facility] ([facility]) Creatinine 0.76 0.60 - 1.10 mg/dL [facility] (FE) Glucose 89 70 - 199 mg/dL [facility] (FE) [...] 2022. Calcium 8.0(L) 8.5 - 10.3 mg/dL [facility] ([facility]) Blood 10/28/2024 5:27 AM CDT 10/28/2024 5:49 AM CDT us Mari Alvarez MD LAB BLOOD ORDERABLES Final Res ult [facility] ([place]) [address] [place] [address] [place] [place] [address] * (ABNORMAL) Calcium, ionized, whole blood (10/27/2024 11:06 AM CDT) Ca, ionized, bld 4.21(L) 4.50 - 5.10 mg/dL Blood 10/27/2024 11:0 6 AM CDT 10/27/2024 11:12 AM CDT us Yvette Jacob MD LAB BLOOD ORDERABLES Socorro l Result Performing Organization Address [facility] Co de Phone Number [facility] ([place]) 1 [facility] [place] [place] [address] * eGFR (10/27/2024 11:06 AM CDT) eGFR [...] BLOOD ORDERABLES Final Res ult [facility] ([place]) 1 [facility] Department [place] [address] * Differential, auto (10/27/2024 11:06 AM CDT) Neutrophil abs 5.4 1.5 - 6.5 K/cumm Imm gran abs 0.0 0.0 - 0.1 K/cumm [facility] ([place]) Lymphocyte abs 1.7 0.8 - 3.3 K/cumm [facility] ([place]) Monocyte abs 0.5 0.2 - 0.8 K/cumm [facility] ([place]) Eosinophil abs 0.1 0.0 - 0.5 K/cumm [facility] ([place]) Basophil abs 0.0 0.0 - 0.1 K/cumm [facility] ([place]) Neutrophil pct 69.3 % [facility] ([place]) Comment: Interpretive Data Percent cell count reference ranges are not reported, since discordance with absolute values may lead to misinterpretation of CBC data. Current Interpretive Data was last revised on 2017. Imm gran pct 0.3 % [facility] ([place]) Comment: Interpretive Data Percent cell count reference ranges are not reported, since discordance with absolute values may lead to misinterpretation of CBC data. Current Interpretive Data was last revised on 2017. Lymphocyte pct 22.2 % [facility] ([place]) Comment: Interpretive Data Percent cell count reference ranges are not reported, since discordance with absolute values may lead to misinterpretation of CBC data. Current Interpretive Data was last revised on 2017. Monocyte pct 6.6 % [facility] ([place]) Comment: Interpretive Data Percent cell count reference ranges are not reported, since discordance with absolute values may lead to misinterpretation of CBC data. Current Interpretive Data was last revised on 2017. Eosinophil pct 1.3 % [facility] ([place]) Comment: Interpretive Data Percent cell count reference [...] Final Res ult [facility] ([facility]) 1 [facility] Department [place] [address] * CBC with auto differential (10/27/2024 11:06 AM CDT) WBC 7.7 3.8 - 9.9 K/cumm Hgb 12.7 11.9 - 15.5 g/dL [facility] ([facility]) Hct 37.5 35.6 - 45.5 % [facility] ([facility]) Plt 318 150 - 400 K/cumm [facility] ([facility]) MPV 9.2 9.1 - 12.3 fL [facility] ([facility]) RBC 4.13 3.90 - 5.20 M/cumm [facility] ([place]) MCV 90.8 81.3 - 96.4 fL [facility] ([facility]) MCH 30.8 27.1 - 33.3 pg [facility] ([facility]) MCHC 33.9 32.3 - 35.7 g/dL [facility] ([facility]) RDW CV 12.5 11.1 - 14.9 % [facility] ([facility]) RDW SD 41.4 35.7 - 48.1 fL [facility] ([facility]) NRBC abs 0.00 0.00 - 0.01 K/cumm [facility] ([facility]) Blood 10/27/2024 11:0 6 AM CDT 10/27/2024 11:12 AM CDT us Mari Alavrez MD LAB BLOOD ORDERABLES Final Res ult [facility] ([facility]) 1 [facility] [place] [address] * (ABNORMAL) Basic metabolic panel (10/27/2024 11:06 AM CDT) Sodium 139 135 - 145 mmol/L Potassium, pl 3.3 3.3 - 4.9 mmol/L [facility] ([facility]) Chloride 99 97 - 110 mmol/L [facility] ([facility]) CO2 27 22 - 32 mmol/L [facility] ([facility]) Anion gap 14 2 - 15 mmol/L [facility] ([facility]) BUN 8 6 - 25 mg/dL [facility] ([facility]) Creatinine 0.81 0.60 - 1.10 mg/dL [facility] ([facility]) Glucose 98 70 - 199 mg/dL [facility] ([facility]) [...] classification and Diagnosis of Diabetes Diabetes Care 202; 46: S19-S40. Current interpretive data was last revised 2022. Calcium 8.4(L) 8.5 - 10.3 mg/dL [facility] ([facility]) Blood 10/27/2024 11:0 6 AM CDT 10/27/2024 11:12 AM CDT Mari Alvarez MD LAB BLOOD ORDERABLES Final Res ult [facility] ([facility]) 1 [facility] Department [place] [address] * Potassium (10/26/2024 2:01 PM CDT) Potassium, pl 3.7 3.3 - 4.9 mmol/L Blood 10/26/2024 2:01 PM CDT 10/26/2024 2:13 PM CDT Yvette Jacob MD LAB BLOOD ORDERABLES Socorro l Result [facility] ([place]) 1 [facility] [place] [employer] [place] [address] * Calcium, ionized, whole blood (10/26/2024 9:37 AM CDT) [facility] Ca, ionized, bld 4.59 4.50 - 5.10 mg/dL Blood 10/26/2024 9:37 AM CDT 10/26/2024 9:40 AM CDT Yvette Jacob MD LAB BLOOD ORDERABLES Socorro l Result [facility] ([place]) 1 [facility] [place] [employer] [place] [address] * Magnesium (10/26/2024 8:31 AM CDT) [facility] Magnesium 1.6 1.4 - 2.5 mg/dL Blood 10/26/2024 8:31 AM CDT 10/26/2024 8:43 AM CDT Yvette Jacob MD LAB BLOOD ORDERABLES Socorro l Result [facility] ([place]) 1 [facility] [place] [employer] [place] [address] * eGFR (10/26/2024 5:08 AM CDT) [facility] eGFR 63 >=60 mL/min/1. 73 m2 Comment: [...] MD LAB BLOOD ORDERABLES Final Res ult [facility] ([place]) 1 [facility] Department [place] [address] * (ABNORMAL) Differential, auto (10/26/2024 5:08 AM [...] revised on 2017. Monocyte pct 9.1 % [facility] ([facility]) Comment: Interpretive Data Percent cell [...] revised on 2017. Basophil pct 0.3 % [facility] ([facility]) Comment: Interpretive Data Percent cell count reference ranges are not reported, since discordance with absolute values may lead to misinterpretation of CBC data. Current Interpretive Data was last revised on 2017. Blood 10/26/2024 5:08 AM CDT 10/26/2024 6:03 AM CDT us Mari Alvarez MD LAB BLOOD ORDERABLES Final Res ult [facility] ([place]) 1 [facility] Department [place] [address] * (ABNORMAL) CBC with auto differential (10/26/2024 5:08 AM CDT) WBC 9.0 3.8 - 9.9 K/cumm Hgb 11.4(L) 11.9 - 15.5 g/dL [facility] ([facility]) Hct 34.6(L) 35.6 - 45.5 % [facility] ([facility]) Plt 266 150 - 400 K/cumm [facility] ([facility]) MPV 9.7 9.1 - 12.3 fL [facility] ([facility]) RBC 3.74(L) 3.90 - 5.20 M/cumm [facility] ([facility] MCV 92.5 81.3 - 96.4 fL [facility] ([facility]) MCH 30.5 27.1 - 33.3 pg [facility] ([facility]) MCHC 32.9 32.3 - 35.7 g/dL [facility] ([facility]) RDW CV 12.5 11.1 - 14.9 % [facility] ([facility]) RDW SD 42.7 35.7 - 48.1 fL [facility] ([facility]) NRBC abs 0.00 0.00 - 0.01 K/cumm [facility] Blood 10/26/2024 5:08 AM CDT 10/26/2024 6:03 AM CDT us Mari Alvarez MD LAB BLOOD ORDERABLES Final Res ult [facility] ([facility]) 1 [facility] Department [place] [address] * (ABNORMAL) Basic metabolic panel (10/26/2024 5:08 AM CDT) Sodium 136 135 - 145 mmol/L Comment:breanna alejandro Potassium, pl 2.8(C) 3.3 - 4.9 mmol/L [facility] ([facility] Comment:Critical Result call ed by [email or web address] at 2024-10-26 07:08:16. Result Read Back by breanna bacon [facility] Chloride 102 97 - 110 mmol/L [facility] ([facility] Comment:breanna bacon [facility] CO2 15(L) 22 - 32 mmol/L [facility] ([facility] Comment:breanna alejandro Anion gap 20(H) 2 - 15 mmol/L [facility] ([facility] Comment:breanna bacon mcu BUN 18 6 - 25 mg/dL [facility] ([facility] Comment:breanna bacon mcu Creatinine 0.96 0.60 - 1.10 mg/dL [facility] ([facility]) Comment:breanna bakeroln [facility] Glucose 61(L) 70 - 199 mg/dL [facility] ([place]) Comment: otonieleliazar jordi [facility] Interpretive Data Fasting glucose >/= 126 mg/dl [...] Calcium 8.0(L) 8.5 - 10.3 mg/dL [facility] ([place]) Comment:otonielwestleysavannah bacon [facility] Blood 10/26/2024 5:08 AM CDT 10/26/2024 6:03 AM CDT us Mari Alvarez MD LAB BLOOD ORDERABLES Final Res ult [facility] ([place]) 1 [facility] [place] [address] * Sepsis Lactate w/ Reflex (10/25/2024 12:00 PM CDT) Sepsis Lactate 1.3 0.7 - 2.0 mmol/L Blood 10/25/2024 12:0 0 PM CDT 10/25/2024 12:03 PM CDT us Josue Cannon MD LAB BLOOD ORDERABLES Final R esult [facility] ([place]) 1 [facility] [place] [address] * Blood culture Blood Blood (10/25/2024 10:42 AM CDT) Report Final Report: No growth Comment:Testing performed by : [facility], [address] [place]., [address] Blood (Blood) 10/25/2024 10: 42 AM CDT [...] performance characteristics have been verified by the [facility] Microbiology Laboratory. For questions about this culture, contact the Microbiology Laboratory at [phone]. Interpretive data was last revised on 24. Josue Cannon MD LAB MICROBIOLOGY - GENERAL O RDERABLES Final Result [facility] ([place]) 1 [facility] Department [place] [address] * Blood culture Blood Blood (10/25/2024 10:42 AM CDT) Report Final Report: No growth Comment:Testing performed by : [facility], 1 [facility] [place]., [address] Blood (Blood) 10/25/2024 10: 42 AM CDT [...] performance characteristics have been verified by the [facility]. For questions about this culture, contact the Microbiology Laboratory at [phone]. Interpretive data was last revised on 24. us Josue Cannon MD LAB MICROBIOLOGY - GENERAL O RDERABLES Final Result [facility] ([place]) 1 [facility] Department [place] [address] * CT Abdomen Pelvis W Contrast (10/25/2024 [...] Sakina Burns D.O. PS: PS Report ID: [id number] Reading Location: [place] [address] Procedure Note Sakina Burns, DO - 10/25/2024 EXAM DESCRIPTION: CT ABDOMEN [...] Sakina Burns D.O. PS: PS Report ID: [id number] Reading Location: [place] [address] us Josue Cannon MD IM CT PROCEDURES Final Resu lt * (ABNORMAL) Urinalysis reflex to microscopic and culture Urine (10/25/2024 9:03 AM CDT) Color, ur Yellow Yellow Clarity, ur Clear Clear [facility] ([facility]) Specific gravity, ur 1.017 1.003 - 1.030 [facility] ([facility]) pH, urine 5.5 [facility] ([facility]) Comment: Interpretive Data U rine pH is affected by diet, medications, systemic acid-base disturbances, and renal tubular function. pH may affect urinary stone formation. For example, urine pH below 6.0 may help reduce the tendency for calcium phosphate stones and pH greater than 6.0 may reduce the tendency for uric acid stone formation. Source: [facility] [employer] Current Interpretive Data was last revised on [...] GENERAL O RDERABLES Final Result [facility] ([place]) 1 [facility] Department [place] [address] * C. difficile testing Stool (10/25/2024 8:07 AM CDT) Pathologist [facility] Result Negative Negative Toxin Result Negative Negative [facility] ([facility]) C. diff result Negative, free toxin Negative, free toxin [facility] ([place]) C. diff interp Negative for toxigenic Clostridioides (Clostridium) difficile. Analysis was performed using a glutamate dehydrogenase antigen detection assay combined with a C. difficile toxin detection assay. [facility] ([place]) Stool 10/25/2024 8:07 AM CDT 10/25/2024 8:12 AM CDT Josue Cannon MD LAB MICROBIOLOGY - GENERAL O RDERABLES Final Result Performing Organization Address City/[facility]/ZIP Co de Phone Number [facility] ([place]) 1 [facility] [employer] [place] [place] [address] * (ABNORMAL) eGFR (10/25/2024 8:07 AM CDT) eGFR 43(L) >=60 mL/min/1. 73 m2 Comment: [...] BLOOD ORDERABLES Final R esult [facility] ([place]) 1 [facility] Department [place] [address] * (ABNORMAL) Differential, auto (10/25/2024 8:07 AM CDT) Neutrophil abs 15.1(H) 1.5 - 6.5 K/cumm Imm gran abs 0.1 0.0 - 0.1 K/cumm [facility] ([place]) Lymphocyte abs 1.3 0.8 - 3.3 K/cumm [...] Final R esult [facility] ([place]) 1 [facility] [place] [address] * (ABNORMAL) CBC with auto differential (10/25/2024 8:07 AM CDT) WBC 17.5(H) 3.8 - 9.9 K/cumm Hgb 14.0 11.9 - 15.5 g/dL [facility] ([facility]) Hct 41.2 35.6 - 45.5 % [facility] ([place]) Plt 364 150 - 400 K/cumm [facility] ([facility]) MPV 9.4 9.1 - 12.3 fL [facility] ([place]) RBC 4.54 3.90 - 5.20 M/cumm [facility] ([facility]) MCV 90.7 81.3 - 96.4 fL [facility] ([place]) MCH 30.8 27.1 - 33.3 pg [facility] ([facility]) MCHC 34.0 32.3 - 35.7 g/dL [facility] ([facility]) RDW CV 12.3 11.1 - 14.9 % [facility] ([facility]) RDW SD 41.1 35.7 - 48.1 fL [facility] ([place]) NRBC abs 0.00 0.00 - 0.01 K/cumm [facility] ([place]) Blood 10/25/2024 8:07 AM CDT 10/25/2024 8:12 AM CDT Josue Cannon MD LAB BLOOD ORDERABLES Final R esult [facility] ([place]) 1 [facility] Department [place] [address] * Stool culture Stool Rectum (10/25/2024 8:07 AM CDT) Pathologist [facility] Direct Specimen Exam Shiga Toxin Testing: Antigen detection assay for Shiga-toxin NEGATIVE for Shiga Toxin 1 and Shiga Toxin 2. Comment:Testing performed by : [facility], [address] [facility], [place]., [address] Report Final Report: No growth of enteric bacterial pathogens [facility] ([place]) Comment:Testing performed by : [facility], [address] [facility], [place]., [address] Stool (Rectum) 10/25/2024 8: 07 AM CDT 10/25/2024 11:43 AM CDT Narrative [facility] ([place]) - 10/30/2024 4:03 PM CDT Testing performed by [facility]biology [facility] ([phone]). Routine stool cultures include procedures to detect Salmonella, Shigella, Edwardsiella, Aeromonas, Pleisiomonas, Campylobacter, Yersinia, E. coli O157, and Shiga-like toxins. Vibrio is cultured only upon special request. If Vibrio is suspected, please call the laboratory at [phone]. Interpretive data was last updated December 18, 2016. Josue Cannon MD LAB MICROBIOLOGY - GENERAL O RDERABLES Final Result Performing Organization Address [facility] Co de Phone Number [facility] ([place]) 1 [facility] [place] [address] * Lipase (10/25/2024 8:07 AM CDT) Lipase 14 10 - 99 Units/L Blood 10/25/2024 8:07 AM CDT 10/25/2024 8:12 AM CDT Josue Cannon MD LAB BLOOD ORDERABLES Final R esult Performing Organization Address [facility] Co de Phone Number [place] ([facility]) 1 [facility] [address] [place] [address] * (ABNORMAL) Comprehensive metabolic panel (10/25/2024 8:07 AM CDT) Sodium 135 135 - 145 mmol/L Potassium, pl 3.3 3.3 - 4.9 mmol/L [facility] ([facility]) Chloride 98 97 - 110 mmol/L [facility] ([facility]) CO2 19(L) 22 - 32 mmol/L [facility] ([facility]) Anion gap 19(H) 2 - 15 [...] classification and Diagnosis of Diabetes Diabetes Care 202; 46: S19-S40. Current interpretive data was last [...] Final R esult [facility] ([facility]) 1 [facility] Department [place] [address] from Last 3 Months Insurance [employer] PPO [facility] ADVANTAGE CHOICE PPO Advance Directives For more information, please contact: [phone] * Full Code (Latest Code Status on File) Date Activated Date Inactivated Comments 10/25/2024 12:49 PM 10/28/2024 8:15 PM Care Teams Tower Erector Helper Relationship Specialty Start Date End Date Molly Poe NP [facility] [place] [address] PCP - General Nurse Practitioner 10/25/24
[2024-11-07 12:16] LABS: Hematocrit 38.1 % (37.0-47.0); Hemoglobin 12.6 g/dL (12.0-15.0); Mean Corpuscular HGB Conc 33.1 g/dl (32-36); Mean Corpuscular Hemoglobin 30.6 pg (26-34); Mean Corpuscular Volume 92.5 fl (80-100); Mean Platelet Volume 9.4 fl (7.4-10.4); Platelet Count Result 347 k/mm3 (150-375); Red Blood Count 4.12 M/mm3 (4.2-5.4); Red Cell Distribution Width 13.2 % (11.5-14.5); White Blood Count 23.4 K/mm3 (4.5-10.0)
[2024-11-07 12:32] VITALS: BP 117/59; PULSE 97; RESP 12
[2024-11-07 12:34] LABS: Alanine Aminotransferase 17 U/L (6-35); Albumin Level 4.1 g/dL (3.5-5.1); Alkaline Phosphatase 53 U/L (38-126); Anion Gap 11 mmol/L (4-12); Aspartate Amino Transferase 20 U/L (14-36); Bilirubin,Total 1.1 mg/dL (0.2-1.3); Blood Urea Nitrogen 24 mg/dL (7-17); Calcium 9.3 mg/dL (8.4-10.2); Carbon Dioxide 24 mmol/L (22-30); Chloride 100 mmol/L (98-107); Estimated CRCL calculation 29 ml/min; Estimated Glomerular Filt Rate 42; Glucose 106 mg/dL (65-110); Lipase 91 U/L (23-300); Potassium 3.5 mmol/L (3.4-5.0); Sodium 135 mmol/L (137-145)
[2024-11-07 12:41] LABS: Band Neutrophils Percent 6 % (0-6); Basophils Percent Manual 0 % (0-1); Eosinophils Percent Manual 0 % (0-4); Lymphocytes Absolute Manual 3.27 K/mm3 (1.1-4.5); Lymphocytes Percent Manual 14 % (18-44); Monocytes Absolute Manual 1.17 K/mm3 (0.1-0.90); Monocytes Percent Manual 5 % (3-9); Neutrophils Absolute Manual 18.95 K/mm3 (1.7-7.2); Neutrophils Percent Manual 75 % (46-73); Platelet Estimate Slightly Increased (Adequate); Total Cells Counted 100
[2024-11-07 12:42] LABS: Giant Platelets Present; Large Platelets Present
[2024-11-07 12:43] LABS: Schistocytes None Seen
[2024-11-07 13:13] LABS: Add Urine Microscopic? YES; Appearance Urine Cloudy (Clear); Bacteria Urine None Seen /hpf; Bilirubin Urine Negative (Negative); Blood Urine Negative (Negative); Color Urine Yellow (Yellow); Glucose Urine UA Negative (Negative); Ketones Urine Negative (Negative); Leukocyte Esterase Ur Negative LEU/UL (Negative); Nitrate Urine Negative (Negative); Protein Urine Negative (Negative); RBC Urine 0-2 /hpf (0-2); Specific Grav Ur 1.012 (1.001-1.035); Squamous Epithelial Cell Urine Moderate /hpf (Few); Urobilinogen Urine 0.2 mg/dL (<2.0); WBC Urine 0-5 /hpf (0-3); pH Urine 5.5 (5.0-9.0)
--- NOTE | 2024-11-07 13:23 | ED_ITS ---
HPI - Nausea/Vomiting/Diarrhea General Chief complaint: Nausea/Vomiting/Diarrhea Stated complaint: diarrhea, weakness recently dx with colitis Time Seen by Provider: 11/07/24 13:09 History of Present Illness HPI Narrative: 73-year-old female with a past medical history including COPD and hypertension as well as SMA stenosis. She presents to the emergency department today with concerns of profoundly loose watery stools for several days, lower abdominal pain. And generalized weakness. Patient states she was hospitalized at [facility] and was there from 10/25-10/28. At that time she had CT scans and findings of colitis. She found that she had a SMA stenosis of 70% and was referred to a vascular surgeon outpatient. She was evaluated by vascular during her hospital stay and they ruled out ischemic colitis per documentation. Patient did receive IV antibiotics during that time for colitis and was discharged home. She had a recent colonoscopy with Dr. Wooten that was unremarkable according to her. Today she presents with continuing loose watery stools and recurrence of lower abdominal pain. She states this feels very similar to when she was hospitalized. No fever chills. No back pain or chest pain. No epigastric discomfort or GERD like symptoms. No bloody diarrhea. Related Data Home Medications ?Medication ?Instructions ?Recorded ?Confirmed ?Last Taken ?Type albuterol sulfate 90 mcg/actuation 2 puff inhalation Q4H PRN 12/20/23 11/07/24 06/25/24 History aerosol inhaler (Ventolin HFA) shortness of breath or wheezing triamterene 37.5 1 tablet PO QAM 12/20/23 11/07/24 06/26/24 07:00 History mg-hydrochlorothiazide 25 mg tablet Allergies Allergy/AdvReac Type Severity Reaction Status Date / Time amlodipine Allergy Unknown Swelling Verified 11/04/24 08:57 denosumab (From Prolia) Allergy Unknown Unknown Verified 11/04/24 08:57 fluticasone furoate (From Allergy Unknown Unknown Verified 11/04/24 08:57 Trelegy Ellipta) nitrofurantoin Allergy Unknown Unknown Verified 11/04/24 08:57 umeclidinium (From Trelegy Allergy Unknown Unknown Verified 11/04/24 08:57 Ellipta) vilanterol (From Trelegy Allergy Unknown Unknown Verified 11/04/24 08:57 Ellipta) NITROFURANTOIN MACROCRYSTAL Allergy Unknown Unknown Uncoded 11/04/24 08:57 Review of Systems 2 Review of Systems: As reviewed above in HPI All systems reviewed & are unremarkable except as noted in HPI and below PMFSH Past Medical History Medical History (Updated 11/07/24 @ 21:28 by Glenn Cortez MD) Problematic consumption of alcohol Osteoporosis Superior mesenteric artery stenosis moderate stenosis SMA on CT 11/07/2024, followed by vascular Chronic obstructive pulmonary disease Arthritis Asthma Surgical History Surgical History (Updated 11/07/24 @ 21:06 by Kimberly Tirado PA-C) History of hysterectomy for benign disease History of colonoscopy with polypectomy History of tonsillectomy History of bilateral cataract extraction History of appendectomy Family History Family History Father Cancer Aneurysm Mother Cancer Sibling Cancer Aneurysm Social History Social History (Updated 11/07/24 @ 21:06 by Kimberly Tirado PA-C) Social History: Surrogate medical decision maker: Jhonathan Linares, spouse. Code status: Full code. Smoking packs per day: 0.75 Smoking cigarettes per day: 15.0 Years smoked: 47 Smoking pack-years: 35.25 Smoking status: Former smoker Alcohol intake: current Drinks per week: 35 Alcohol use details: rum or wine Substance use type: does not use Do You Feel Safe in your Home?: Yes Lack of Transportation: No Lack of Food: Never True Current Housing: I Have Housing Concerned About Future Housing: No Difficulty Paying Gas/Electric Bills: No Difficulty Paying for Meds: No Currently Unemployed: No Education: High School Diploma/GED Difficulty w/ Childcare or Family Care: No Living arrangements: with family Spiritual care concerns: No Agree to blood products: Yes Exam 2 Narrative: GENERAL: [Well-appearing, well-nourished, and in no acute distress.] HEAD: [Normocephalic, atraumatic.] EYES: [PERRLA and EOMI.] ENT: Nares clear, no rhinorrhea or epistaxis. Mucous membranes moist. NECK: Supple. CHEST: [Clear to auscultation. No respiratory distress.] HEART: [Regular rate and rhythm]. No murmur heard. [Normal peripheral pulses.] ABDOMEN: [Soft, nondistended], tender to palpation bilateral lower quadrants with no signs of peritonitis, [No rigidity or guarding] EXTREMITIES: Normal range of motion. [No edema.] SKIN: Warm, dry, no rash. NEURO: [No focal deficits]. Alert and oriented [x3.] PSYCH: [Normal mood and affect.] Course Vital Signs Vital signs: Vital Signs Temperature 36.8 C 11/07/24 11:16 Pulse Rate 110 H 11/07/24 11:16 Respiratory Rate 20 11/07/24 11:16 Blood Pressure 125/62 11/07/24 11:16 Pulse Oximetry 95 11/07/24 11:16 Oxygen Delivery Room Air 11/07/24 11:16 Temperature 36.5 C 11/07/24 20:21 Pulse Rate 90 11/07/24 20:21 Respiratory Rate 18 11/07/24 20:21 Blood Pressure 121/49 L 11/07/24 20:21 Pulse Oximetry 100 11/07/24 20:21 Oxygen Delivery Room Air 11/07/24 11:16 MDM - Nausea/Vomiting/Diarrhea MDM Narrative Medical decision making narrative: 73-year-old female presenting to the emergency department for loose watery stools and nonbloody diarrhea for several days. Recently diagnosed with pancolitis and admitted to [place] [id number]. Was evaluated by vascular surgery at that time for SMA stenosis and they ruled out ischemic colitis and gave her outpatient follow-up. Patient had recent colonoscopy with Dr. Wooten here at [place] that was unremarkable according to the patient. She has habit tender bilateral lower quadrant abdomen examination but no overlying skin changes or signs of peritonitis. Blood pressure 125/62, slightly tachycardic but she does appear dry and does have volume losses from diarrheal illness. No present nauseousness or vomiting. Suspicion currently is for potential inflammatory colitis versus infectious colitis versus less likely ischemic colitis. Low suspicion SMA syndrome, other intra-abdominal process such as diverticulitis or pancreatitis, appendicitis or also possible. She was given fluid resuscitation, Zofran and morphine for pain. CTA of the abdomen pelvis was ordered for assessment as well as lactic acid. Stool culture was C diff ordered given that she was recently on antibiotics and has a high white count here. Workup shows a leukocytosis of 23.4 1000, normal platelets, normal hemoglobin. Electrolytes largely unremarkable, she does have an BRANDEN likely from diarrheal illness and GI losses. Negative lactic acid 1.8. LFTs unremarkable. Normal lipase. Urinalysis shows no signs of infection. C difficile panel came back positive. CT scan shows pancolitis, moderate stenosis of SMA which patient is already aware of. Negative lactic acid this is not seem ischemic in nature. Spoke to Gastroenterology Dr. Ellsworth who recommended additional stool studies sent off and antibiotics with Flagyl and metronidazole and oral fidaxomicin was added by hospitalist. Discussed the case with the hospitalist team who accepted the patient to a medical-surgical bed at this time. Family members made aware and patient was comfortable with admission. Medical Records Attestation: I reviewed the patient's medical records. Lab Data Attestation: I reviewed the patient's lab results. 11/07/24 12:10 11/07/24 12:10 Labs: Lab Results 11/07/24 11/07/24 11/07/24 Range/Units 12:10 13:05 14:37 WBC 23.4 H (4.5-10.0) K/mm3 RBC 4.12 L (4.2-5.4) M/mm3 Hgb 12.6 (12.0-15.0) g/dL Hct 38.1 (37.0-47.0) % MCV 92.5 (80-100) fl MCH 30.6 (26-34) pg MCHC 33.1 (32-36) g/dl RDW 13.2 (11.5-14.5) % Plt Count 347 (150-375) k/mm3 MPV 9.4 (7.4-10.4) fl Immature Gran % (Auto) Not Reportable Neut % (Auto) Not Reportable Lymph % (Auto) Not Reportable [place] % (Auto) Not Reportable Eos % (Auto) Not Reportable Baso % (Auto) Not Reportable Lymph # (Auto) Not Reportable [place] # (Auto) Not Reportable Eos # (Auto) Not Reportable Baso # (Auto) Not Reportable Abs Immat Gran (auto) Not Reportable Absolute Neuts (auto) Not Reportable Absolute Nucleated RBC Not Reportable Total Counted 100 Neutrophils % (Manual) 75 H (46-73) % Band Neutrophils % 6 (0-6) % Lymphocytes % (Manual) 14 L (18-44) % Monocytes % (Manual) 5 (3-9) % Eosinophils % (Manual) 0 (0-4) % Basophils % (Manual) 0 (0-1) % Nucleated RBC % Not Reportable Abs Neuts (Manual) 18.95 H (1.7-7.2) K/mm3 Abs Lymphs (Manual) 3.27 (1.1-4.5) K/mm3 Abs Monocytes (Manual) 1.17 H (0.1-0.90) K/mm3 Absolute Eos (Manual) 0.00 L (0.02-0.50) K/mm3 Abs Basophils (Manual) 0.00 (0.0-0.1) K/mm3 Platelet Estimate Slightly increased (Adequate) Large Platelets Present Giant Platelets Present Schistocytes None seen Sodium 135 L (137-145) mmol/L Potassium 3.5 (3.4-5.0) mmol/L Chloride 100 (98-107) mmol/L Carbon Dioxide 24 (22-30) mmol/L Anion Gap 11 (4-12) mmol/L BUN 24 H (7-17) mg/dL Creatinine 1.26 H (0.7-1.0) mg/dL Estim Creat Clear Calc 29 ml/min Estimated GFR 42 L (59 - ) Glucose 106 (65-110) mg/dL Lactic Acid 1.8 (0.7-2.0) mmol/L Calcium 9.3 (8.4-10.2) mg/dL Total Bilirubin 1.1 (0.2-1.3) mg/dL AST 20 (14-36) U/L ALT 17 (6-35) U/L Alkaline Phosphatase 53 (38-126) U/L C-Reactive Protein 6.1 H (<1.0) mg/dL Total Protein 7.0 (6.3-8.2) g/dL Albumin 4.1 (3.5-5.1) g/dL Lipase 91 (23-300) U/L Urine Color Yellow (Yellow) Urine Appearance Cloudy H (Clear) Urine pH 5.5 (5.0-9.0) Ur Specific [place] 1.012 (1.001-1.035) Urine Protein Negative (Negative) mg/dL Urine Glucose (UA) Negative (Negative) mg/dL Urine Ketones Negative (Negative) mg/dL Ur Blood (Man) Negative (Negative) Urine Nitrate Negative (Negative) Urine Bilirubin Negative (Negative) Urine Urobilinogen 0.2 (<2.0) mg/dL Leukocyte Esterase Rfl Negative (Negative) SHELLIE/UL Urine RBC 0-2 (0-2) /hpf Urine WBC 0-5 (0-3) /hpf Ur Squamous Epith Cells Moderate (Few) /hpf Urine Bacteria None seen /hpf Urine Casts 3-5 Stool Calprotectin C. difficile (PCR) (NEGATIVE) 11/07/24 Range/Units 15:34 WBC (4.5-10.0) K/mm3 RBC (4.2-5.4) M/mm3 Hgb (12.0-15.0) g/dL Hct (37.0-47.0) % MCV (80-100) fl MCH (26-34) pg MCHC (32-36) g/dl RDW (11.5-14.5) % Plt Count (150-375) k/mm3 MPV (7.4-10.4) fl Immature Gran % (Auto) Neut % (Auto) Lymph % (Auto) [place] % (Auto) Eos % (Auto) Baso % (Auto) Lymph # (Auto) [place] # (Auto) Eos # (Auto) Baso # (Auto) Abs Immat Gran (auto) Absolute Neuts (auto) Absolute Nucleated RBC Total Counted Neutrophils % (Manual) (46-73) % Band Neutrophils % (0-6) % Lymphocytes % (Manual) (18-44) % Monocytes % (Manual) (3-9) % Eosinophils % (Manual) (0-4) % Basophils % (Manual) (0-1) % Nucleated RBC % Abs Neuts (Manual) (1.7-7.2) K/mm3 Abs Lymphs (Manual) (1.1-4.5) K/mm3 Abs Monocytes (Manual) (0.1-0.90) K/mm3 Absolute Eos (Manual) (0.02-0.50) K/mm3 Abs Basophils (Manual) (0.0-0.1) K/mm3 Platelet Estimate (Adequate) Large Platelets Giant Platelets Schistocytes Sodium (137-145) mmol/L Potassium (3.4-5.0) mmol/L Chloride (98-107) mmol/L Carbon Dioxide (22-30) mmol/L Anion Gap (4-12) mmol/L BUN (7-17) mg/dL Creatinine (0.7-1.0) mg/dL Estim Creat Clear Calc ml/min Estimated GFR (59 - ) Glucose (65-110) mg/dL Lactic Acid (0.7-2.0) mmol/L Calcium (8.4-10.2) mg/dL Total Bilirubin (0.2-1.3) mg/dL AST (14-36) U/L ALT (6-35) U/L Alkaline Phosphatase (38-126) U/L C-Reactive Protein (<1.0) mg/dL Total Protein (6.3-8.2) g/dL Albumin (3.5-5.1) g/dL Lipase (23-300) U/L Urine Color (Yellow) Urine Appearance (Clear) Urine pH (5.0-9.0) Ur Specific [place] (1.001-1.035) Urine Protein (Negative) mg/dL Urine Glucose (UA) (Negative) mg/dL Urine Ketones (Negative) mg/dL Ur Blood (Man) (Negative) Urine Nitrate (Negative) Urine Bilirubin (Negative) Urine Urobilinogen (<2.0) mg/dL Leukocyte Esterase Rfl (Negative) SHELLIE/UL Urine RBC (0-2) /hpf Urine WBC (0-3) /hpf Ur Squamous Epith Cells (Few) /hpf Urine Bacteria /hpf Urine Casts Stool Calprotectin Pending C. difficile (PCR) Positive A* (NEGATIVE) Imaging Data Attestation: I personally reviewed and interpreted this imaging study as follows: My impression: Impressions Abdomen/Pelvis CTA 11/07/24 13:57 IMPRESSION: 1. Pancolitis. 2. Moderate stenosis of superior mesenteric artery. Critical Care Time Critical Care Time Critical Care Time: Yes Total Critical Care Time: 35 Discharge Plan Discharge Clinical Impression: Pancolitis, C. difficile colitis, BRANDEN (acute kidney injury) Patient Disposition: Still a Patient Condition: Stable Time of Disposition: 21:28
[2024-11-07] MEDS: LACTATED RINGERS 1,000 ML 999 ML IV CONT (13:46)
--- OUTSIDE RECORDS SUMMARY | 2024-11-07 13:48 | XMS_ITS | Referral Summary ---
Author Organization [facility] Address [address] [place] [address] Care Team Providers Care Budget Consultant Name Role Phone Lui Molly KRISTINA Primary Care Provider [phone] Encounters Date Type Department Care Team Description 11/03/2024 [facility] Post Discharge Follow up phone call [address] [address] Kimber Butt RN 11/03/2024 [facility] Post Discharge Follow up phone call [address] [address] Ofe Chavira 10/25/2024 7:31 AM CDT - 10/28/2024 4:15 PM CDT Hospital Encounter [address] [address] Josue Cannno MD Nikolic, Jelena, MD Kheirkhahan, Nazanin, MD [...] Tobacco: Never Tobacco Cessation:Counseling Given: Not Answered [facility] Tailities Answer Date Recorded In the past 12 months has [employer], gas, oil, or water [employer] threatened to shut off services in your home? No 10/27/2024 Social Connection and Isolation Panel [NHANES] A nswer Date Recorded In a typical week, how many times do you talk on the phone with family, friends, or neighbors? Never 10/27/2024 How often do you get together with friends or re latives? Never 10/27/2024 How often do you attend restoration or methodist serv ices? Never 10/27/2024 Do you belong to any clubs o r organizations such as restoration groups, unions, fraternal or athletic groups, or [...] any time in the past 12 m [facility], were you homeless or living in a senior care (including now)? No 10/27/2024 Personal Safety Answer Date Recorded Have you ever been in or are you currently in a harmful physical or emotional relationship or is someone making you feel afraid or unsafe? 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[employer] Gender Identity Not on file Sexual Orientation [...] Hct 36.2 35.6 - 45.5 % [facility] ([place]) Blood 10/28/2024 12:4 5 PM CDT 10/28/2024 12:54 PM CDT Maribeth Arrington DO LAB BLOOD ORDERABLES Fin al Result Performing Organization Address City/[facility]/ZIP Co de Phone Number [facility] ([place]) 1 [facility] Department [place] [address] * eGFR (10/28/2024 5:27 AM CDT) eGFR [...] BLOOD ORDERABLES Final Res ult [facility] ([place]) 1 [facility] [place] [address] * Differential, auto (10/28/2024 5:27 AM CDT) Neutrophil abs 2.8 1.5 - 6.5 K/cumm Imm gran abs 0.0 0.0 - 0.1 K/cumm [facility] ([place]) Lymphocyte abs 1.8 0.8 - 3.3 [...] Final Res ult [facility] ([place]) 1 [facility] Department [place] [address] * (ABNORMAL) CBC with auto differential (10/28/2024 [...] Final Res ult [facility] ([place]) 1 [facility] Department [place] [address] * (ABNORMAL) Basic metabolic panel (10/28/2024 5:27 AM CDT) Sodium 140 135 - 145 mmol/L Potassium, pl 3.1(L) 3.3 - 4.9 mmol/L [facility] ([place]) Chloride 102 97 - 110 mmol/L [facility] ([place]) CO2 25 22 - 32 mmol/L [facility] ([place]) Anion gap 13 2 - 15 mmol/L [facility] ([place]) BUN 6 6 - 25 mg/dL [facility] ([place]) Creatinine 0.76 0.60 - 1.10 mg/dL [facility] ([place]) Glucose 89 70 - 199 mg/dL [facility] ([place]) Comment: Interpretive Data Fasting glucose [...] 2022. Calcium 8.0(L) 8.5 - 10.3 mg/dL [facility] ([place]) Blood 10/28/2024 5:27 AM CDT 10/28/2024 5:49 AM CDT us Mari Alvarez MD LAB BLOOD ORDERABLES Final Res ult [facility] ([place]) 1 [facility] [place] [address] * (ABNORMAL) Calcium, ionized, whole blood (10/27/2024 11:06 AM CDT) Ca, ionized, bld 4.21(L) 4.50 - 5.10 mg/dL Blood 10/27/2024 11:0 6 AM CDT 10/27/2024 11:12 AM CDT us Yvette Jacob MD LAB BLOOD ORDERABLES Socorro l Result [facility] 1 [facility] [place] [address] * eGFR (10/27/2024 11:06 AM CDT) eGFR [...] LAB BLOOD ORDERABLES Final Res ult [facility] ([place] 1 [facility] Department [place] [address] * Differential, auto (10/27/2024 11:06 AM CDT) [...] Final Res ult [facility] ([place]) 1 [facility] Department [place] [address] * CBC with auto differential (10/27/2024 11:06 [...] NRBC abs 0.00 0.00 - 0.01 K/cumm [facility] Blood 10/27/2024 11:0 6 AM CDT 10/27/2024 11:12 AM CDT us Mari Alvarez MD LAB BLOOD ORDERABLES Final Res ult [facility] 1 [facility] Department [place] [address] * (ABNORMAL) Basic metabolic panel (10/27/2024 11:06 AM CDT) Sodium 139 135 - 145 mmol/L Potassium, pl 3.3 3.3 - 4.9 mmol/L [facility] Chloride 99 97 - 110 mmol/L [facility] CO2 27 22 - 32 mmol/L [facility] ([place]) Anion gap 14 2 - 15 mmol/L [facility] ([place]) BUN 8 6 - 25 mg/dL [facility] ([place]) Creatinine 0.81 0.60 - 1.10 mg/dL [facility] ([place]) Glucose 98 70 - 199 mg/dL [facility] Comment: Interpretive Data Fasting glucose [...] 8.4(L) 8.5 - 10.3 mg/dL [facility] Blood 10/27/2024 11:0 6 AM CDT 10/27/2024 11:12 AM CDT Mari Alvarez MD LAB BLOOD ORDERABLES Final Res ult Performing Organization Address City/[facility]/ZIP Co de Phone Number [facility] 1 [facility] [place] [address] * Potassium (10/26/2024 2:01 PM CDT) Potassium, pl 3.7 3.3 - 4.9 mmol/L Blood 10/26/2024 2:01 PM CDT 10/26/2024 2:13 PM CDT Yvette Jacob MD LAB BLOOD ORDERABLES Socorro l Result Performing Organization Address City/[facility]/ZIP Co de Phone Number [facility] 1 [facility] [place] [place] [address] * Calcium, ionized, whole blood (10/26/2024 9:37 AM CDT) Ca, ionized, bld 4.59 4.50 - 5.10 mg/dL Blood 10/26/2024 9:37 AM CDT 10/26/2024 9:40 AM CDT Yvette Jacob MD LAB BLOOD ORDERABLES Socorro l Result Performing Organization Address City/[facility]/ZIP Co de Phone Number [facility] ([place] [address] [facility] [place] [place] [address] * Magnesium (10/26/2024 8:31 AM CDT) Magnesium 1.6 1.4 - 2.5 mg/dL Blood 10/26/2024 8:31 AM CDT 10/26/2024 8:43 AM CDT us Yvette Jacob MD LAB BLOOD ORDERABLES Socorro l Result Performing Organization Address [facility] Co de Phone Number [facility] ([place]) 1 [facility] [place] [address] * eGFR (10/26/2024 5:08 AM CDT) eGFR [...] Final Res ult [facility] ([place]) 1 [facility] Department [place] [address] * (ABNORMAL) Differential, auto (10/26/2024 5:08 AM [...] Final Res ult [facility] ([place] 1 [facility] Department [place] [address] * (ABNORMAL) CBC with auto differential (10/26/2024 [...] Final Res ult [facility] ([place]) 1 [facility] Department [place] [address] * (ABNORMAL) Basic metabolic panel (10/26/2024 5:08 AM CDT) Sodium 136 135 - 145 mmol/L Comment:breanna alejandro Potassium, pl 2.8(C) 3.3 - 4.9 mmol/L [facility] ([place]) Comment:Critical Result call ed by [email or web address] at 2024-10-26 07:08:16. Result Read Back by breanna alejandro Chloride 102 97 - 110 mmol/L [facility] ([place]) Comment:breanna alejandro CO2 15(L) 22 - 32 mmol/L [facility] ([place]) Comment:breanna alejandro Anion gap 20(H) 2 - 15 mmol/L [facility] ([place]) Comment:breanna alejandro BUN 18 6 - 25 mg/dL [facility] ([place]) Comment:breanna alejandro Creatinine 0.96 0.60 - 1.10 mg/dL [facility] ([place]) Comment:breanna alejandro Glucose 61(L) 70 - 199 mg/dL [facility] ([place]) Comment: breanna alejandro Interpretive Data Fasting [...] Calcium 8.0(L) 8.5 - 10.3 mg/dL [facility] ([place]) Comment:breanna alejandro Blood 10/26/2024 5:08 AM CDT 10/26/2024 6:03 AM CDT us Mari Alvarez MD LAB BLOOD ORDERABLES Final Res ult [facility] ([place] 1 [facility] Department [place] [place] [address] * Sepsis Lactate w/ Reflex (10/25/2024 12:00 PM CDT) Sepsis Lactate 1.3 0.7 - 2.0 mmol/L Blood 10/25/2024 12:0 0 PM CDT 10/25/2024 12:03 PM CDT us Josue Cannon MD LAB BLOOD ORDERABLES Final R esult Performing Organization Address City/[facility]/ZIP Co de Phone Number [facility] ([place]) [address] [place] [address] * Blood culture Blood Blood (10/25/2024 10:42 AM CDT) Report Final Report: No growth Comment:Testing performed by : [facility], [address] [place]., [address] Blood (Blood) 10/25/2024 10: 42 AM CDT 10/25/2024 4:22 PM CDT Narrative [facility] ([place]) - 10/30/2024 7:00 AM CDT Collection->Peripheral 1. [...] performance characteristics have been verified by the [facility]. For questions about this culture, contact the Microbiology Laboratory at [phone]. Interpretive data was last revised on 24. Josue Cannon MD LAB MICROBIOLOGY - GENERAL O RDERABLES Final Result [facility] ([place]) 1 [facility] Department [place] [address] * Blood culture Blood Blood (10/25/2024 10:42 AM CDT) Report Final Report: No growth Comment:Testing performed by : [facility], 1 [place]., [address] Blood (Blood) 10/25/2024 10: 42 AM CDT [...] performance characteristics have been verified by the [facility]. For questions about this culture, contact the Microbiology Laboratory at [phone]. Interpretive data was last revised on 24. us Josue Cannon MD LAB MICROBIOLOGY - GENERAL O RDERABLES Final Result [facility] [place] 1 [facility] Department [place] [address] * CT Abdomen Pelvis W Contrast (10/25/2024 [...] Sakina Burns D.O. PS: PS Report ID: [id number] Reading Location: [id number] Procedure Note Sakina Burns DO - 10/25/2024 [...] Sakina Burns D.O. PS: PS Report ID: [id number] Reading Location: [place] [address] Josue Cannon MD IMG CT PROCEDURES Final [...] for uric acid stone formation. Source: [employer] Current Interpretive Data was last revised on [...] O RDERABLES Final Result Performing Organization Address City/[facility] Co de Phone Number [facility] ([place]) [address] [place] [address] * C. difficile testing Stool (10/25/2024 8:07 AM CDT) [facility] Result Negative Negative Toxin Result Negative Negative [facility] C. diff result Negative, free toxin Negative, free toxin [facility] ([place]) C. diff interp Negative for toxigenic Clostridioides (Clostridium) difficile. Analysis was performed using a glutamate dehydrogenase antigen detection assay combined with a C. difficile toxin detection assay. [facility] ([place]) Stool 10/25/2024 8:07 AM CDT 10/25/2024 8:12 AM CDT Josue Cannon MD LAB MICROBIOLOGY - GENERAL O RDERABLES Final Result Performing Organization Address City/[facility]/ZIP Co de Phone Number [facility] ([place]) 1 [facility] [place] [place] [address] * (ABNORMAL) eGFR (10/25/2024 8:07 AM CDT) Pathologist [facility] eGFR 43(L) >=60 mL/min/1. 73 m2 Comment: [...] MD LAB BLOOD ORDERABLES Final R esult [facility] 1 [facility] Department [place] [address] * (ABNORMAL) Differential, auto (10/25/2024 8:07 AM [...] Final R esult [facility] ([place]) 1 [facility] Department of Laboratories [place], [place] [address] * (ABNORMAL) CBC with auto differential (10/25/2024 8:07 AM CDT) WBC 17.5(H) 3.8 - 9.9 K/cumm Hgb 14.0 11.9 - 15.5 g/dL [facility] ([place]) Hct 41.2 35.6 - 45.5 % [facility] ([place]) Plt 364 150 - 400 K/cumm [facility] ([place]) MPV 9.4 9.1 - 12.3 fL [facility] ([place]) RBC 4.54 3.90 - 5.20 M/cumm [facility] ([place]) MCV 90.7 81.3 - 96.4 fL [facility] ([place]) MCH 30.8 27.1 - 33.3 pg [facility] ([place]) MCHC 34.0 32.3 - 35.7 g/dL [facility] ([place]) RDW CV 12.3 11.1 - 14.9 % [facility] ([place]) RDW SD 41.1 35.7 - 48.1 fL [facility] ([place]) NRBC abs 0.00 0.00 - 0.01 K/cumm [facility] ([place]) Blood 10/25/2024 8:07 AM CDT 10/25/2024 8:12 AM CDT Josue Cannon MD LAB BLOOD ORDERABLES Final R esult Performing Organization Address [facility] Co de Phone Number [facility] ([place]) 1 [facility] [place] [address] * Stool culture Stool Rectum (10/25/2024 8:07 AM CDT) Direct Specimen Exam Shiga Toxin Testing: Antigen detection assay for Shiga-toxin NEGATIVE for Shiga Toxin 1 and Shiga Toxin 2. Comment:Testing performed by : [facility], [address] [place]., [address] Report Final Report: No growth of enteric bacterial pathogens [facility] ([place]) Comment:Testing performed by : [facility], [address] [place] [address]., [id number] Stool (Rectum) 10/25/2024 8: 07 AM CDT 10/25/2024 11:43 AM CDT Narrative [facility] ([place]) - 10/30/2024 4:03 PM CDT Testing performed by [facility] ([phone]). Routine stool cultures include procedures to detect Salmonella, Shigella, Edwardsiella, Aeromonas, Pleisiomonas, Campylobacter, Yersinia, E. coli O157, and Shiga-like toxins. Vibrio is cultured only upon special request. If Vibrio is suspected, please call the laboratory at [phone]. Interpretive data was last updated December 18, 2016. Josue Cannon MD LAB MICROBIOLOGY - GENERAL O RDERABLES Final Result Performing Organization Address [facility]/State/ZIP Co de Phone Number [facility] ([place]) 1 [facility] Department [place] [address] * Lipase (10/25/2024 8:07 AM CDT) Lipase 14 10 - 99 Units/L Blood 10/25/2024 8:07 AM CDT 10/25/2024 8:12 AM CDT Josue Cannon MD LAB BLOOD ORDERABLES Final R esult [facility] ([place]) 1 [facility] [place] [address] * (ABNORMAL) Comprehensive metabolic panel (10/25/2024 8:07 [...] Final R esult [facility] ([place]) 1 [facility] [place] [address] from Last 3 Months Insurance [employer] [place] [id number] Advance Directives For more information, please contact: [phone] * Full Code (Latest Code Status on File) Date Activated Date Inactivated Comments 10/25/2024 12:49 PM 10/28/2024 8:15 PM Care Teams Budget Consultant Relationship Specialty Start Date End Date Molly Poe NP [facility] [place] [address] PCP - General Nurse Practitioner 10/25/24
--- OUTSIDE RECORDS SUMMARY | 2024-11-07 13:48 | XMS_ITS | CONTINUITY OF CARE DOCUMENT ---
Author Name zaria enciso Address Unknown Organization [facility] Address [address] [facility] [place] [address] Phone [phone] Care Team Providers Care Creative Resource Manager Name Role Phone Nicko DODGE, Chito Unavailable [phone] TIMUR BANDA Unavailable TIMUR BANDA Unavailable [phone] PROBLEMS Condition Status Date Provider Notes Abnormal electrocardiogram active Olga cohen TOBACCO ABUSE QUIT active Chito Maharaj MD Hyperlipidemia active Chito Maharaj MD Essential Hypertension-nml s tress nuc and echo active Chito Maharaj MD Claudication active Chito Maharaj MD COPD active Chito Maharaj MD Cardiology examination completed 7 - Chito Maharaj MD ENCOUNTERS Date Type Provider Location Encounter Diag nosis - In-person encounter Office Visit Chito Maharaj MD [facility] Cardiology examinationEssential Hypertension-nml stress nuc and echo - In-person encounter Office Visit Chito Maharaj MD [facility] COPDClaudicationEssential Hypertension-nml stress nuc and echoHyperlipidemiaTOBACCO ABUSE QUIT VITAL SIGNS Date Observation Value Provider Body Mass Index (Ratio) 24.87 kg/m2 Tenzin Maharaj MD blood pressure, diastolic 80 mm[Hg] Jonas [place] blood pressure, systolic 138 mm[Hg] Sweta [place] oxygen saturation, oximetry 97 % Jaylin [place] respiratory rate E&M 16 /min Jaylin [place] pulse rate 68 /min [place] weight E&M 136 [lb_av] Jaylin [place] blood pressure, resting Yes Kaylah painter [place] height E&M 62 [in_i] Jaylin [place] Body Mass Index (Ratio) 23.96 kg/m2 Tenzin [...] of grandchildren Chito Maharaj MD K yimi [place] smoking, year quit 2018 Jyalin Hannah ngregina smoking history, total pack/day 1/2 PPD [facility] cigarette use yes Jaylin [place] smoking status [...] Payer name Policy type / Coverage type [place] red constitution party ID [employer] [facility] Other [id number] ADVANCE DIRECTIVES Name Date DISCUSSED - NO [...]
--- OUTSIDE RECORDS SUMMARY | 2024-11-07 13:48 | XMS_ITS | Encounter Summary ---
Author Organization [facility] Address [address] [place] [address] Care Team Providers Care Truss Designer Name Role Phone Ting SumnerNP Primary Care Provider [phone] Daphne Ruiz RN Unavailable Molly Poe NP Primary Care Provider [phone] Encounter Details Date Type Department Care Team (Late st Contact Info) Description 02/07/2023 MyChart Message Enc [facility] [address] [place], [place] [address] [facility] Provider Air Quality Message Social History Tobacco [...] CDT Gender Identity Female 10/06/2021 5:18 AM [facility] Sexual Orientation Not on file COVID-19 Exposure [...] Description 11/26/2024 11:30 AM CDT Office Visit [facility] [address] [place] [address] Danish Guzman MD [facility] [address] [place] [address] documented as of this encounter Visit Diagnoses Not on filedocumented in this encounter Additional Health Concerns Assessment Noted Time PHQ-9 Depression Total Score: 0 10/19/19 22 9:18 AM [facility] documented as of this encounter Care Teams Truss Designer Relationship Specialty Start Date End Date Ting Sumner APNP [address] [place] [address] PCP - General NURSE PRACTITIONER 02/26/20 10/28/24 Molly Poe NP [address] [place] [address] PCP - General NURSE PRACTITIONER 10/29/24 Daphne Ruiz, RN [address] [place] [address] Motion Picture Camera Lens Technician (Ambulatory) REGISTERED NURSE 10/28/24 10/28/24 documented as of this encounter
--- OUTSIDE RECORDS SUMMARY | 2024-11-07 13:48 | XMS_ITS | Clinical Summary ---
Author Organization [facility] Address [facility] [place] [address] Care Team Providers Care Facilities Technician Name Role Phone Lui Molly KRISTINA Primary Care Provider [phone] Allergies Active Allergy Reactions Criticality Noted Date [...] 11/18/2020 Depressive disorder 11/18/2020 Cataract 11/18/2020 Asthma ([facility]) 11/18/2020 Anxiety 11/18/2020 Mixed hyperlipidemia 10/05/2020 COPD (chronic obstructive pu lmonary disease) ([facility]) 02/26/2020 Hypertension 02/26/2020 Chronic neck pain 02/26/2020 Abnormal electrocardiogram 02/18/2019 Osteoporosis 11/12/2017 Cervical disc disorder 11/15/2012 Resolved Problems Problem Noted Date Diagnosed Date Resolved Date Noninfected skin tear of lef t lower extremity, initial encounter 11/22/2020 11/09/2023 Peripheral vascular disease 02/25/2019 10/18/2021 Claudication 01/27/2019 10/18/2021 Nicotine dependence, unspeci fied, uncomplicated 01/27/2019 10/18/2021 Encounters Date Type Department Care Team Description 10/29/2024 Patient Outreach [facility] Family & Internal [address] [id number] Daphne Ruiz RN Hospital Follow Up 10/28/2024 Patient Outreach [facility] Internal [address] [address] Daphne Ruiz RN Hospital Follow Up 10/25/2024 Scan [facility] INFO SRVCS Scanned, Doc Med Group from Last 3 Months Immunizations Name Administration Dates Next Due Fluzone High Dose - >Age 65 (Prefilled Syringe) 04/24/2018 Influenza (Generic) 06/02/2016,06/10/2015,2013 Influenza Adult (Generic) 10/12/2021(Def erred: Patient Refused),04/24/2018,06/06/2017,06/06/20 17,06/02/2016,06/10/2015,05/28/2014 Pneumococcal (Generic) 06/11/2006 Pneumococcal (Pneumovax 23) 04/24/2018 Pneumococcal (Prevnar 13) 06/12/2019 Tdap (Generic) 11/17/2013 Zoster (Zostavax) 10817 Unt/0.65Ml 11/17/2013 Family History Medical History Relation [...] CDT Gender Identity Female 10/06/2021 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 [address] [place] [id number] Danish Guzman MD [address] [address] Health Maintenance Due Date Last [...] 04/24/2018, 06/06/2017, Additional history exists PHQ-2 (Physician [place]) 08/13/2024 11/09/2023 Colorectal Cancer Screening FIT-DNA (3 [...] ([facility] ONLY) (11/09/2023 8:38 AM CDT) Pathologist [facility] HEPATITIS C AB NON-REACTI VE NON-REACT SUDHA 11/09/2023 7:03 PM CDT [facility] Comment: ANTIBODIES TO HCV NOT DETECTED. DOES NOT EXCLUDE THE POSSIBILITY OF EXPOSURE TO HCV. 11/09/2023 8:38 AM CDT us [facility] Final Resul t [facility] [address] [place] [address], [place] [phone] [id number] * MAMMOGRAM GENERIC (SCAN ORDER) (10/24/2023) Anatomical Region Laterality Modality Other 10/24/2023 us Doc Med Group Scanned SCANNING Final Resu lt * BONE DENSITY GENERIC (01/11/2022) Anatomical Region Laterality Modality Other 01/11/2022 Narrative 01/11/2022 Ordered by an unspecified provider. us Documents Scanned SCANNING Final Result * COLOGUARD (EXACT SCIENCE) (10/24/2021 8:30 AM CDT) Pathologist [facility] COLOGUARD RESULT Negative Negative Green Clean (CLIA #:[id number]) Comment: NEGATIVE TEST RESULT. A negative Cologuard [...] colonoscopy. (Awa Ford, N Engl J Med 2014;370(14):7797-1761) The normal value (reference range) for this assay is negative. COLOGUARD RE-SCREENING RECOMMENDATION: Periodic colorectal cancer screening is an important part of preventive healthcare for asymptomatic individuals at average risk for colorectal cancer. Following a negative Cologuard result, the [place] Cancer Society and U.S. Multi-Society Task Force screening guidelines recommend a Cologuard re-screening interval of 3 years. References: [place] [employer] Guideline for Colorectal Cancer Screening: https://www.cancer.org/cancer/inluz-hlleus-qtvcux/mjqxbozti-joxndnnbn-nccvnnl/ac s-rec ommendations.html.; James DK, Mark CR, Jennifer VillagranK, Colorectal Cancer Screening: Recommendations for Physicians and Patients from the U.S. Multi-Society Task Force on Colorectal Cancer Screening , Am J Gastroenterology 2017; 112:0919-2069. TEST DESCRIPTION: Composite algorithmic analysis of stool [...] colonoscopy. (Awa Ford, N Engl J Med 2014;370(14):0259-5542.) Cologuard may produce a false negative or false positive result (no colorectal cancer or precancerous polyp present at colonoscopy follow up). A negative Cologuard test result does not guarantee the absence of CRC or advanced adenoma (pre-cancer). The current Cologuard screening interval is every 3 years. ([place] Cancer Society and U.S. Multi-Society Task Force). Cologuard performance data in a 10,000 patient pivotal study using colonoscopy as the reference method can be accessed at the following location: www.[employer].com/results. Additional description of the Cologuard test process, warnings and precautions can be found at www.cologuard.com. STOOL STOOL SPECIMEN / Unknown 10/24/2021 8:30 AM CDT 10/25/2021 12:18 PM CDT Ting [facility] BODY FLUIDS AND STOOLS JOSEE CARTWRIGHT Final Result [employer] ([employer] [address] LAB) [address] [place] [address], [employer] (CLIA #:[id number]) [address] [email or web address] [address] * COLONOSCOPY GENERIC (01/15/2014) 01/15/2014 Narrative 01/15/2014 Ordered by an unspecified provider. us Documents Scanned SCANNING Final Result from Last 3 Months or Most Recently Relevant to Health Maintenance Insurance [employer] Care Teams Facilities Technician Relationship Specialty Start Date End Date Molly Poe NP [address] [place] [address] PCP - General NURSE PRACTITIONER 10/29/24
--- OUTSIDE RECORDS SUMMARY | 2024-11-07 13:48 | XMS_ITS | Clinical Summary ---
Author Organization [facility] Address [address] [place] [address] Care Team Providers Care Affiliate Marketing Specialist Name Role Phone Molly Poe NP Primary Care Provider [phone] Allergies Active Allergy Reactions Criticality Noted Date [...] Date Type Department Care Team Description 11/03/2024 [facility] Post Discharge Follow up phone call [facility] [address] [place] [address] Kimber Butt RN 11/03/2024 [facility] Post Discharge Follow up phone call [facility] [address] [place] [address] Ofe Chavira 10/25/2024 7:31 AM CDT - 10/28/2024 4:15 PM CDT Hospital Encounter [facility] [address] [place] [address] Josue Cannon MD Nikolic, Jelena, MD Kheirkhahan, Nazanin, MD Fasick, Victoria Rose, Colitis (Primary Dx); Diarrhea of presumed infectious origin; Lower abdominal pain Discharge Disposition: Discharge to home or self care from Last 3 Months Social History Tobacco Use Types Packs/Day Years Used Date Smoking Tobacco: Former Cigarettes Smokeless Tobacco: Never Tobacco Cessation:Counseling Given: Not Answered [facility] Utilities Answer Date Recorded In the past 12 months has [employer] electric, gas, oil, or water company threatened [...] Never 10/27/2024 How often do you attend lutheran or latter day serv ices? Never 10/27/2024 Do you belong to any clubs o r organizations such as lutheran groups, unions, fraternal or athletic groups, or [...] any time in the past 12 [facility], were you homeless or living in a mcc (including now)? No 10/27/2024 Personal Safety Answer Date Recorded Have you ever been in or are you currently in a harmful physical or emotional relationship or is someone making you feel afraid or unsafe? 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 Gender Identity Not on file Sexual Orientation [...] Fin al Result [facility] ([facility]) 1 [facility] Department [place] [address] * eGFR (10/28/2024 5:27 AM [...] Final Res ult [facility] ([place]) 1 [facility] [place] [address] * Differential, auto (10/28/2024 5:27 AM CDT) [...] Eosinophil pct 3.7 % [facility] ([facility]) Comment: Interpretive Data Percent cell count reference [...] Final Res ult [facility] ([facility]) 1 [facility] Department [place] [address] * (ABNORMAL) CBC with auto differential (10/28/2024 [...] Res ult [facility] ([place]) 1 [facility] Department [place] [address] * (ABNORMAL) Basic metabolic panel (10/28/2024 5:27 [...] BLOOD ORDERABLES Final Res ult [facility] ([place]) [address] [place] [address] [place] [address] * (ABNORMAL) Calcium, ionized, whole blood (10/27/2024 11:06 AM CDT) Ca, ionized, bld 4.21(L) 4.50 - 5.10 mg/dL Blood 10/27/2024 11:0 6 AM CDT 10/27/2024 11:12 AM CDT us Yvette Jacob MD LAB BLOOD ORDERABLES Socorro l Result Performing Organization Address [facility] Co de Phone Number [facility] ([place]) 1 [facility] [place] [address] * eGFR (10/27/2024 11:06 AM CDT) eGFR [...] BLOOD ORDERABLES Final Res ult [facility] ([place]) 1 [facility] Department [place] [address] * Differential, auto (10/27/2024 11:06 AM CDT) Neutrophil abs 5.4 1.5 - 6.5 K/cumm Imm gran abs 0.0 0.0 - 0.1 K/cumm [facility] ([place]) Lymphocyte abs 1.7 0.8 - 3.3 K/cumm [facility] ([place]) Monocyte abs 0.5 0.2 - 0.8 K/cumm [facility] ([place]) Eosinophil abs 0.1 0.0 - 0.5 K/cumm [facility] ([place]) Basophil abs 0.0 0.0 - 0.1 K/cumm [facility] ([place]) Neutrophil pct 69.3 % [facility] ([place]) Comment: Interpretive Data Percent cell count reference ranges are not reported, since discordance with absolute values may lead to misinterpretation of CBC data. Current Interpretive Data was last revised on 2017. Imm gran pct 0.3 % [facility] ([place]) Comment: Interpretive Data Percent cell count reference ranges are not reported, since discordance with absolute values may lead to misinterpretation of CBC data. Current Interpretive Data was last revised on 2017. Lymphocyte pct 22.2 % [facility] ([place]) Comment: Interpretive Data Percent cell count reference ranges are not reported, since discordance with absolute values may lead to misinterpretation of CBC data. Current Interpretive Data was last revised on 2017. Monocyte pct 6.6 % [facility] ([place]) Comment: Interpretive Data Percent cell count reference ranges are not reported, since discordance with absolute values may lead to misinterpretation of CBC data. Current Interpretive Data was last revised on 2017. Eosinophil pct 1.3 % [facility] ([place]) Comment: Interpretive Data Percent cell count reference [...] Res ult [facility] ([place]) 1 [facility] Department [place] [address] * CBC with auto differential (10/27/2024 11:06 [...] Final Res ult [facility] ([place]) 1 [facility] [place] [place] [address] * (ABNORMAL) Basic metabolic panel (10/27/2024 11:06 [...] 2022. Calcium 8.4(L) 8.5 - 10.3 mg/dL [facility] ([place]) Blood 10/27/2024 11:0 6 AM CDT 10/27/2024 11:12 AM CDT Mari Alvarez MD LAB BLOOD ORDERABLES Final Res ult [facility] ([place]) 1 [facility] Department [place] [address] * Potassium (10/26/2024 2:01 PM CDT) Potassium, pl 3.7 3.3 - 4.9 mmol/L Blood 10/26/2024 2:01 PM CDT 10/26/2024 2:13 PM CDT Yvette Jacob MD LAB BLOOD ORDERABLES Socorro l Result [facility] ([place]) 1 [facility] [place] [address] * Calcium, ionized, whole blood (10/26/2024 9:37 AM CDT) [facility] Ca, ionized, bld 4.59 4.50 - 5.10 mg/dL Blood 10/26/2024 9:37 AM CDT 10/26/2024 9:40 AM CDT Yvette Jacob MD LAB BLOOD ORDERABLES Socorro l Result [facility] ([place]) 1 [facility] [place] [address] * Magnesium (10/26/2024 8:31 AM CDT) [facility] Magnesium 1.6 1.4 - 2.5 mg/dL Blood 10/26/2024 8:31 AM CDT 10/26/2024 8:43 AM CDT Yvette Jacob MD LAB BLOOD ORDERABLES Socorro l Result [facility] ([place]) 1 [facility] [place] [address] * eGFR (10/26/2024 5:08 AM CDT) [facility] eGFR 63 >=60 mL/min/1. 73 m2 [...] MD LAB BLOOD ORDERABLES Final Res ult [facility] ([place]) 1 [facility] Department [place] [address] * (ABNORMAL) Differential, auto (10/26/2024 5:08 AM [...] BLOOD ORDERABLES Final Res ult [facility] ([place]) 1 [facility] Department [place] [address] * (ABNORMAL) CBC with auto differential (10/26/2024 5:08 AM CDT) WBC 9.0 3.8 - 9.9 K/cumm Hgb 11.4(L) 11.9 - 15.5 g/dL [facility] ([place]) Hct 34.6(L) 35.6 - 45.5 % [facility] ([place]) Plt 266 150 - 400 K/cumm [facility] ([place]) MPV 9.7 9.1 - 12.3 fL [facility] ([place]) RBC 3.74(L) 3.90 - 5.20 M/cumm [facility] ([place]) MCV 92.5 81.3 - 96.4 fL [facility] ([place]) MCH 30.5 27.1 - 33.3 pg [facility] ([place]) MCHC 32.9 32.3 - 35.7 g/dL [facility] ([place]) RDW CV 12.5 11.1 - 14.9 % [facility] ([place]) RDW SD 42.7 35.7 - 48.1 fL [facility] ([place]) NRBC abs 0.00 0.00 - 0.01 K/cumm [facility] ([place]) Blood 10/26/2024 5:08 AM CDT 10/26/2024 6:03 AM CDT us Mari Alvarez MD LAB BLOOD ORDERABLES Final Res ult [facility] ([place]) 1 [facility] Department [place] [address] * (ABNORMAL) Basic metabolic panel (10/26/2024 5:08 AM CDT) Sodium 136 135 - 145 mmol/L Comment:breanna alejandro Potassium, pl 2.8(C) 3.3 - 4.9 mmol/L [facility] ([place]) Comment:Critical Result call ed by [email or web address] at 2024-10-26 07:08:16. Result Read Back by breanna bacon mcu Chloride 102 97 - 110 mmol/L [facility] ([place]) Comment:breanna bacon mcu CO2 15(L) 22 - 32 mmol/L [facility] ([place]) Comment:breanna alejandro Anion gap 20(H) 2 - 15 mmol/L [facility] ([facility]) Comment:breanna bacon mcu BUN 18 6 - 25 mg/dL [facility] ([place]) Comment:breanna bacon mcu Creatinine 0.96 0.60 - 1.10 mg/dL [facility] ([place]) Comment:breanna bakeroln [facility] Glucose 61(L) 70 - 199 mg/dL [facility] ([place]) Comment: otonieleliazar jordi [facility] Interpretive Data Fasting glucose >/= 126 mg/dl [...] Calcium 8.0(L) 8.5 - 10.3 mg/dL [facility] ([place]) Comment:otonielwsetleysavannah bacon [facility] Blood 10/26/2024 5:08 AM CDT 10/26/2024 6:03 AM CDT us Mari Alvarez MD LAB BLOOD ORDERABLES Final Res ult [facility] ([place]) 1 [facility] [place] [address] * Sepsis Lactate w/ Reflex (10/25/2024 12:00 PM CDT) Sepsis Lactate 1.3 0.7 - 2.0 mmol/L Blood 10/25/2024 12:0 0 PM CDT 10/25/2024 12:03 PM CDT us Josue Cannon MD LAB BLOOD ORDERABLES Final R esult [facility] ([place]) 1 [facility] [place] [place] [address] * Blood culture Blood Blood (10/25/2024 10:42 AM CDT) Report Final Report: No growth Comment:Testing performed by : [facility], [address] [place]., [address] Blood (Blood) 10/25/2024 10: 42 AM CDT [...] performance characteristics have been verified by the [facility] Microbiology Laboratory. For questions about this culture, contact the Microbiology Laboratory at [phone]. Interpretive data was last revised on 24. Josue Cannon MD LAB MICROBIOLOGY - GENERAL O RDERABLES Final Result [facility] ([place]) 1 [facility] Department [place] [address] * Blood culture Blood Blood (10/25/2024 10:42 AM CDT) Report Final Report: No growth Comment:Testing performed by : [facility], 1 [facility] [place]., [address] Blood (Blood) 10/25/2024 10: 42 AM CDT [...] performance characteristics have been verified by the [facility] Microbiology Laboratory. For questions about this culture, contact the Microbiology Laboratory at [phone]. Interpretive data was last revised on 24. us Josue Cannon MD LAB MICROBIOLOGY - GENERAL O RDERABLES Final Result [facility] ([place]) 1 [facility] Department [place] [address] * CT Abdomen Pelvis W Contrast (10/25/2024 [...] Sakina Burns D.O. PS: PS Report ID: [id number] Reading Location: [place] [address] Procedure Note Sakina Burns, DO - 10/25/2024 [...] Sakina Burns D.O. PS: PS Report ID: [id number] Reading Location: [place] [address] us Josue Cannon MD IM CT PROCEDURES [...] tendency for uric acid stone formation. Source: [facility] [employer] Current Interpretive Data was last revised on [...] RDERABLES Final Result [facility] ([place]) 1 [facility] Department [place] [address] * C. difficile testing Stool (10/25/2024 8:07 AM CDT) Pathologist [facility] Result Negative Negative Toxin Result Negative Negative [...] O RDERABLES Final Result Performing Organization Address City/[facility]/ZIP Co de Phone Number [facility] ([place]) 1 [facility] [employer] [place] [address] * (ABNORMAL) eGFR (10/25/2024 8:07 AM CDT) [...] BLOOD ORDERABLES Final R esult [facility] ([place]) 1 [facility] Department [place] [address] * (ABNORMAL) Differential, auto (10/25/2024 8:07 AM CDT) Neutrophil abs 15.1(H) 1.5 - 6.5 K/cumm Imm gran abs 0.1 0.0 - 0.1 K/cumm [facility] ([place]) Lymphocyte abs 1.3 0.8 - 3.3 K/cumm [...] Final R esult [facility] ([place]) 1 [facility] [place] [address] * (ABNORMAL) CBC with auto differential (10/25/2024 8:07 AM CDT) WBC 17.5(H) 3.8 - 9.9 K/cumm Hgb 14.0 11.9 - 15.5 g/dL [facility] ([place]) Hct 41.2 35.6 - 45.5 % [facility] ([place]) Plt 364 150 - 400 K/cumm [facility] ([place]) MPV 9.4 9.1 - 12.3 fL [facility] ([place]) RBC 4.54 3.90 - 5.20 M/cumm [facility] ([place]) MCV 90.7 81.3 - 96.4 fL [facility] ([place]) MCH 30.8 27.1 - 33.3 pg [facility] ([place]) MCHC 34.0 32.3 - 35.7 g/dL [facility] ([place]) RDW CV 12.3 11.1 - 14.9 % [facility] ([place]) RDW SD 41.1 35.7 - 48.1 fL [facility] ([place]) NRBC abs 0.00 0.00 - 0.01 K/cumm [facility] ([place]) Blood 10/25/2024 8:07 AM CDT 10/25/2024 8:12 AM CDT Josue Cannon MD LAB BLOOD ORDERABLES Final R esult [facility] ([place]) 1 [facility] Department [place] [address] * Stool culture Stool Rectum (10/25/2024 8:07 AM CDT) Pathologist [facility] Direct Specimen Exam Shiga Toxin Testing: Antigen detection assay for Shiga-toxin NEGATIVE for Shiga Toxin 1 and Shiga Toxin 2. Comment:Testing performed by : [facility], 1 [facility], [place]., [address] Report Final Report: No growth of enteric bacterial pathogens [facility] ([place]) Comment:Testing performed by : [facility], 1 [facility], [place]., [address] Stool (Rectum) 10/25/2024 8: 07 AM CDT 10/25/2024 11:43 AM CDT Narrative [facility] ([place]) - 10/30/2024 4:03 PM CDT Testing performed by [facility] Microbiology Laboratory ([phone]). Routine stool cultures include procedures to detect Salmonella, Shigella, Edwardsiella, Aeromonas, Pleisiomonas, Campylobacter, Yersinia, E. coli O157, and Shiga-like toxins. Vibrio is cultured only upon special request. If Vibrio is suspected, please call the laboratory at [phone]. Interpretive data was last updated December 18, 2016. Josue Cannon MD LAB MICROBIOLOGY - GENERAL O RDERABLES Final Result Performing Organization Address [facility] Co de Phone Number [facility] ([place]) 1 [facility] [place] [place] [address] * Lipase (10/25/2024 8:07 AM CDT) Lipase 14 10 - 99 Units/L Blood 10/25/2024 8:07 AM CDT 10/25/2024 8:12 AM CDT Josue Cannon MD LAB BLOOD ORDERABLES Final R esult Performing Organization Address [facility] Co de Phone Number [facility] ([place]) 1 [facility] [place] [address] * (ABNORMAL) Comprehensive metabolic panel (10/25/2024 8:07 AM CDT) Sodium 135 135 - 145 mmol/L Potassium, pl 3.3 3.3 - 4.9 mmol/L [facility] ([place]) Chloride 98 97 - 110 mmol/L [facility] ([place]) CO2 19(L) 22 - 32 mmol/L [facility] ([place]) Anion gap 19(H) 2 - 15 [...] R esult [facility] ([place]) 1 [facility] [place] [address] from Last 3 Months Insurance [employer] CHO[employer] PPO [facility] ADVANTAGE CHOICE PPO Advance Directives For more information, please contact: [phone] * Full Code (Latest Code Status on File) Date Activated Date Inactivated Comments 10/25/2024 12:49 PM 10/28/2024 8:15 PM Care Teams Affiliate Marketing Specialist Relationship Specialty Start Date End Date Molly Poe NP [facility] [place] [address] PCP - General Nurse Practitioner 10/25/24
--- OUTSIDE RECORDS SUMMARY | 2024-11-07 13:48 | XMS_ITS | Clinical Summary ---
Author Organization [facility] Address [address] [place] [address] Care Team Providers Care Lead Technologist In Cytogenetics Name Role Phone Unavailable Primary Care Provider Unavailabl e Source Comments [facility],non-owned Affiliates and Associated Physician Practices is amultiple site organization consisting of ambulatory clinics and hospital sitesin [place], [place], [place] and [place]. This disclosure is being madepursuant to the Care Everywhere program and may not contain all information available regarding this patient. Last updated 18.[facility] [employer] Allergies Active Allergy Reactions Criticality Noted Date [...] Department Care Team Description 10/10/2024 Lab Requisition [facility] - DermPath Lab [address], [facility] [place] [address] Fredy Rhodes MD Neoplasm of uncertain behavior [...] Comments DERMATOPATHOLOGY Routine 10/10/2024 12:0 0 AM [facility] Neoplasm of uncertain behavior of skin from Last 3 Months Results * DERMATOPATHOLOGY (10/10/2024 12:00 AM DEWER) Case Report Dermatopathology Report Case: [id number] Authorizing Provider: Fredy Rhodes MD Collected: 10/10/2024 12:00 AM Ordering Location: [facility] - Received: 10/13/2024 04:17 PM DermPath Lab Pathologist: Antonella Ag MD Specimens: A) - Skin, right chin B) - Skin, left upper arm 5:11 PM [facility] DERMATOPATHOLOGY LABORATORY Final Diagnosis Specimen A. SKIN, right chin: BASAL CELL CARCINOMA, NODULAR TYPE (C44.319) Specimen B. 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 Jar 0. 5:11 PM [facility] DERMATOPATHOLOGY LABORATORY Microscopic Description Specimen A. SKIN, right chin: Within the dermis there are aggregates of basaloid cells with a high nuclear to cytoplasmic ratio and peripheral palisading. Specimen B. SKIN, left upper arm: The epidermis shows parakeratosis, full thickness disorderly maturation of keratinocytes, mitoses at different levels, and dyskeratotic cells. There is a column of marked compact hyperkeratosis. 5:11 PM [facility] DERMATOPATHOLOGY LABORATORY Disclaimer An external and internal positive and negative controls are appropriate for the histochemical, immunohistochemical and immunofluorescence stain(s) in this case (if any), except where stated explicitly. The performance characteristics of the stain(s) cited in this report were developed and its performance characteristic determined by the Dermatopathology Laboratory at [facility], directed by Dr. Silvana Kramer. These tests need not be, and therefore are not, approved by the [place] Food and Drug Administration. The tests are used for clinical purposes. Billing Codes Specimen Charges Stain Charges 57215 43052 1 1 5 5:11 PM [facility] DERMATOPATH[facility]Y LABORATORY Embedded Images 5:11 PM [facility] DERMATOPATH[facility]Y [facility]ORATORY Pathology/Cytology TISSUE SPECIMEN FROM SKIN / Unknown 10/10/2024 10/13/2024 4:17 PM [facility] Miscellaneous samples (specimen) TISSUE SPECIMEN FROM SKIN / Unknown 10/10/2024 10/13/2024 4:17 PM [facility] Fredy Rhodes MD LAB - PATHOLOGY/CYTO LOGY ORDERABLES DERMATOPATHOLOGY LABORATORY [facility] - Department of Dermatology [facility] Medicine [address] [place] [address], [address] [phone] from Last 3 Months
--- OUTSIDE RECORDS SUMMARY | 2024-11-07 13:48 | XMS_ITS | Encounter Summary ---
Author Organization [facility] Address [facility] [place] [address] Care Team Providers Care Carriage Dogger Name Role Phone Unavailable Primary Care Provider Unavailabl e Encounter Details Date Type Department Care Team (Late st Contact Info) Description 10/10/2024 Lab Requisition [facility] - DermPath Lab [address] [place] [id number] Fredy Rhodes MD [facility] DERMATOLOGY [address] [place] [id number] Neoplasm of uncertain behavior of skin [...] Comments DERMATOPATHOLOGY Routine 10/10/2024 12:0 0 AM PORCELAIN TECHNICIAN Neoplasm of uncertain behavior of skin documented in this encounter Results * DERMATOPATHOLOGY (10/10/2024 12:00 AM PORCELAIN TECHNICIAN) Case Report Dermatopathology Report Case: [id number] Authorizing Provider: Fredy Rhodes MD Collected: 10/10/2024 12:00 AM Ordering Location: [facility] - Received: 10/13/2024 04:17 PM DermPath Lab Pathologist: Antonella Ag MD Specimens: A) - Skin, right chin B) - Skin, left upper arm 5:11 PM [facility] DERMATOPATHOLOGY LABORATORY Final Diagnosis Specimen A. SKIN, right chin: BASAL CELL CARCINOMA, NODULAR TYPE (C44.319) Specimen B. 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 Jar 0. 5:11 PM [facility] DERMATOPATHOLOGY LABORATORY Microscopic Description Specimen A. SKIN, right chin: Within the dermis there are aggregates of basaloid cells with a high nuclear to cytoplasmic ratio and peripheral palisading. Specimen B. SKIN, left upper arm: The epidermis shows parakeratosis, full thickness disorderly maturation of keratinocytes, mitoses at different levels, and dyskeratotic cells. There is a column of marked compact hyperkeratosis. 5:11 PM [facility] DERMATOPATHOLOGY LABORATORY Disclaimer An external and internal positive and negative controls are appropriate for the histochemical, immunohistochemical and immunofluorescence stain(s) in this case (if any), except where stated explicitly. The performance characteristics of the stain(s) cited in this report were developed and its performance characteristic determined by the Dermatopathology Laboratory at [facility], directed by Dr. Silvana Kramer. These tests need not be, and therefore are not, approved by the [place] Food and Drug Administration. The tests are used for clinical purposes. Billing Codes Specimen Charges Stain Charges 20755 [id number] 1 1 5:11 PM [facility] DERMATOPATHOLOGY LABORATORY Embedded Images 5:11 PM PORCELAIN TECHNICIAN DERMATOPATHOLOGY LABORATORY Pathology/Cytology TISSUE SPECIMEN FROM SKIN / Unknown 10/10/2024 10/13/2024 4:17 PM PORCELAIN TECHNICIAN Miscellaneous samples (specimen) TISSUE SPECIMEN FROM SKIN / Unknown 10/10/2024 10/13/2024 4:17 PM PORCELAIN TECHNICIAN Fredy Rhodes MD LAB - PATHOLOGY/CYTO LOGY ORDERABLES DERMATOPATHOLOGY LABORATORY [facility] - Department of Dermatology [facility] [address] [place] [address], [address] [phone] documented in this encounter Visit Diagnoses Diagnosis Neoplasm of uncertain behavior of skin documented in this encounter
[2024-11-07 14:27] VITALS: BP 133/63; PULSE 90; RESP 16; O2SAT 100
[2024-11-07 14:56] LABS: Lactic Acid Reflex 1.8 mmol/L (0.7-2.0)
[2024-11-07] MEDS: metroNIDAZOLE 500 MG/ISO 100ML 500 MG/100 ML BAG 100 MG IVPB (16:37)
[2024-11-07 16:39] VITALS: BP 140/59; PULSE 93; RESP 14; O2SAT 100
[2024-11-07 17:05] LABS: Toxigenic C. Diff POSITIVE (NEGATIVE)
[2024-11-07 17:28] LABS: CRP 6.1 mg/dL (<1.0)
[2024-11-07] MEDS: CIPROFLOXACIN 400 MG/D5W 200ML 200 ML 200 MG IVPB (17:35)
[2024-11-07] MEDS: FIDAXOMICIN 200 MG TABLET PO (17:35)
--- NOTE | 2024-11-07 18:22 | ADMGEN ---
This patient, Radha Linares, was admitted to Medical Room 347-. Patient/family oriented to hospital policies and general routines including ID bracelet, bed and alarms, visiting hours, pain management, procedures, bathroom and other care routines, personal items, smoking policy, room service/diet, and visiting hours. Information on how to activate the Rapid Response Team has been discussed. Patient/Family are encouraged to report perceived risks to care and to ask questions if they do not understand what they are told or what they should do.
[2024-11-07 18:23] VITALS: BMI 22.6
--- NOTE | 2024-11-07 18:25 | P.HP_ITS ---
H&P: HPI History of Present Illness Date/Time: 11/07/24 18:25 Chief Complaint: Diarrhea. Narrative: This is a 73-year-old female with hypertension, SMA stenosis, and chronic obstructive pulmonary disease who presented to the emergency department for evaluation of diarrhea. She reports having issues with diarrhea and small caliber stool since last April for which she was evaluated by GI. Colonoscopy done in June showed internal hemorrhoids and a colon polyp which was benign. She has continued to have diarrhea off and on and was recently admitted to [facility] a couple of weeks ago for 3 days in which she was treated for colitis after presenting with diarrhea. Stool studies were reportedly unremarkable. She was found to have 70% SMA stenosis and was seen by vascular surgery who ruled out ischemic colitis. She received IV antibiotics and was discharged home with improvement in her diarrhea. Last evening she developed chills and rigors followed by nausea, vomiting, and diarrhea. She has had innumerable bouts of diarrhea since that time, described as light in color admixed with mucus. She has had no further episodes of emesis. She also complains of diffuse lower abdominal cramping. No one in her household has had similar symptoms. She denies recent travel. No history of inflammatory bowel disease or C diff diarrhea. In the ED: Vital signs were stable on arrival. Labs are significant for WBC count of 23.4, BUN 24, creatinine 1.26, CRP 6.1. CTA of the abdomen pelvis showed pancolitis with moderate stenosis of the superior mesenteric artery. She was positive for C diff by PCR. She was initially given a dose of ciprofloxacin and metronidazole and was started on IV fluids. She has since been started on fidaxomicin and she is being admitted for further treatment. Review of Systems Review of Systems: 12 systems were reviewed and are negativ e except for as per HPI. [facility] Past Medical History Medical History (Updated 11/07/24 @ 21:09 by Kimberly Tirado PA-C) Problematic consumption of alcohol Osteoporosis Superior mesenteric artery stenosis moderate stenosis SMA on CT 11/07/2024, followed by vascular Chronic obstructive pulmonary disease Arthritis Asthma Surgical History Surgical History (Updated 11/07/24 @ 21:06 by Kimberly Tirado PA-C) History of hysterectomy for benign disease History of colonoscopy with polypectomy History of tonsillectomy History of bilateral cataract extraction History of appendectomy Family History Family History Father Cancer Aneurysm Mother Cancer Sibling Cancer Aneurysm Social History Social History (Updated 11/07/24 @ 21:06 by Kimberly Tirado PA-C) Social History: Surrogate medical decision maker: Jhonathan Linares, spouse. Code status: Full code. Smoking packs per day: 0.75 Smoking cigarettes per day: 15.0 Years smoked: 47 Smoking pack-years: 35.25 Smoking status: Former smoker Alcohol intake: current Drinks per week: 35 Alcohol use details: rum or wine Substance use type: does not use Do You Feel Safe in your Home?: Yes Lack of Transportation: No Lack of Food: Never True Current Housing: I Have Housing Concerned About Future Housing: No Difficulty Paying Gas/Electric Bills: No Difficulty Paying for Meds: No Currently Unemployed: No Education: High School Diploma/GED Difficulty w/ Childcare or Family Care: No Living arrangements: with family Spiritual care concerns: No Agree to blood products: Yes Meds Home Medications and Allergies Home Medications ?Medication ?Instructions ?Recorded ?Confirmed ?Type albuterol sulfate 2.5 mg/3 mL 2.5 mg (3 mL) inhalation Q4-6H PRN 12/20/23 11/07/24 Rx (0.083 %) solution for nebulization bronchospasm #90 mL albuterol sulfate 90 mcg/actuation 2 puff inhalation Q4H PRN 12/20/23 11/07/24 History aerosol inhaler (Ventolin HFA) shortness of breath or wheezing triamterene 37.5 1 tablet PO QAM 12/20/23 11/07/24 History mg-hydrochlorothiazide 25 mg tablet losartan 50 mg tablet 50 mg PO DAILY #90 tabs 01/17/24 11/07/24 Rx fluticasone 500 mcg-salmeterol 50 1 inh inhalation Q12H #60 ea 03/26/24 11/07/24 Rx mcg/dose blistr powdr for inhalation (Wixela Inhub) Allergies Allergy/AdvReac Type Severity Reaction Status Date / Time amlodipine Allergy Unknown Swelling Verified 11/04/24 08:57 denosumab (From Prolia) Allergy Unknown Unknown Verified 11/04/24 08:57 fluticasone furoate (From Allergy Unknown Unknown Verified 11/04/24 08:57 Trelegy Ellipta) nitrofurantoin Allergy Unknown Unknown Verified 11/04/24 08:57 umeclidinium (From Trelegy Allergy Unknown Unknown Verified 11/04/24 08:57 Ellipta) vilanterol (From Trelegy Allergy Unknown Unknown Verified 11/04/24 08:57 Ellipta) NITROFURANTOIN MACROCRYSTAL Allergy Unknown Unknown Uncoded 11/04/24 08:57 Vital Signs Vital Signs - 24 hr 11/07/24 11:16 11/07/24 12:32 11/07/24 14:27 Temperature 98.2 F Pulse Rate 110 H 97 90 Respiratory Rate 20 12 16 Blood Pressure 125/62 117/59 L 133/63 Pulse Oximetry 95 100 Oxygen Delivery Room Air 11/07/24 16:39 Temperature Pulse Rate 93 Respiratory Rate 14 Blood Pressure 140/59 L Pulse Oximetry 100 Oxygen Delivery Exam Narrative: General: Mildly ill-appearing female supine in bed in no acute distress. Weight: 56.2 kg. BMI: 22.7. HEENT: PERRL, EOMI. Sclera anicteric. Tacky mucous membranes. Neck: Supple. Respiratory: Lungs are clear to auscultation bilaterally. Cardiovascular: Regular rate and rhythm with S1-S2. Gastrointestinal: Abdomen is soft and nondistended with positive bowel sounds. She is a bit tender to palpation throughout the periumbilical region without voluntary guarding or rebound tenderness. Skin: Warm and dry. Extremities: No cyanosis, clubbing, or edema. Radial and pedal pulses intact. Neurological: Alert. Cranial nerves 2-12 are grossly intact. No gross focal deficits to casual conversation. Psychiatric: Pleasant and cooperative with normal mood and affect. Judgment and insight intact. H&P: Results Labs Labs: Short CBC 11/07/24 Range/Units 12:10 WBC 23.4 H (4.5-10.0) K/mm3 Hgb 12.6 (12.0-15.0) g/dL Hct 38.1 (37.0-47.0) % Plt Count 347 (150-375) k/mm3 [facility] 11/07/24 12:10 Sodium 135 L Potassium 3.5 Chloride 100 Carbon Dioxide 24 BUN 24 H Creatinine 1.26 H Glucose 106 Calcium 9.3 Liver Function 11/07/24 Range/Units 12:10 Total Bilirubin 1.1 (0.2-1.3) mg/dL AST 20 (14-36) U/L ALT 17 (6-35) U/L Alkaline Phosphatase 53 (38-126) U/L Albumin 4.1 (3.5-5.1) g/dL Urine 11/07/24 Range/Units 13:05 Urine Color Yellow (Yellow) Urine Appearance Cloudy H (Clear) Urine pH 5.5 (5.0-9.0) Ur Specific [place] 1.012 (1.001-1.035) Urine Protein Negative (Negative) mg/dL Urine Glucose (UA) Negative (Negative) mg/dL Imaging Abdomen/Pelvis CTA 11/07/24 13:57 IMPRESSION: 1. Pancolitis. 2. Moderate stenosis of superior mesenteric artery. Assessment and Plan Assessment and plan (1) Clostridium difficile colitis: Code(s): A04.72 - Enterocolitis due to Clostridium difficile, not specified as recurrent Status: Acute (2) Acute kidney injury: Code(s): N17.9 - Acute kidney failure, unspecified Status: Acute (3) Dehydration: Code(s): E86.0 - Dehydration Status: Acute (4) Mesenteric artery stenosis: Code(s): K55.1 - Chronic vascular disorders of intestine Status: Acute (5) Chronic obstructive pulmonary disease: Code(s): J44.9 - Chronic obstructive pulmonary disease, unspecified Status: Acute (6) Hypertension: Code(s): I10 - Essential (primary) hypertension Status: Acute (7) Problematic consumption of alcohol: Code(s): F10.90 - Alcohol use, unspecified, uncomplicated Status: Acute Plan The patient presented to the emergency department for evaluation of nausea, vomiting, and diarrhea as detailed in HPI. Labs, imaging, EKG, and all reports were personally reviewed. She was just hospitalized at [facility] for the same thing and reports that her stool studies were not reportedly negative at that time. She did test positive for C diff by PCR today and has been started on fidaxomicin. Acute kidney injury is likely related to volume depletion from significant diarrhea in addition to thiazide diuretic use. She will be hydrated overnight. Diuretics have been placed on hold. Mesenteric artery stenosis is not currently an issue and she is followed by vascular surgery as an outpatient. No acute issues with regards to COPD. She has about 5 alcoholic beverages a day but denies ever having signs or symptoms of alcohol withdrawal. She was encouraged to cut back on her intake. Her home medications will be reviewed and resumed as appropriate. Findings and treatment plan were discussed with the patient. Questions were solicited and answered to satisfaction. The patient's medical management will be taken over by the hospitalist team in a.m. Quality VTE Prophylaxis VTE prophylaxis: pharmacologic ordered Hospitalist MIPS Advance Care Plan I have confirmed that the patient's Advanced Care Plan is present, code status is documented, or surrogate decision maker is listed in patient medical record.: Yes Medication Reconciliation I have utilized all available resources to obtain, update and review the patients current medications (includes all prescriptions, OTC, herbals, cannabis, and nutritional supplements).: Yes
[2024-11-07] MEDS: LACTATED RINGERS 1,000 ML 125 ML IV CONT (18:33)
[2024-11-07 20:21] VITALS: BP 121/49; PULSE 90; RESP 18; TEMP 36.5; O2SAT 100
[2024-11-08 03:50] VITALS: BP 117/58; PULSE 81; RESP 18; TEMP 36.9; O2SAT 98
[2024-11-08] MEDS: LACTATED RINGERS 1,000 ML 85 ML IV CONT (05:05)
[2024-11-08 05:53] LABS: Hematocrit 33.8 % (37.0-47.0); Hemoglobin 11.1 g/dL (12.0-15.0); Mean Corpuscular HGB Conc 32.8 g/dl (32-36); Mean Corpuscular Hemoglobin 30.3 pg (26-34); Mean Corpuscular Volume 92.3 fl (80-100); Mean Platelet Volume 9.5 fl (7.4-10.4); Platelet Count Result 261 k/mm3 (150-375); Red Blood Count 3.66 M/mm3 (4.2-5.4); Red Cell Distribution Width 12.9 % (11.5-14.5); White Blood Count 10.3 K/mm3 (4.5-10.0)
[2024-11-08 06:07] LABS: Anion Gap 12 mmol/L (4-12); Blood Urea Nitrogen 21 mg/dL (7-17); Calcium 8.6 mg/dL (8.4-10.2); Carbon Dioxide 23 mmol/L (22-30); Chloride 100 mmol/L (98-107); Estimated CRCL calculation 21 ml/min; Estimated Glomerular Filt Rate 29; Glucose 93 mg/dL (65-110); Magnesium 1.5 mg/dL (1.6-2.3); Potassium 3.5 mmol/L (3.4-5.0); Sodium 135 mmol/L (137-145)
[2024-11-08] MEDS: FLUTICASONE/SALMETEROL 230-21 MCG INHALER 1 PUFF 2 PUFF INHALATION (07:56)
[2024-11-08 07:57] VITALS: O2SAT 98
[2024-11-08] MEDS: FIDAXOMICIN 200 MG TABLET PO (08:27)
--- NOTE | 2024-11-08 11:25 | PM.IMPN ---
Progress Note: A&P Assessment and Plan (1) Clostridium difficile colitis: Code(s): A04.72 - Enterocolitis due to Clostridium difficile, not specified as recurrent Status: Acute (2) Acute kidney injury: Code(s): N17.9 - Acute kidney failure, unspecified Status: Acute (3) Dehydration: Code(s): E86.0 - Dehydration Status: Acute (4) Mesenteric artery stenosis: Code(s): K55.1 - Chronic vascular disorders of intestine Status: Acute (5) Chronic obstructive pulmonary disease: Code(s): J44.9 - Chronic obstructive pulmonary disease, unspecified Status: Acute (6) Hypertension: Code(s): I10 - Essential (primary) hypertension Status: Acute (7) Problematic consumption of alcohol: Code(s): F10.90 - Alcohol use, unspecified, uncomplicated Status: Acute Plan - The patient presented to the emergency department for evaluation of nausea, vomiting, and diarrhea as detailed in HPI. Labs, imaging, EKG, and all reports were personally reviewed. She was just hospitalized at [facility] for the same thing and reports that her stool studies were not reportedly negative at that time. - She did test positive for C diff by PCR today and has been started on fidaxomicin. - Acute kidney injury is likely related to volume depletion from significant diarrhea in addition to thiazide diuretic use. She will be hydrated overnight. Diuretics have been placed on hold. Mesenteric artery stenosis is not currently an issue and she is followed by vascular surgery as an outpatient. No acute issues with regards to COPD. She has about 5 alcoholic beverages a day but denies ever having signs or symptoms of alcohol withdrawal. Alcohol cessacion education is completed. Time Spent With Patient Time with patient: 25 - 35 minutes Subjective Date/time seen: 11/08/24 11:25 Interval history: 73-year-old female with hypertension, SMA stenosis, and chronic obstructive pulmonary disease who admitted for evaluation of diarrhea. She reports having issues with diarrhea and small caliber stool since last April for which she was evaluated by GI. Colonoscopy done in June showed internal hemorrhoids and a colon polyp which was benign. She has continued to have diarrhea off and on and was recently admitted to [facility] a couple of weeks ago for 3 days in which she was treated for colitis after presenting with diarrhea. Stool studies were reportedly unremarkable. She was found to have 70% SMA stenosis and was seen by vascular surgery who ruled out ischemic colitis. She received IV antibiotics and was discharged home with improvement in her diarrhea. Last evening she developed chills and rigors followed by nausea, vomiting, and diarrhea... She also complains of diffuse lower abdominal cramping. No one in her household has had similar symptoms. She denies recent travel. No history of inflammatory bowel disease or C diff diarrhea. In the ED: Vital signs were stable on arrival. Labs are significant for WBC count of 23.4, BUN 24, creatinine 1.26, CRP 6.1. CTA of the abdomen pelvis showed pancolitis with moderate stenosis of the superior mesenteric artery. She was positive for C diff by PCR. She was initially given a dose of ciprofloxacin and metronidazole and was started on IV fluids. She has since been started on fidaxomicin and she is being admitted for further treatment. Pt is seen and examined. Review of Systems Review of Systems: 12 systems were reviewed and are negative except for as per HPI. Exam Narrative: General: Mildly ill-appearing female supine in bed in no acute distress. Weight: 56.2 kg. BMI: 22.7. HEENT: PERRL, EOMI. Sclera anicteric. Tacky mucous membranes. Neck: Supple. Respiratory: Lungs are clear to auscultation bilaterally. Cardiovascular: Regular rate and rhythm with S1-S2. Gastrointestinal: Abdomen is soft and nondistended with positive bowel sounds. She is a bit tender to palpation throughout the periumbilical region without voluntary guarding or rebound tenderness. Skin: Warm and dry. Extremities: No cyanosis, clubbing, or edema. Radial and pedal pulses intact. Neurological: Alert. Cranial nerves 2-12 are grossly intact. No gross focal deficits to casual conversation. Psychiatric: Pleasant and cooperative with normal mood and affect. Judgment and insight intact. Objective Data Vital Signs Vital Signs: Vital Signs - 24 hr 11/07/24 12:32 11/07/24 14:27 11/07/24 16:39 Temperature Pulse Rate 97 90 93 Respiratory Rate 12 16 14 Blood Pressure 117/59 L 133/63 140/59 L Pulse Oximetry 100 100 Oxygen Delivery 11/07/24 20:21 11/08/24 03:50 11/08/24 07:57 Temperature 97.7 F 98.5 F Pulse Rate 90 81 Respiratory Rate 18 18 Blood Pressure 121/49 L 117/58 L Pulse Oximetry 100 98 98 Oxygen Delivery Room Air Intake/Output Intake/Output: Intake & Output 11/05/24 11/06/24 11/07/24 11/08/24 23:59 23:59 23:59 23:59 Intake Total 1810.4 1429.6 Balance 1810.4 1429.6 Meds/Results Medications: Active Medications Generic Name Dose Route Start Last Admin Trade Name Freq PRN Reason Stop Dose Admin Acetaminophen 650 mg 11/07/24 16:51 Acetaminophen 325 Mg Tablet PO Q4H PRN Mild Pain (1-3) or Fever Acetaminophen 650 mg 11/07/24 21:11 Acetaminophen 325 Mg Tablet PO Q6H PRN Mild Pain (1-3) or Fever Albuterol 2.5 mg 11/07/24 21:11 Albuterol Sulfate Neb 2.5 Mg/3 Ml Inh INHALATION Q4HRT PRN bronchospasm Albuterol 2 puff 11/07/24 21:11 Albuterol Sulfate (*Sp) Aerosol 1 Puff INHALATION Q4HRT PRN shortness of breath or wheezing Fidaxomicin 200 mg 11/07/24 17:10 11/08/24 08:27 Fidaxomicin 200 Mg Tablet PO 11/17/24 17:09 200 mg Q12HR EVA Administration Lactated Ringer's 1,000 mls @ 85 mls/hr 11/07/24 16:55 11/08/24 05:05 Lr - Lactated Ringers Iv IV CONT 11/08/24 12:00 85 mls/hr .[id number] EVA Administration Morphine Sulfate 2 mg 11/07/24 16:51 Morphine Sulfate (*Crx) 2 Mg/Ml Inj IV PUSH Q2H PRN Pain Rated 7-10 Fluticasone/Salmeterol 2 puff 11/08/24 08:00 11/08/24 07:56 Fluticasone/Salmeterol 230-21 Mcg Inhaler 1 Puff INHALATION 2 puff Q12HRT EVA Administration Radiology Results: ITS Impressions Abdomen/Pelvis CTA 11/07/24 13:57 IMPRESSION: 1. Pancolitis. 2. Moderate stenosis of superior mesenteric artery. Labs Labs: Laboratory Results - last 24 hr 11/07/24 11/07/24 11/07/24 12:10 13:05 14:37 WBC 23.4 H RBC 4.12 L Hgb 12.6 Hct 38.1 MCV 92.5 MCH 30.6 MCHC 33.1 RDW 13.2 Plt Count 347 MPV 9.4 Immature Gran % (Auto) Not Reportable Neut % (Auto) Not Reportable Lymph % (Auto) Not Reportable Cooper % (Auto) Not Reportable Eos % (Auto) Not Reportable Baso % (Auto) Not Reportable Lymph # (Auto) Not Reportable Cooper # (Auto) Not Reportable Eos # (Auto) Not Reportable Baso # (Auto) Not Reportable Abs Immat Gran (auto) Not Reportable Absolute Neuts (auto) Not Reportable Absolute Nucleated RBC Not Reportable Total Counted 100 Neutrophils % (Manual) 75 H Band Neutrophils % 6 Lymphocytes % (Manual) 14 L Monocytes % (Manual) 5 Eosinophils % (Manual) 0 Basophils % (Manual) 0 Nucleated RBC % Not Reportable Abs Neuts (Manual) 18.95 H Abs Lymphs (Manual) 3.27 Abs Monocytes (Manual) 1.17 H Absolute Eos (Manual) 0.00 L Abs Basophils (Manual) 0.00 Platelet Estimate Slightly increased Large Platelets Present Giant Platelets Present Schistocytes None seen Sodium 135 L Potassium 3.5 Chloride 100 Carbon Dioxide 24 Anion Gap 11 BUN 24 H Creatinine 1.26 H Estim Creat Clear Calc 29 Estimated GFR 42 L Glucose 106 Lactic Acid 1.8 Calcium 9.3 Magnesium Total Bilirubin 1.1 AST 20 ALT 17 Alkaline Phosphatase 53 C-Reactive Protein 6.1 H Total Protein 7.0 Albumin 4.1 Lipase 91 Urine Color Yellow Urine Appearance Cloudy H Urine pH 5.5 Ur Specific [place] 1.012 Urine Protein Negative Urine Glucose (UA) Negative Urine Ketones Negative Ur Blood (Man) Negative Urine Nitrate Negative Urine Bilirubin Negative Urine Urobilinogen 0.2 Leukocyte Esterase Rfl Negative Urine RBC 0-2 Urine WBC 0-5 Ur Squamous Epith Cells Moderate Urine Bacteria None seen Urine Casts 3-5 C. difficile (PCR) 11/07/24 11/08/24 15:34 05:39 WBC 10.3 H RBC 3.66 L Hgb 11.1 L Hct 33.8 L MCV 92.3 MCH 30.3 MCHC 32.8 RDW 12.9 Plt Count 261 MPV 9.5 Immature Gran % (Auto) Neut % (Auto) Lymph % (Auto) Cooper % (Auto) Eos % (Auto) Baso % (Auto) Lymph # (Auto) Cooper # (Auto) Eos # (Auto) Baso # (Auto) Abs Immat Gran (auto) Absolute Neuts (auto) Absolute Nucleated RBC Total Counted Neutrophils % (Manual) Band Neutrophils % Lymphocytes % (Manual) Monocytes % (Manual) Eosinophils % (Manual) Basophils % (Manual) Nucleated RBC % Abs Neuts (Manual) Abs Lymphs (Manual) Abs Monocytes (Manual) Absolute Eos (Manual) Abs Basophils (Manual) Platelet Estimate Large Platelets Giant Platelets Schistocytes Sodium 135 L Potassium 3.5 Chloride 100 Carbon Dioxide 23 Anion Gap 12 BUN 21 H Creatinine 1.74 H Estim Creat Clear Calc 21 Estimated GFR 29 L Glucose 93 Lactic Acid Calcium 8.6 Magnesium 1.5 L Total Bilirubin AST ALT Alkaline Phosphatase C-Reactive Protein Total Protein Albumin Lipase Urine Color Urine Appearance Urine pH Ur Specific [place] Urine Protein Urine Glucose (UA) Urine Ketones Ur Blood (Man) Urine Nitrate Urine Bilirubin Urine Urobilinogen Leukocyte Esterase Rfl Urine RBC Urine WBC Ur Squamous Epith Cells Urine Bacteria Urine Casts C. difficile (PCR) Positive A* Quality VTE Prophylaxis VTE prophylaxis: pharmacologic ordered
[2024-11-08 13:43] VITALS: BP 119/66; PULSE 92; RESP 17; TEMP 36.7; O2SAT 100
--- NOTE | 2024-11-08 14:16 | WPDGICN ---
Assessment and Plan Assessment and plan (1) Colitis due to Clostridioides difficile: Code(s): A04.72 - Enterocolitis due to Clostridium difficile, not specified as recurrent Status: Acute Assessment and Plan: The patient has evidence of C difficile colitis associated with her recent ten-day course of amoxicillin.? There is information about stenosis of the SMA, however it is an incidental finding? and usually ischemic colitis does not depend and on SMA stenosis, but, it is rather a phenomenon induced by hypotension and predisposing factors of the patients such as preexistent coronary artery disease, smoking history, peripheral vascular disease etc..? ? She is clinically stable and her white count has decreased significantly, however her creatinine level is somewhat higher than yesterday.? Consideration should be given by the hospitalist team to observe for 1 more day and continue providing hydration. She should continue Fidaxomycin for 10 days, and if there is recurrence, the administration of Vowst is a viable option. GI Consult Note Consult date/time: 11/08/24 14:16 HPI: Radha Linares is a 73 year old female Who was admitted for the onset of severe diarrhea and crampy abdominal pain. She states she received a ten-day course of amoxicillin for an apparent infectious gastroenteritis approximately 1 month ago. Since then, she has continued to have diarrhea which was exacerbated 48 hours ago. She was found to have C difficile on stool studies and is currently responding well to fidaxomicin 2 mg b.i.d., she had a few moments yesterday but more formed and less frequent. There is no fever. Her white count has decreased from 23 to 10. she expresses her desire to go home today. [facility] Past Medical History Medical History (Updated 11/08/24 @ 14:21 by Mir Ellsworth MD) Problematic consumption of alcohol Osteoporosis Superior mesenteric artery stenosis moderate stenosis SMA on CT 11/07/2024, followed by vascular Chronic obstructive pulmonary disease Arthritis Asthma Surgical History Surgical History (Updated 11/07/24 @ 21:06 by Kimberly Tirado PA-C) History of hysterectomy for benign disease History of colonoscopy with polypectomy History of tonsillectomy History of bilateral cataract extraction History of appendectomy Family History Family History Father Cancer Aneurysm Mother Cancer Sibling Cancer Aneurysm Social History Social History (Updated 11/07/24 @ 21:06 by Kimberly Tirado PA-C) Social History: Surrogate medical decision maker: Jhonathan Linares, spouse. Code status: Full code. Smoking packs per day: 0.75 Smoking cigarettes per day: 15.0 Years smoked: 47 Smoking pack-years: 35.25 Smoking status: Former smoker Alcohol intake: current Drinks per week: 35 Alcohol use details: rum or wine Substance use type: does not use Do You Feel Safe in your Home?: Yes Lack of Transportation: No Lack of Food: Never True Current Housing: I Have Housing Concerned About Future Housing: No Difficulty Paying Gas/Electric Bills: No Difficulty Paying for Meds: No Currently Unemployed: No Education: High School Diploma/GED Difficulty w/ Childcare or Family Care: No Living arrangements: with family Spiritual care concerns: No Agree to blood products: Yes Meds Home Medications and Allergies Home Medications ?Medication ?Instructions ?Recorded ?Confirmed ?Type albuterol sulfate 2.5 mg/3 mL 2.5 mg (3 mL) inhalation Q4-6H PRN 12/20/23 11/07/24 Rx (0.083 %) solution for nebulization bronchospasm #90 mL albuterol sulfate 90 mcg/actuation 2 puff inhalation Q4H PRN 12/20/23 11/07/24 History aerosol inhaler (Ventolin HFA) shortness of breath or wheezing triamterene 37.5 1 tablet PO QAM 12/20/23 11/07/24 History mg-hydrochlorothiazide 25 mg tablet losartan 50 mg tablet 50 mg PO DAILY #90 tabs 01/17/24 11/07/24 Rx fluticasone 500 mcg-salmeterol 50 1 inh inhalation Q12H #60 ea 03/26/24 11/07/24 Rx mcg/dose blistr powdr for inhalation (Wixela Inhub) Allergies Allergy/AdvReac Type Severity Reaction Status Date / Time amlodipine Allergy Unknown Swelling Verified 11/04/24 08:57 denosumab (From Prolia) Allergy Unknown Unknown Verified 11/04/24 08:57 fluticasone furoate (From Allergy Unknown Unknown Verified 11/04/24 08:57 Trelegy Ellipta) nitrofurantoin Allergy Unknown Unknown Verified 11/04/24 08:57 umeclidinium (From Trelegy Allergy Unknown Unknown Verified 11/04/24 08:57 Ellipta) vilanterol (From Trelegy Allergy Unknown Unknown Verified 11/04/24 08:57 Ellipta) NITROFURANTOIN MACROCRYSTAL Allergy Unknown Unknown Uncoded 11/04/24 08:57 Vital Signs Vital Signs - 24 hr 11/07/24 14:27 11/07/24 16:39 11/07/24 20:21 Temperature 97.7 F Pulse Rate 90 93 90 Respiratory Rate 16 14 18 Blood Pressure 133/63 140/59 L 121/49 L Pulse Oximetry 100 100 100 Oxygen Delivery 11/08/24 03:50 11/08/24 07:57 11/08/24 13:43 Temperature 98.5 F 98.1 F Pulse Rate 81 92 Respiratory Rate 18 17 Blood Pressure 117/58 L 119/66 Pulse Oximetry 98 98 100 Oxygen Delivery Room Air Exam Narrative: Well hydrated. Abdomen: Soft, nontender, no hepatomegaly, no masses. Rest of the examination within normal limits. Results Labs 11/08/24 05:39 11/08/24 05:39 Labs: Short CBC 11/08/24 Range/Units 05:39 WBC 10.3 H (4.5-10.0) K/mm3 Hgb 11.1 L (12.0-15.0) g/dL Hct 33.8 L (37.0-47.0) % Plt Count 261 (150-375) k/mm3 [facility] 11/08/24 05:39 Sodium 135 L Potassium 3.5 Chloride 100 Carbon Dioxide 23 BUN 21 H Creatinine 1.74 H Glucose 93 Calcium 8.6
--- NOTE | 2024-11-08 14:46 | PM.DS ---
DS: Admitting Diagnosis Discharge Date 11/08 Admitting Diagnosis diarrhea DS: Discharge Diagnosis Discharge Diagnosis (1) Clostridium difficile colitis: Code(s): A04.72 - Enterocolitis due to Clostridium difficile, not specified as recurrent Status: Acute (2) Acute kidney injury: Code(s): N17.9 - Acute kidney failure, unspecified Status: Acute (3) Dehydration: Code(s): E86.0 - Dehydration Status: Acute (4) Mesenteric artery stenosis: Code(s): K55.1 - Chronic vascular disorders of intestine Status: Acute (5) Chronic obstructive pulmonary disease: Code(s): J44.9 - Chronic obstructive pulmonary disease, unspecified Status: Acute (6) Hypertension: Code(s): I10 - Essential (primary) hypertension Status: Acute (7) Problematic consumption of alcohol: Code(s): F10.90 - Alcohol use, unspecified, uncomplicated Status: Acute DS: Summary Hospital Course Hospital Course: 73 y. o female with PMH/of HTN, SMA stenosis, COPD presented to the emergency department for evaluation of nausea, vomiting, and diarrhea. She was just hospitalized at [facility] for the same thing. - She did test positive for C diff by PCR today and has been started on fidaxomicin. She received so far 2 doses, will need 18 more doses when discharged. Will be sent to her pharmacy. - Acute kidney injury is likely related to volume depletion from significant diarrhea in addition to thiazide diuretic use. She will be hydrated overnight. Diuretics have been placed on hold. Mesenteric artery stenosis is not currently an issue and she is followed by vascular surgery as an outpatient. Her cr still elevated. Will order cmp after discharged. holding BP meds and diuretics as cr still elevated. once labs rechecked- see pcp for instructions on restarting. Keep monitoring BP daily. IT had been wnl while here. IF starts to increase No acute issues with regards to COPD. She has about 5 alcoholic beverages a day but denies ever having signs or symptoms of alcohol withdrawal. Alcohol cessation education is completed. Status at Discharge Functional status at discharge: independent ambulation Time Spent with Patient Time attestation: Total time spent providing and/or coordinating discharge services: Exam Narrative: General: Mildly ill-appearing female supine in bed in no acute distress. Weight: 56.2 kg. BMI: 22.7. HEENT: PERRL, EOMI. Sclera anicteric. Tacky mucous membranes. Neck: Supple. Respiratory: Lungs are clear to auscultation bilaterally. Cardiovascular: Regular rate and rhythm with S1-S2. Gastrointestinal: Abdomen is soft and nondistended with positive bowel sounds. She is a bit tender to palpation throughout the periumbilical region without voluntary guarding or rebound tenderness. Skin: Warm and dry. Extremities: No cyanosis, clubbing, or edema. Radial and pedal pulses intact. Neurological: Alert. Cranial nerves 2-12 are grossly intact. No gross focal deficits to casual conversation. Psychiatric: Pleasant and cooperative with normal mood and affect. Judgment and insight intact. DS: Data Data Completed and Pending Labs on day of discharge: Labs from last 24 hours 11/08/24 11/07/24 11/07/24 05:39 15:34 14:37 WBC 10.3 H RBC 3.66 L Hgb 11.1 L Hct 33.8 L MCV 92.3 MCH 30.3 MCHC 32.8 RDW 12.9 Plt Count 261 MPV 9.5 Sodium 135 L Potassium 3.5 Chloride 100 Carbon Dioxide 23 Anion Gap 12 BUN 21 H Creatinine 1.74 H Estim Creat Clear Calc 21 Estimated GFR 29 L Glucose 93 Lactic Acid 1.8 Calcium 8.6 Magnesium 1.5 L C-Reactive Protein Stool Calprotectin Pending C. difficile (PCR) Positive A* 11/07/24 12:10 WBC RBC Hgb Hct MCV MCH MCHC RDW Plt Count MPV Sodium Potassium Chloride Carbon Dioxide Anion Gap BUN Creatinine Estim Creat Clear Calc Estimated GFR Glucose Lactic Acid Calcium Magnesium C-Reactive Protein 6.1 H Stool Calprotectin C. difficile (PCR) Preliminary micro results at discharge 11/07/24 13:30 Blood Culture - Preliminary Blood 11/07/24 13:30 Blood Culture - Preliminary Blood Discharge Plan Discharge Attending physician on discharge: Tan Lyons Discharging Clinician: Silvia Salas Patient Disposition: Home, Self-Care Activity: may shower Diet: regular Discharge Instructions: You were admitted for diarrhea and tested positive for C Diff. Started on fidaxomicin- will need to take a total of 10 days of therapy. You received so far 2 doses, will need 18 more doses when discharged. Will be sent to her pharmacy. On labs, you had an acute kidney injury - which is likely related to volume depletion from significant diarrhea in addition to thiazide diuretic use. She will be hydrated overnight. Diuretics have been placed on hold. I will send lab for you to do- please do it in few days after discharge and f/u with pcp prior to restarting your diuretics. Your BP was ok- so your BP meds were held. Please continue to monitor BP in am daily and keep log. IF you notice consistently elevation in bp- please reach out to PCP for further instructions. Patient Instructions: Antibiotic Form Patient Language: Sami Stand Alone Forms: General Discharge Information Follow-up/Referrals: Molly Poe APRN [Primary Care Provider] - 2 Weeks Discharge Medications: New Dificid 200 mg Tablet 200 mg PO Q12HR Qty: 18 0RF Rx Instructions: last day 4/7 pm dose Continued albuterol sulfate [Ventolin HFA] 90 mcg/actuation HFA aerosol inhaler 2 puff inhalation Q4H PRN (Reason: shortness of breath or wheezing) albuterol sulfate 2.5 mg /3 mL (0.083 %) solution for nebulization 2.5 mg inhalation Q4-6H PRN (Reason: bronchospasm) Qty: 90 3RF fluticasone propion-salmeterol [Wixela Inhub] 500-50 mcg/dose blister with device 1 inh inhalation Q12H Qty: 60 11RF Rx Instructions: rinse and spit Held triamterene-hydrochlorothiazid 37.5-25 mg tablet 1 tablet PO QAM Hold Instructions: Resume on 11/14/24. hold until labs are repeated and ok to restart medication per your PCP losartan 50 mg tablet 50 mg PO DAILY Qty: 90 3RF Hold Instructions: Resume on 11/14/24. hold until labs are repeated and ok to restart medication per your PCP Other Ambulatory Orders: Comprehensive Metabolic Panel (Routine) Timeframe: 1 Week Location: Determined by Patient Ordered By: Silvia Salas Date of admission: 11/07/24 16:51 Primary Care Provider: Molly Poe Admitting Provider: Rufus Sweeney Attending physician on admission: Rufus Sweeney Condition: Stable Quality VTE Prophylaxis VTE prophylaxis: pharmacologic ordered
[2024-11-15 00:49] LABS: Calprotectin, Stool 2330 mcg/g
== END 2024-11-08 16:09 | disposition home or self-care (01) | DRG 372 ==
LOC: ANHED 13:40 → ANH3MED 21:28
PROVIDERS: Family Medicine; Physician Assistant; Admitting Provider Internal Medicine; Emergency Provider Student in an Organized Health Care Education/Training Program; PCP Nurse Practitioner Adult Health; Visit Provider Nurse Practitioner
DX: A04.72 Enterocolitis due to Clostridium difficile, not specified as recurrent (principal); N17.9 Acute kidney failure, unspecified; K55.8 Other vascular disorders of intestine; E86.0 Dehydration; J44.9 Chronic obstructive pulmonary disease, unspecified; I10 Essential (primary) hypertension; F10.90 Alcohol use, unspecified, uncomplicated; M19.90 Unspecified osteoarthritis, unspecified site; M81.0 Age-related osteoporosis without current pathological fracture; Z90.49 Acquired absence of other specified parts of digestive tract; Z98.42 Cataract extraction status, left eye; Z98.41 Cataract extraction status, right eye; Z90.710 Acquired absence of both cervix and uterus
CPT/HCPCS: 36415; 74174; 80048; 80053; 81001; 83605; 83690; 83735; 83993; 85025; 85027; 86140; 87040; 87045; 87427; 87449; 87493; 89055; 93005; 94640; 96361; 96365; 96367; 96375; 99285; A9270; J0744; J1836; J7120; Q9967

== ENCOUNTER 2024-11-25 12:05 | Outpatient (CLI) | payer OTHER, SELFPAY ==
[2024-11-25 12:30] LABS: Basophils Percent Auto 0.4 % (0.2-1.2); Eosinophils Percent Auto 0.1 % (0-4.4); Hematocrit 38.6 % (37.0-47.0); Hemoglobin 12.2 g/dL (12.0-15.0); Immature Granulocyte Absolute 0.03 K/mm3 (0.00-0.031); Immature Granulocyte Percent A 0.3 % (0-0.5); Lymphocytes Absolute Auto 0.97 K/mm3 (0.9-3.2); Lymphocytes Percent Auto 10.8 % (18.3-44.2); Mean Corpuscular HGB Conc 31.6 g/dl (32-36); Mean Corpuscular Hemoglobin 29.6 pg (26-34); Mean Corpuscular Volume 93.7 fl (80-100); Mean Platelet Volume 9.5 fl (7.4-10.4); Monocytes Absolute Auto 0.7 K/mm3 (0.1-0.6); Monocytes Percent Auto 7.6 % (2.6-8.5); Neutrophils Absolute Auto 7.3 K/mm3 (1.3-6.7); Neutrophils Percent Auto 80.8 % (45.5-73.1); Platelet Count Result 283 k/mm3 (150-375); Red Blood Count 4.12 M/mm3 (4.2-5.4); Red Cell Distribution Width 13.1 % (11.5-14.5)
[2024-11-25 12:46] LABS: Alanine Aminotransferase 17 U/L (6-35); Albumin Level 4.4 g/dL (3.5-5.1); Alkaline Phosphatase 87 U/L (38-126); Anion Gap 12 mmol/L (4-12); Aspartate Amino Transferase 27 U/L (14-36); Bilirubin,Total 0.8 mg/dL (0.2-1.3); Blood Urea Nitrogen 17 mg/dL (7-17); Carbon Dioxide 25 mmol/L (22-30); Chloride 98 mmol/L (98-107); Estimated Glomerular Filt Rate 57; Glucose 110 mg/dL (65-110); Phosphorus 3.6 mg/dL (2.5-4.5); Potassium 3.6 mmol/L (3.4-5.0); Sodium 135 mmol/L (137-145)
--- OUTSIDE RECORDS SUMMARY | 2024-11-25 12:57 | XMS_ITS | Encounter Summary ---
Author Organization [facility] Address [address] [place] [id number] Care Team Providers Care Dude Ranch Manager Name Role Phone Ting SumnerNP Primary Care Provider [phone] Daphne Ruiz RN Unavailable Molly Poe NP Primary Care Provider [phone] Encounter Details Date Type Department Care Team (Late st Contact Info) Description 02/07/2023 MyChart Message Enc [facility] [address] [place], [place] [id number] [facility], [facility] Provider Air Quality Message Social History Tobacco [...] CDT Gender Identity Female 10/06/2021 5:18 AM [employer] Sexual Orientation Not on file COVID-19 Exposure Response Date Recorded In the last 10 days, have yo u been in contact with someone who was confirmed or suspected to have Coronavirus/COVID-19? No / Unsure 01/23/2023 3:14 PM CDT documented as of this encounter Plan of Treatment Upcoming Encounters Date Type Department Care Team (Late Contact Info) Description 05/20/2025 10:00 AM CDT Office Visit [facility] [address] [place] [address] Danish Guzman MD [facility] [address] [place] [address] documented as of this encounter Visit Diagnoses Not on filedocumented in this encounter Additional Health Concerns Assessment Noted Time PHQ-9 Depression Total Score: 0 10/19/19 22 9:18 AM [employer] documented as of this encounter Care Teams Dude Ranch Manager Relationship Specialty Start Date End Date Ting Sumner APNP [address] [place] [id number] PCP - General NURSE PRACTITIONER 02/26/20 10/28/24 Molly Poe NP [address] [place] [address] PCP - General NURSE PRACTITIONER 10/29/24 Daphne Ruiz, RN [address] [place] [address] Sack Filler (Ambulatory) REGISTERED NURSE 10/28/24 10/28/24 documented as of this encounter
--- OUTSIDE RECORDS SUMMARY | 2024-11-25 12:57 | XMS_ITS | Clinical Summary ---
Author Organization [facility] Address [address] [place] [address] Care Team Providers Care Medical Unit Secretary Name Role Phone Molly Poe NP Primary Care Provider [phone] Allergies Active Allergy Reactions Criticality Noted Date [...] Date Type Department Care Team Description 11/03/2024 [facility] Post Discharge Follow up phone call [facility] [address] [place] [address] Kimber Butt RN 11/03/2024 [facility] Post Discharge Follow up phone call [facility] [address] [place] [address] Ofe Chavira 10/25/2024 7:31 AM CDT - 10/28/2024 4:15 PM CDT Hospital Encounter [facility] [address] [place] [address] Josue Cannon MD Nikolic, Jelena, MD Kheirkhahan, Nazanin, MD Fasick, Victoria Rose, Colitis (Primary Dx); Diarrhea of presumed infectious origin; Lower abdominal pain Discharge Disposition: Discharge to home or self care from Last 3 Months Social History Tobacco Use Types Packs/Day Years Used Date Smoking Tobacco: Former Cigarettes Smokeless Tobacco: Never Tobacco Cessation:Counseling Given: Not Answered [facility] Utilities Answer Date Recorded In the past 12 months has [employer], gas, oil, or water company threatened [...] Never 10/27/2024 How often do you attend faith or lutheran serv ices? Never 10/27/2024 Do you belong to any clubs o r organizations such as faith groups, unions, fraternal or athletic groups, or [...] any time in the past [address] [facility], were you homeless or living in a usp (including now)? No 10/27/2024 Personal Safety Answer Date Recorded Have you ever been in or are you currently in a harmful physical or emotional relationship or is someone making you feel afraid or unsafe? 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 Gender Identity Not on file Sexual Orientation [...] Fin al Result N[facility]O [facility] ([place]) 1 [facility] Department [place] [address] * eGFR (10/28/2024 5:27 AM [...] Final Res ult [facility] ([facility]) 1 [facility] Department [place] [address] * Differential, auto (10/28/2024 5:27 AM CDT) [...] MD LAB BLOOD ORDERABLES Final Res ult [facility] ([facility]) 1 [facility] Department [place] [address] * (ABNORMAL) CBC with auto differential (10/28/2024 [...] Final Res ult [facility] ([place]) 1 [facility] Department [place] [address] * (ABNORMAL) Basic metabolic panel (10/28/2024 5:27 [...] BLOOD ORDERABLES Final Res ult [facility] ([place]) [address] [place] [address] of [place] [address] * (ABNORMAL) Calcium, ionized, whole blood (10/27/2024 11:06 AM CDT) Ca, ionized, bld 4.21(L) 4.50 - 5.10 mg/dL Blood 10/27/2024 11:0 6 AM CDT 10/27/2024 11:12 AM CDT us Yvette Jacob MD LAB BLOOD ORDERABLES Socorro l Result Performing Organization Address [facility] Co de Phone Number [facility] ([place]) 1 [facility] [place] [address] * eGFR (10/27/2024 11:06 AM CDT) eGFR [...] BLOOD ORDERABLES Final Res ult [facility] ([place]) 1 [facility] Department [place] [address] * Differential, auto (10/27/2024 11:06 AM CDT) Neutrophil abs 5.4 1.5 - 6.5 K/cumm Imm gran abs 0.0 0.0 - 0.1 K/cumm [facility] ([place]) Lymphocyte abs 1.7 0.8 - 3.3 K/cumm [facility] ([place]) Monocyte abs 0.5 0.2 - 0.8 K/cumm [facility] ([place]) Eosinophil abs 0.1 0.0 - 0.5 K/cumm [facility] ([place]) Basophil abs 0.0 0.0 - 0.1 K/cumm [facility] ([place]) Neutrophil pct 69.3 % [facility] ([place]) Comment: Interpretive Data Percent cell count reference ranges are not reported, since discordance with absolute values may lead to misinterpretation of CBC data. Current Interpretive Data was last revised on 2017. Imm gran pct 0.3 % [facility] ([place]) Comment: Interpretive Data Percent cell count reference ranges are not reported, since discordance with absolute values may lead to misinterpretation of CBC data. Current Interpretive Data was last revised on 2017. Lymphocyte pct 22.2 % [facility] ([place]) Comment: Interpretive Data Percent cell count reference ranges are not reported, since discordance with absolute values may lead to misinterpretation of CBC data. Current Interpretive Data was last revised on 2017. Monocyte pct 6.6 % [facility] ([place]) Comment: Interpretive Data Percent cell count reference ranges are not reported, since discordance with absolute values may lead to misinterpretation of CBC data. Current Interpretive Data was last revised on 2017. Eosinophil pct 1.3 % [facility] ([place]) Comment: Interpretive Data Percent cell count reference [...] Final Res ult [facility] ([place]) 1 [facility] Department [place] [address] * CBC with auto differential (10/27/2024 11:06 [...] Final Res ult [facility] ([place]) 1 [facility] [place] [address] * (ABNORMAL) Basic metabolic panel (10/27/2024 11:06 [...] 2022. Calcium 8.4(L) 8.5 - 10.3 mg/dL [facility] ([facility]) Blood 10/27/2024 11:0 6 AM CDT 10/27/2024 11:12 AM CDT Mari Alvarez MD LAB BLOOD ORDERABLES Final Res ult [facility] ([place]) 1 [facility] Department [place] [address] * Potassium (10/26/2024 2:01 PM CDT) Potassium, pl 3.7 3.3 - 4.9 mmol/L Blood 10/26/2024 2:01 PM CDT 10/26/2024 2:13 PM CDT Yvette Jacob MD LAB BLOOD ORDERABLES Socorro l Result [facility] ([place]) [address] [facility] [place] [address] * Calcium, ionized, whole blood (10/26/2024 9:37 AM CDT) [facility] Ca, ionized, bld 4.59 4.50 - 5.10 mg/dL Blood 10/26/2024 9:37 AM CDT 10/26/2024 9:40 AM CDT Yvette Jacob MD LAB BLOOD ORDERABLES Socorro l Result [facility] ([place]) [address] [facility] [place] [address] * Magnesium (10/26/2024 8:31 AM CDT) [facility] Magnesium 1.6 1.4 - 2.5 mg/dL Blood 10/26/2024 8:31 AM CDT 10/26/2024 8:43 AM CDT Yvette Jacob MD LAB BLOOD ORDERABLES Socorro l Result [facility] ([place]) [address] [facility] [place] [address] * eGFR (10/26/2024 5:08 AM CDT) [facility] eGFR 63 >=60 mL/min/1. 73 m2 [...] MD LAB BLOOD ORDERABLES Final Res ult [facility] ([place]) 1 [facility] Department [place] [address] * (ABNORMAL) Differential, auto (10/26/2024 5:08 AM [...] BLOOD ORDERABLES Final Res ult [facility] ([place]) 1 [facility] Department [place] [address] * (ABNORMAL) CBC with auto differential (10/26/2024 5:08 AM CDT) WBC 9.0 3.8 - 9.9 K/cumm Hgb 11.4(L) 11.9 - 15.5 g/dL [facility] ([place]) Hct 34.6(L) 35.6 - 45.5 % [facility] ([place]) Plt 266 150 - 400 K/cumm [facility] ([place]) MPV 9.7 9.1 - 12.3 fL [facility] ([place]) RBC 3.74(L) 3.90 - 5.20 M/cumm [facility] MCV 92.5 81.3 - 96.4 fL [facility] MCH 30.5 27.1 - 33.3 pg [facility] ([place]) MCHC 32.9 32.3 - 35.7 g/dL [facility] RDW CV 12.5 11.1 - 14.9 % [facility] ([place]) RDW SD 42.7 35.7 - 48.1 fL [facility] NRBC abs 0.00 0.00 - 0.01 K/cumm [facility] Blood 10/26/2024 5:08 AM CDT 10/26/2024 6:03 AM CDT us Mari Alvarez MD LAB BLOOD ORDERABLES Final Res ult [facility] ([place]) 1 [facility] Department [place] [address] * (ABNORMAL) Basic metabolic panel (10/26/2024 5:08 AM CDT) Sodium 136 135 - 145 mmol/L Comment:breanna alejandro Potassium, pl 2.8(C) 3.3 - 4.9 mmol/L [facility] ([facility] Comment:Critical Result call ed by [email or web address] at 2024-10-26 07:08:16. Result Read Back by breanna bacon mcu Chloride 102 97 - 110 mmol/L [facility] Comment:breanna bacon m[facility] CO2 15(L) 22 - 32 mmol/L [facility] Comment:breanna alejandro Anion gap 20(H) 2 - 15 mmol/L [facility] Comment:breanna bacon mcu BUN 18 6 - 25 mg/dL [facility] Comment:breanna bacon mcu Creatinine 0.96 0.60 - 1.10 mg/dL [facility] ([facility]) Comment:breanna bakeroln [facility] Glucose 61(L) 70 - 199 mg/dL [facility] ([place]) Comment: otonieleliazar jordi [facility] Interpretive Data Fasting glucose >/= 126 [...] Calcium 8.0(L) 8.5 - 10.3 mg/dL [facility] ([place]) Comment:otonielwestleysavannah bacon [facility] Blood 10/26/2024 5:08 AM CDT 10/26/2024 6:03 AM CDT us Mari Alvarez MD LAB BLOOD ORDERABLES Final Res ult [facility] ([place]) 1 [facility] [place] [address] * Sepsis Lactate w/ Reflex (10/25/2024 12:00 PM CDT) Sepsis Lactate 1.3 0.7 - 2.0 mmol/L Blood 10/25/2024 12:0 0 PM CDT 10/25/2024 12:03 PM CDT us Josue Cannon MD LAB BLOOD ORDERABLES Final R esult [facility] ([place]) 1 [facility] [place] [address] * Blood culture Blood Blood (10/25/2024 10:42 AM CDT) Report Final Report: No growth Comment:Testing performed by : [facility], [address] [place]., [address] Blood (Blood) 10/25/2024 10: 42 AM CDT 10/25/2024 4:22 PM CDT Narrative [facility] ([place]) - 10/30/2024 7:00 AM CDT [...] performance characteristics have been verified by the [facility] Microbiology Laboratory. For questions about this culture, contact the Microbiology Laboratory at [phone]. Interpretive data was last revised on 24. Josue Cannon MD LAB MICROBIOLOGY - GENERAL O RDERABLES Final Result [facility] ([place]) 1 [facility] Department [place] [address] * Blood culture Blood Blood (10/25/2024 10:42 AM CDT) Report Final Report: No growth Comment:Testing performed by : [facility], 1 [place] [address] Blood (Blood) 10/25/2024 10: 42 AM CDT [...] performance characteristics have been verified by the [facility] Microbiology Laboratory. For questions about this culture, contact the Microbiology Laboratory at [phone]. Interpretive data was last revised on 24. us Josue Cannon MD LAB MICROBIOLOGY - GENERAL O RDERABLES Final Result [facility] ([place]) 1 [facility] Department [place] [address] * CT Abdomen Pelvis W Contrast (10/25/2024 [...] Sakina Burns D.O. PS: PS Report ID: [id number] Reading Location: [place] [address] Procedure Note Sakina Burns, DO - 10/25/2024 [...] Sakina Burns D.O. PS: PS Report ID: [id number] Reading Location: [place] [address] us Josue Cannon MD IM CT PROCEDURES [...] tendency for uric acid stone formation. Source: [facility] Current Interpretive Data was last revised on [...] MICROBIOLOGY - GENERAL O RDERABLES Final Result [facility] ([place]) 1 [facility] Department [place] [address] * C. difficile testing Stool (10/25/2024 8:07 AM CDT) Pathologist [facility] Result Negative Negative Toxin Result Negative Negative [...] O RDERABLES Final Result Performing Organization Address City/[facility]/ZIP Co de Phone Number [facility] ([place]) 1 [facility] [employer] [place] [address] * (ABNORMAL) eGFR (10/25/2024 8:07 AM CDT) [...] BLOOD ORDERABLES Final R esult [facility] ([place]) 1 [facility] Department [place] [address] * (ABNORMAL) Differential, auto (10/25/2024 8:07 AM CDT) Neutrophil abs 15.1(H) 1.5 - 6.5 K/cumm Imm gran abs 0.1 0.0 - 0.1 K/cumm [facility] ([place]) Lymphocyte abs 1.3 0.8 - 3.3 K/cumm [...] Final R esult [facility] ([place]) [address] [facility] [address] * (ABNORMAL) CBC with auto differential (10/25/2024 8:07 AM CDT) WBC 17.5(H) 3.8 - 9.9 K/cumm Hgb 14.0 11.9 - 15.5 g/dL [facility] ([place]) Hct 41.2 35.6 - 45.5 % [facility] ([place]) Plt 364 150 - 400 K/cumm [facility] ([place]) MPV 9.4 9.1 - 12.3 fL [facility] ([place]) RBC 4.54 3.90 - 5.20 M/cumm [facility] MCV 90.7 81.3 - 96.4 fL [facility] ([place]) MCH 30.8 27.1 - 33.3 pg [facility] MCHC 34.0 32.3 - 35.7 g/dL [facility] RDW CV 12.3 11.1 - 14.9 % [facility] RDW SD 41.1 35.7 - 48.1 fL [facility] ([place]) NRBC abs 0.00 0.00 - 0.01 K/cumm [facility] ([place]) Blood 10/25/2024 8:07 AM CDT 10/25/2024 8:12 AM CDT Josue Cannon MD LAB BLOOD ORDERABLES Final R esult [facility] ([place]) 1 [facility] Department [place] [address] * Stool culture Stool Rectum (10/25/2024 8:07 AM CDT) Pathologist [facility] Direct Specimen Exam Shiga Toxin Testing: Antigen detection assay for Shiga-toxin NEGATIVE for Shiga Toxin 1 and Shiga Toxin 2. Comment:Testing performed by : [facility], 1 [facility], [place]., [address] Report Final Report: No growth of enteric bacterial pathogens [facility] ([place]) Comment:Testing performed by : [facility], [address] [facility], [place]., [address] Stool (Rectum) 10/25/2024 8: 07 AM CDT 10/25/2024 11:43 AM CDT Narrative [facility] ([place]) - 10/30/2024 4:03 PM CDT Testing performed by [facility] Microbiology Laboratory ([phone]). Routine stool cultures include procedures to detect Salmonella, Shigella, Edwardsiella, Aeromonas, Pleisiomonas, Campylobacter, Yersinia, E. coli O157, and Shiga-like toxins. Vibrio is cultured only upon special request. If Vibrio is suspected, please call the laboratory at [phone]. Interpretive data was last updated December 18, 2016. Josue Cannon MD LAB MICROBIOLOGY - GENERAL O RDERABLES Final Result Performing Organization Address [facility] Co de Phone Number [facility] ([place]) 1 [facility] [place] [address] * Lipase (10/25/2024 8:07 AM CDT) Lipase 14 10 - 99 Units/L Blood 10/25/2024 8:07 AM CDT 10/25/2024 8:12 AM CDT Josue Cannon MD LAB BLOOD ORDERABLES Final R esult Performing Organization Address [facility] Co de Phone Number [place]IR[place] [facility] ([place]) 1 [facility] [employer] [place] [address] * (ABNORMAL) Comprehensive metabolic panel (10/25/2024 8:07 AM CDT) Sodium 135 135 - 145 mmol/L Potassium, pl 3.3 3.3 - 4.9 mmol/L [facility] ([place]) Chloride 98 97 - 110 mmol/L [facility] ([place]) CO2 19(L) 22 - 32 mmol/L [facility] ([place]) Anion gap 19(H) 2 - 15 [...] Final R esult [facility] ([place]) 1 [facility] [place] [address] from Last 3 Months Insurance [employer] PPO [facility] ADVANTAGE CHOICE PPO Advance Directives For more information, please contact: [phone] * Full Code (Latest Code Status on File) Date Activated Date Inactivated Comments 10/25/2024 12:49 PM 10/28/2024 8:15 PM Care Teams Medical Unit Secretary Relationship Specialty Start Date End Date Molly Poe NP [facility] [place] [address] PCP - General Nurse Practitioner 10/25/24
--- OUTSIDE RECORDS SUMMARY | 2024-11-25 12:57 | XMS_ITS | Referral Summary ---
Author Organization [facility] Address [address] [place] [address] Care Team Providers Care Aircraft Captain Name Role Phone Lui Molly KRISTINA Primary Care Provider [phone] Encounters Date Type Department Care Team Description 11/03/2024 [facility] Post Discharge Follow up phone call [address] [address] Kimber Butt RN 11/03/2024 [facility] Post Discharge Follow up phone call [address] [address] Ofe Chavira 10/25/2024 7:31 AM CDT - 10/28/2024 4:15 PM CDT Hospital Encounter [address] [address] Josue Cannon MD Nikolic, Jelena, MD [place]ahan, [...] Tobacco: Never Tobacco Cessation:Counseling Given: Not Answered [facility] lifecakeities Answer Date Recorded In the past 12 months has [employer], gas, oil, or water Airpers[employer] threatened to shut off services in your home? No 10/27/2024 Social Connection and Isolation Panel [NHANES] A nswer Date Recorded In a typical week, how many times do you talk on the phone with family, friends, or neighbors? Never 10/27/2024 How often do you get together with friends or re latives? Never 10/27/2024 How often do you attend restorationist or faith serv ices? Never 10/27/2024 Do you belong to any clubs o r organizations such as restorationist groups, unions, fraternal or athletic groups, or [...] any time in the past 12 m the rehabilitation institute, were you homeless or living in a intermediate (including now)? No 10/27/2024 Personal Safety Answer Date Recorded Have you ever been in or are you currently in a harmful physical or emotional relationship or is someone making you feel afraid or unsafe? Denies 10/25/2024 Comments No Sex and Gender Information Value Date Recorded Sex Assigned at Not on file Legal Sex Female 3:26 PM BUSINESS SERVICES COORDINATOR Gender Identity Not on file Sexual Orientation [...] Hct 36.2 35.6 - 45.5 % [facility] Blood 10/28/2024 12:4 5 PM CDT 10/28/2024 12:54 PM CDT Maribeth Arrington DO LAB BLOOD ORDERABLES Fin al Result Performing Organization Address City/[facility]/ZIP Co de Phone Number [facility] ([place]) 1 [facility] Department [place] [address] * eGFR (10/28/2024 5:27 AM CDT) eGFR [...] BLOOD ORDERABLES Final Res ult [facility] ([place]) 1 [facility] [place] [address] * Differential, auto (10/28/2024 5:27 AM CDT) Neutrophil abs 2.8 1.5 - 6.5 K/cumm Imm gran abs 0.0 0.0 - 0.1 K/cumm [facility] ([place]) Lymphocyte abs 1.8 0.8 - 3.3 [...] Res ult [facility] ([place]) 1 [facility] [place] [address] * (ABNORMAL) CBC with auto differential (10/28/2024 [...] Res ult [facility] ([place]) 1 [facility] [place] [address] * (ABNORMAL) Basic metabolic panel (10/28/2024 5:27 AM CDT) Sodium 140 135 - 145 mmol/L Potassium, pl 3.1(L) 3.3 - 4.9 mmol/L [facility] ([place]) Chloride 102 97 - 110 mmol/L [facility] ([place]) CO2 25 22 - 32 mmol/L [facility] ([place]) Anion gap 13 2 - 15 mmol/L [facility] ([place]) BUN 6 6 - 25 mg/dL [facility] ([place]) Creatinine 0.76 0.60 - 1.10 mg/dL [facility] ([place]) Glucose 89 70 - 199 mg/dL [facility] ([place]) Comment: Interpretive Data Fasting glucose >/= [...] 2022. Calcium 8.0(L) 8.5 - 10.3 mg/dL [facility] ([place]) Blood 10/28/2024 5:27 AM CDT 10/28/2024 5:49 AM CDT us Mari Alvarez MD LAB BLOOD ORDERABLES Final Res ult [facility] ([place] 1 [facility] [place] [address] * (ABNORMAL) Calcium, ionized, whole blood (10/27/2024 11:06 AM CDT) Ca, ionized, bld 4.21(L) 4.50 - 5.10 mg/dL Blood 10/27/2024 11:0 6 AM CDT 10/27/2024 11:12 AM CDT us Yvette Jacob MD LAB BLOOD ORDERABLES Socorro l Result [facility] 1 [facility] [place] [address] * eGFR (10/27/2024 11:06 AM CDT) eGFR [...] LAB BLOOD ORDERABLES Final Res ult [facility] ([place] 1 [facility] Department [place] [address] * Differential, auto (10/27/2024 11:06 AM CDT) [...] Res ult [facility] ([place]) 1 [facility] [place] [address] * CBC with auto differential (10/27/2024 11:06 [...] NRBC abs 0.00 0.00 - 0.01 K/cumm [facility] Blood 10/27/2024 11:0 6 AM CDT 10/27/2024 11:12 AM CDT us Mari Alvarez MD LAB BLOOD ORDERABLES Final Res ult [facility] 1 [facility] Department [place] [address] * (ABNORMAL) Basic metabolic panel (10/27/2024 11:06 AM CDT) Sodium 139 135 - 145 mmol/L Potassium, pl 3.3 3.3 - 4.9 mmol/L [facility] Chloride 99 97 - 110 mmol/L [facility] CO2 27 22 - 32 mmol/L [facility] ([place]) Anion gap 14 2 - 15 mmol/L [facility] ([place]) BUN 8 6 - 25 mg/dL [facility] ([place]) Creatinine 0.81 0.60 - 1.10 mg/dL [facility] ([place]) Glucose 98 70 - 199 mg/dL [facility] Comment: Interpretive Data [...] 8.4(L) 8.5 - 10.3 mg/dL [facility] Blood 10/27/2024 11:0 6 AM CDT 10/27/2024 11:12 AM CDT Mari Alvarez MD LAB BLOOD ORDERABLES Final Res ult Performing Organization Address City/[facility]/ZIP Co de Phone Number [facility] 1 [facility] [place] [address] * Potassium (10/26/2024 2:01 PM CDT) Potassium, pl 3.7 3.3 - 4.9 mmol/L Blood 10/26/2024 2:01 PM CDT 10/26/2024 2:13 PM CDT Yvette Jacob MD LAB BLOOD ORDERABLES Socorro l Result Performing Organization Address City/[facility]/ZIP Co de Phone Number [facility] 1 [facility] [place] [address] * Calcium, ionized, whole blood (10/26/2024 9:37 AM CDT) Ca, ionized, bld 4.59 4.50 - 5.10 mg/dL Blood 10/26/2024 9:37 AM CDT 10/26/2024 9:40 AM CDT Yvette Jacob MD LAB BLOOD ORDERABLES Socorro l Result Performing Organization Address City/[facility]/ZIP Co de Phone Number [facility] ([place] 1 [facility] [place] [address] * Magnesium (10/26/2024 8:31 AM CDT) Magnesium 1.6 1.4 - 2.5 mg/dL Blood 10/26/2024 8:31 AM CDT 10/26/2024 8:43 AM CDT us Yvette Jacob MD LAB BLOOD ORDERABLES Socorro l Result Performing Organization Address [facility] Co de Phone Number [facility] ([place]) 1 [facility] [place] [address] * eGFR (10/26/2024 5:08 AM CDT) eGFR [...] Res ult [facility] ([place]) 1 [facility] Department [place] [address] * (ABNORMAL) Differential, auto (10/26/2024 5:08 AM [...] Res ult [facility] ([place] 1 [facility] [place] [address] * (ABNORMAL) CBC with auto differential (10/26/2024 [...] Res ult [facility] ([place]) 1 [facility] [place] [address] * (ABNORMAL) Basic metabolic panel (10/26/2024 5:08 AM CDT) Sodium 136 135 - 145 mmol/L Comment:breanna alejandro Potassium, pl 2.8(C) 3.3 - 4.9 mmol/L [facility] ([place]) Comment:Critical Result call ed by [email or web address] at 2024-10-26 07:08:16. Result Read Back by breanna alejandro Chloride 102 97 - 110 mmol/L [facility] ([place]) Comment:breanna alejandro CO2 15(L) 22 - 32 mmol/L [facility] ([place]) Comment:breanna alejandro Anion gap 20(H) 2 - 15 mmol/L [facility] ([place]) Comment:breanna alejandro BUN 18 6 - 25 mg/dL [facility] ([place]) Comment:breanna alejandro Creatinine 0.96 0.60 - 1.10 mg/dL [facility] ([place]) Comment:breanna alejandro Glucose 61(L) 70 - 199 mg/dL [facility] ([place]) Comment: breanna alejandro Interpretive Data Fasting [...] Calcium 8.0(L) 8.5 - 10.3 mg/dL [facility] ([place]) Comment:breanna alejandro Blood 10/26/2024 5:08 AM CDT 10/26/2024 6:03 AM CDT us Mari Alvarez MD LAB BLOOD ORDERABLES Final Res ult [facility] ([place] 1 [facility] [place] [address] * Sepsis Lactate w/ Reflex (10/25/2024 12:00 PM CDT) Sepsis Lactate 1.3 0.7 - 2.0 mmol/L Blood 10/25/2024 12:0 0 PM CDT 10/25/2024 12:03 PM CDT us Josue Cannon MD LAB BLOOD ORDERABLES Final R esult Performing Organization Address City/[facility]/ZIP Co de Phone Number [facility] ([place]) [address] [place] [address] * Blood culture Blood Blood (10/25/2024 10:42 AM CDT) Report Final Report: No growth Comment:Testing performed by : [facility], [address] [place]., [address] Blood (Blood) 10/25/2024 10: 42 AM CDT 10/25/2024 4:22 PM CDT Narrative [facility] ([place]) - 10/30/2024 7:00 AM CDT Collection->Peripheral 1. [...] performance characteristics have been verified by the [facility]biology [facility]. For questions about this culture, contact the Microbiology Laboratory at [phone]. Interpretive data was last revised on 24. Josue Cannon MD LAB MICROBIOLOGY - GENERAL O RDERABLES Final Result [facility] ([place]) 1 [facility] Department [place] [address] * Blood culture Blood Blood (10/25/2024 10:42 AM CDT) Report Final Report: No growth Comment:Testing performed by : [facility], 1 [place]., [address] Blood (Blood) 10/25/2024 10: 42 AM CDT [...] performance characteristics have been verified by the [facility]. For questions about this culture, contact the Microbiology Laboratory at [phone]. Interpretive data was last revised on 24. us Josue Cannon MD LAB MICROBIOLOGY - GENERAL O RDERABLES Final Result [facility] [place] 1 [facility] Department [place] [address] * CT Abdomen Pelvis W Contrast (10/25/2024 [...] Sakina Burns D.O. PS: PS Report ID: [id number] Reading Location: [id number] Procedure Note Sakina Burns DO - 10/25/2024 [...] Sakina Burns D.O. PS: PS Report ID: [id number] Reading Location: [place] [address] Josue Cannon MD IMG CT PROCEDURES Final [...] for uric acid stone formation. Source: [employer] Current Interpretive Data was last revised on [...] O RDERABLES Final Result Performing Organization Address City/[facility] Co de Phone Number [facility] ([place]) [address] [place] [address] * C. difficile testing Stool (10/25/2024 8:07 AM CDT) [facility] Result Negative Negative Toxin Result Negative Negative [facility] [place]) C. diff result Negative, free toxin Negative, free toxin [facility] ([place]) C. diff interp Negative for toxigenic Clostridioides (Clostridium) difficile. Analysis was performed using a glutamate dehydrogenase antigen detection assay combined with a C. difficile toxin detection assay. [facility] ([place]) Stool 10/25/2024 8:07 AM CDT 10/25/2024 8:12 AM CDT Josue Cannon MD LAB MICROBIOLOGY - GENERAL O RDERABLES Final Result Performing Organization Address City/[facility]/ZIP Co de Phone Number [facility] ([place]) 1 [facility] [place] [address] * (ABNORMAL) eGFR (10/25/2024 8:07 AM CDT) [...] MD LAB BLOOD ORDERABLES Final R esult [facility] 1 [facility] [place] [address] * (ABNORMAL) Differential, auto (10/25/2024 8:07 AM [...] R esult [facility] ([place]) 1 [facility] Department of Laboratories [place], [place] [address] * (ABNORMAL) CBC with auto differential (10/25/2024 [...] 12.3 11.1 - 14.9 % [facility] ([place]) RDW SD 41.1 35.7 - 48.1 fL [facility] ([place]) NRBC abs 0.00 0.00 - 0.01 K/cumm [facility] ([place]) Blood 10/25/2024 8:07 AM CDT 10/25/2024 8:12 AM CDT Josue Cannon MD LAB BLOOD ORDERABLES Final R esult Performing Organization Address [facility] Co de Phone Number [facility] ([place]) 1 [facility] [place] [address] * Stool culture Stool Rectum (10/25/2024 8:07 AM CDT) Direct Specimen Exam Shiga Toxin Testing: Antigen detection assay for Shiga-toxin NEGATIVE for Shiga Toxin 1 and Shiga Toxin 2. Comment:Testing performed by : [facility], [address] [place]., [address] Report Final Report: No growth of enteric bacterial pathogens [facility] ([place]) Comment:Testing performed by : [facility], [address] [place] [address]., [id number] Stool (Rectum) 10/25/2024 8: 07 AM CDT 10/25/2024 11:43 AM CDT Narrative [facility] ([place]) - 10/30/2024 4:03 PM CDT Testing performed by [facility] ([phone]). Routine stool cultures include procedures to detect Salmonella, Shigella, Edwardsiella, Aeromonas, Pleisiomonas, Campylobacter, Yersinia, E. coli O157, and Shiga-like toxins. Vibrio is cultured only upon special request. If Vibrio is suspected, please call the laboratory at [phone]. Interpretive data was last updated December 18, 2016. Josue Cannon MD LAB MICROBIOLOGY - GENERAL O RDERABLES Final Result Performing Organization Address [facility]/State/ZIP Co de Phone Number [facility] ([place]) 1 [facility] [place] [address] * Lipase (10/25/2024 8:07 AM CDT) Lipase 14 10 - 99 Units/L Blood 10/25/2024 8:07 AM CDT 10/25/2024 8:12 AM CDT Josue Cannon MD LAB BLOOD ORDERABLES Final R esult [facility] ([place]) 1 [facility] [place] [address] * (ABNORMAL) Comprehensive metabolic panel (10/25/2024 8:07 [...] R esult [facility] ([place]) 1 [facility] [place] [address] from Last 3 Months Insurance [employer] [place] [address] Advance Directives For more information, please contact: [phone] * Full Code (Latest Code Status on File) Date Activated Date Inactivated Comments 10/25/2024 12:49 PM 10/28/2024 8:15 PM Care Teams Aircraft Captain Relationship Specialty Start Date End Date Molly Poe NP [facility] [place] [address] PCP - General Nurse Practitioner 10/25/24
--- OUTSIDE RECORDS SUMMARY | 2024-11-25 12:57 | XMS_ITS | Encounter Summary ---
Author Organization [facility] Address [facility]3 [facility] [place] [address] Care Team Providers Care Flight Control Manager Name Role Phone Unavailable Primary Care Provider Unavailabl e Encounter Details Date Type Department Care Team (Late st Contact Info) Description 10/10/2024 Lab Requisition [facility] DermPath Lab [address] [place] [address] Fredy Rhodes MD [facility] [address] [place] [phone] Neoplasm of uncertain behavior of skin Social History Tobacco Use Types Packs/Day Years Used Date Smoking Tobacco: Every Day Cigarettes Smokeless Tobacco: Never Alcohol Use Standard Drinks/Week Comments Not Asked 0 (1 standard drink = 0.6 oz pur e alcohol) Comments No Sex and Gender Information Value Date Recorded Sex Assigned at Not on file Legal Sex Female 2:19 PM CDT Gender Identity Not on file Sexual Orientation Not on file documented as of this encounter Plan of Treatment Not on file documented as of this encounter Procedures Procedure Name Priority Date/Time Associated Diagnosis Comments DERMATOPATHOLOGY Routine 10/10/2024 12:0 0 AM WEATHERIZATION INSTALLER Neoplasm of uncertain behavior of skin documented in this encounter Results * DERMATOPATHOLOGY (10/10/2024 12:00 AM WEATHERIZATION INSTALLER) Case Report Dermatopathology Report Case: [id number] Authorizing Provider: Fredy Rhodes MD Collected: 10/10/2024 12:00 AM Ordering Location: [facility] - Received: 10/13/2024 04:17 PM DermPath Lab Pathologist: Antonella Ag MD Specimens: A) - Skin, right chin B) - Skin, left upper arm 5:[address] [facility] DERMATOPATHOLOGY LABORATORY Final Diagnosis Specimen A. SKIN, right chin: BASAL CELL CARCINOMA, NODULAR TYPE (C44.319) Specimen B. 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 DERMATOPATHOLOGY LABORATORY Clinical History A: BCC B: SCC vs Actinic Keratosis 5:[address] [facility] DERMATOPATHOLOGY LABORATORY Gross Description Specimen [...] measuring 6x4x2 mm. Jar 0. 5:[address] [facility] DERMATOPATHOLOGY LABORATORY Microscopic Description Specimen A. SKIN, right chin: Within the dermis there are aggregates of basaloid cells with a high nuclear to cytoplasmic ratio and peripheral palisading. Specimen B. SKIN, left upper arm: The epidermis shows parakeratosis, full thickness disorderly maturation of keratinocytes, mitoses at different levels, and dyskeratotic cells. There is a column of marked compact hyperkeratosis. 5:[address] [facility] DERMATOPATHOLOGY LABORATORY Disclaimer An external and internal positive and negative controls are appropriate for the histochemical, immunohistochemical and immunofluorescence stain(s) in this case (if any), except where stated explicitly. The performance characteristics of the stain(s) cited in this report were developed and its performance characteristic determined by the Dermatopathology Laboratory at [facility], directed by Dr. Silvana Kramer. These tests need not be, and therefore are not, approved by the [place] Food and Drug Administration. The tests are used for clinical purposes. Billing Codes Specimen Charges Stain Charges 05027 31302 1 1 03/05/202 5 5:11 PM WEATHERIZATION INSTALLER DERMATOPATHOLOGY LABORATORY Embedded Images 5:11 PM WEATHERIZATION INSTALLER DERMATOPATHOLOGY LABORATORY Pathology/Cytology TISSUE SPECIMEN FROM SKIN / Unknown 10/10/2024 10/13/2024 4:17 PM WEATHERIZATION INSTALLER Miscellaneous samples (specimen) TISSUE SPECIMEN FROM SKIN / Unknown 10/10/2024 10/13/2024 4:17 PM WEATHERIZATION INSTALLER Fredy Rhodes MD LAB - PATHOLOGY/CYTOLOGY OLAMIDEE GABBIE Final Result DERMATOPATHOLOGY LABORATORY [facility] - Department of Dermatology [facility] [address] [place] [address], [address] [phone] documented in this encounter Visit Diagnoses Diagnosis Neoplasm of uncertain behavior of skin documented in this encounter
--- OUTSIDE RECORDS SUMMARY | 2024-11-25 12:57 | XMS_ITS | CONTINUITY OF CARE DOCUMENT ---
Author Name zaria, zaria Address Unknown Organization [facility] Address [address] [facility] [address] [place] [address] Phone [phone] Care Team Providers Care Plant Associate Name Role Phone Nicko DODGE, Chito Unavailable [...] In-person encounter Office Visit Chito Maharaj MD [facility] Cardiology examinationEssential Hypertension-nml stress nuc and echo - In-person encounter Office Visit Chito Maharaj MD [facility] COPDClaudicationEssential Hypertension-nml stress nuc and echoHyperlipidemiaTOBACCO ABUSE QUIT VITAL SIGNS Date Observation Value Provider Body Mass Index (Ratio) 24.87 kg/m2 Tenzin Maharaj MD blood pressure, diastolic 80 mm[Hg] Jonas Paris blood pressure, systolic 138 mm[Hg] Sweta Paris oxygen saturation, oximetry 97 % Jaylin [place] respiratory rate E&M 16 /min Jaylin Paris pulse rate 68 /min [place] Paris weight E&M 136 [lb_av] Jaylin Paris blood pressure, resting Yes Kaylah painter [place] height E&M 62 [in_i] Jaylin [place] Body Mass Index (Ratio) 23.96 kg/m2 Tenzin [...] of grandchildren Chito Maharaj MD K yimi [place] smoking, year quit 2018 Jaylin Hannah ngregina smoking history, total pack/day 1/2 PPD [facility] cigarette use yes Jaylin Paris smoking status Former smoker Jaylin Zapata am social history reviewed E&M revi ewed - no changes required Chito Maharaj MD social history E&M S moking History: Dunia yoder is a former smoker. Chito Maharaj MD smoking history, total pack/day 1/2 PPD Jultia Chava smoking, year quit 2018 Julita garcia cigarette use yes Julita Wilson smoking status Former smoker Julita aparicio FAMILY HISTORY Family Member Condition Full Sister Family History of Di abetes: Full Sister Family History of Co ronary Artery Disease: Full Sister Family History of Di abetes: INSURANCE PROVIDERS Payer name Policy type / Coverage type [place] red democrat ID [facility] Other [id number] ADVANCE DIRECTIVES Name Date DISCUSSED - NO [...]
--- OUTSIDE RECORDS SUMMARY | 2024-11-25 12:57 | XMS_ITS | Clinical Summary ---
Author Organization [facility] [place] Address [address] [place] [address] Care Team Providers Care Milk Pickup Truck Driver Name Role Phone Unavailable Primary Care Provider Unavailabl e Source Comments [facility],non-owned Affiliates and Associated Physician Practices is amultiple site organization consisting of ambulatory clinics and hospital sitesin [place], [place], [place] and [place]. This disclosure is being madepursuant to the Care Everywhere program and may not contain all information available regarding this patient. Last updated 18.[facility] [place] Allergies Active Allergy Reactions Criticality Noted Date Comments Tramadol 11/11/2012 Medications * Be aware that medications may not be up to date on this document. Alwaysverify current medications with the patient. fluticasone-salm eterol (ADVAIR DISKUS) 250-50 MCG/DOSE inhaler Act marshal DICLOFENAC SODIUM OP 2 times daily. Active triamterene-hydr ochlorothiazide (MAXZIDE-25) 37.5-25 MG tablet Active simvastatin (ZOCOR) 20 MG tablet Active Active Problems Problem Noted Date Diagnosed Date Degeneration of cervical intervertebral disc 12/2012 HTN (hypertension) 11/11/2012 Hyperlipidemia 11/11/2012 Neck pain 11/11/2012 Encounters Date Type Department Care Team Description 10/10/2024 Lab Requisition [facility] - DermPath Lab [address] [place] [id number] Fredy Rhodes MD Neoplasm of uncertain behavior [...] VACCINE ( - 2023-2 5 season) 2024 DEPRESSION SCREENING 08/13/2024 INFLUENZA VACCINE (Season Ended) 2025 Respiratory Syncytial Virus (RSV) Vaccine Pt: or [...] Comments DERMATOPATHOLOGY Routine 10/10/2024 12:0 0 AM ASSOCIATE TRAINER Neoplasm of uncertain behavior of skin from Last 3 Months Results * DERMATOPATHOLOGY (10/10/2024 12:00 AM ASSOCIATE TRAINER) Case Report Dermatopathology Report Case: [id number] Authorizing Provider: Fredy Rhodes MD Collected: 10/10/2024 12:00 AM Ordering Location: [facility] - Received: 10/13/2024 04:17 PM DermPath Lab Pathologist: Antonella Ag MD Specimens: A) - Skin, right chin B) - Skin, left upper arm 5:11 PM [facility] DERMATOPATHOLOGY LABORATORY Final Diagnosis Specimen A. SKIN, right chin: BASAL CELL CARCINOMA, NODULAR TYPE (C44.319) Specimen B. 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 Jar 0. 5:11 PM [facility] DERMATOPATHOLOGY LABORATORY Microscopic Description Specimen A. SKIN, right chin: Within the dermis there are aggregates of basaloid cells with a high nuclear to cytoplasmic ratio and peripheral palisading. Specimen B. SKIN, left upper arm: The epidermis shows parakeratosis, full thickness disorderly maturation of keratinocytes, mitoses at different levels, and dyskeratotic cells. There is a column of marked compact hyperkeratosis. 5:11 PM [facility] DERMATOPATHOLOGY LABORATORY Disclaimer An external and internal positive and negative controls are appropriate for the histochemical, immunohistochemical and immunofluorescence stain(s) in this case (if any), except where stated explicitly. The performance characteristics of the stain(s) cited in this report were developed and its performance characteristic determined by the Dermatopathology Laboratory at [facility], directed by Dr. Silvana Kramer. These tests need not be, and therefore are not, approved by the [place] Food and Drug Administration. The tests are used for clinical purposes. Billing Codes Specimen Charges Stain Charges 11035 29441 1 1 5 5:11 PM ASSOCIATE TRAINER DERMATOPATHOLOGY LABORATORY Embedded Images 5:11 PM ASSOCIATE TRAINER DERMATOPATHOLOGY LABORATORY Pathology/Cytology TISSUE SPECIMEN FROM SKIN / Unknown 10/10/2024 10/13/2024 4:17 PM ASSOCIATE TRAINER Miscellaneous samples (specimen) TISSUE SPECIMEN FROM SKIN / Unknown 10/10/2024 10/13/2024 4:17 PM ASSOCIATE TRAINER Fredy Rhodes MD LAB - PATHOLOGY/CYTOLOGY [facility] CARTWRIGHT Final Result DERMATOPATHOLOGY LABORATORY [facility] - Department of Dermatology [address] [phone] from Last 3 Months Insurance [employer] MEDIC[employer] ADV PPO [facility] Care Address: [address] [address] SELF PAY NO INSURANCE Member Subscriber Plan / Payer (Ef fective for All Dates) Name:Milagros Radha Member ID:Not on file Relation to Subscriber:Not on file Name:MILAGROSMARVAA Subscriber ID:Not on file (Home) Address: [address] [place] [id number] Payer ID:Not on file Group ID:Not on file Type:Self Pay Address: [place], [place]
--- OUTSIDE RECORDS SUMMARY | 2024-11-25 13:09 | XMS_ITS | CONTINUITY OF CARE DOCUMENT ---
Author Name zaria, zaria Address Unknown Organization [facility] Address [address] [place] [address] Phone [phone] Care Team Providers Care Frame Runner Name Role Phone Nicko DODGE, Chito Unavailable [phone] TIMUR BANDA Unavailable [phone] TIMUR BANDA Unavailable PROBLEMS Condition Status Date [...] In-person encounter Office Visit Chito Maharaj MD [facility] Cardiology examinationEssential Hypertension-nml stress nuc and echo - In-person encounter Office Visit Chito Maharaj MD [facility] COPDClaudicationEssential Hypertension-nml stress nuc and echoHyperlipidemiaTOBACCO ABUSE QUIT VITAL SIGNS Date Observation Value Provider Body Mass Index (Ratio) 24.87 kg/m2 Tenzin Maharaj MD blood pressure, diastolic 80 mm[Hg] Jonas Paris blood pressure, systolic 138 mm[Hg] Sweta Paris oxygen saturation, oximetry 97 % Jaylin [place] respiratory rate E&M 16 /min Jaylin [place] pulse rate 68 /min Oilton Paris weight E&M 136 [lb_av] Jaylin Paris blood pressure, resting Yes Kaylah painter [place] height E&M 62 [in_i] Jaylin [place] Body Mass Index (Ratio) 23.96 kg/m2 Tenzin [...] of grandchildren Chito Maharaj MD K yimi [place] smoking, year quit 2018 Jaylin Hannah ngregina smoking history, total pack/day 1/2 PPD [facility] cigarette use yes Jaylin Paris smoking [...] Payer name Policy type / Coverage type [place] red green party ID AETNA [facility] Other [id number] ADVANCE DIRECTIVES Name Date DISCUSSED - NO [...]
== END 2024-11-25 12:06 | disposition home or self-care (01) ==
PROVIDERS: PCP Nurse Practitioner Adult Health; Visit Provider Internal Medicine Gastroenterology
DX: E87.5 Hyperkalemia (principal); N17.9 Acute kidney failure, unspecified; A49.8 Other bacterial infections of unspecified site; A04.72 Enterocolitis due to Clostridium difficile, not specified as recurrent
CPT/HCPCS: 36415; 80053; 84100; 85025

== ENCOUNTER 2024-11-26 08:17 | Outpatient (CLI) | payer OTHER, SELFPAY ==
--- OUTSIDE RECORDS SUMMARY | 2024-11-26 08:31 | XMS_ITS | CONTINUITY OF CARE DOCUMENT ---
Author Name zaria, zaria Address Unknown Organization [facility] Address [address] [place] [address] Phone [phone] Care Team Providers Care Heavy Equipment Sales Manager Name Role Phone Nicko DODGE, Chito Unavailable [phone] TIMUR BANDA Unavailable [phone] TIMUR BANDA Unavailable PROBLEMS Condition Status Date [...] In-person encounter Office Visit Chito Maharaj MD [place] [facility] Cardiology examinationEssential Hypertension-nml stress nuc and echo - In-person encounter Office Visit Chito Maharaj MD [facility] COPDClaudicationEssential Hypertension-nml stress nuc and echoHyperlipidemiaTOBACCO ABUSE QUIT VITAL SIGNS Date Observation Value Provider Body Mass Index (Ratio) 24.87 kg/m2 Tenzin Maharaj MD blood pressure, diastolic 80 mm[Hg] Jonas Paris blood pressure, systolic 138 mm[Hg] Sweta [place] oxygen saturation, oximetry 97 % Jaylin [employer] respiratory rate E&M 16 /min Jaylin Paris pulse rate 68 /min Hulett Paris weight E&M 136 [lb_av] Jaylin Paris blood pressure, resting Yes Kaylah painter [employer] height E&M 62 [in_i] Jaylin [employer] [place] Body Mass Index (Ratio) 23.96 kg/m2 Tenzin Maharaj MD blood pressure, cuff size regular Cy rosita Larsen blood pressure, diastolic 80 mm[Hg] Amilcar Larsen blood pressure, systolic 128 mm[Hg] Beth Larsen oxygen saturation, oximetry 98 % Julita Larsen respiratory rate E&M 16 /min Julita Larsen pulse rate 83 /min Julitafrnaces Gutiérrezbetzaida maria height E&M 62 [in_i] Julitafrances [...] of grandchildren Chito Maharaj MD K yimi [employer] smoking, year quit 2018 Jaylin Hannah ngregina smoking history, total pack/day 1/2 PPD [facility] cigarette use yes Jaylin Paris [...] Payer name Policy type / Coverage type [place] red democrat ID AETNA [facility] Other [id number] ADVANCE DIRECTIVES Name Date DISCUSSED - NO [...]
--- OUTSIDE RECORDS SUMMARY | 2024-11-26 08:31 | XMS_ITS | Clinical Summary ---
Author Organization [facility] [employer] Address [address] [place] [address] Care Team Providers Care County Manager Name Role Phone Unavailable Primary Care Provider Unavailabl e Source Comments [facility],non-owned Affiliates and Associated Physician Practices is amultiple site organization consisting of ambulatory clinics and hospital sitesin [place], [place], [place] and [place]. This disclosure is being madepursuant to the Care Everywhere program and may not contain all information available regarding this patient. Last updated 18.[facility] [employer] Allergies Active Allergy Reactions Criticality Noted Date [...] Department Care Team Description 10/10/2024 Lab Requisition [facility] - DermPath Lab [address] [place] [id number] Fredy Rhodes MD Neoplasm of uncertain behavior [...] Comments DERMATOPATHOLOGY Routine 10/10/2024 12:0 0 AM LPN Neoplasm of uncertain behavior of skin from Last 3 Months Results * DERMATOPATHOLOGY (10/10/2024 12:00 AM LPN) Case Report Dermatopathology Report Case: [id number] Authorizing Provider: Fredy Rhodes MD Collected: 10/10/2024 12:00 AM Ordering Location: [facility] - Received: 10/13/2024 04:17 PM DermPath Lab Pathologist: Antonella Ag MD Specimens: A) - Skin, right chin B) - Skin, left upper arm 5:11 PM [facility] DERMATOPATHOLOGY LABORATORY Final Diagnosis Specimen A. SKIN, right chin: BASAL CELL CARCINOMA, NODULAR TYPE (C44.319) Specimen B. 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 Jar 0. 5:11 PM [facility] DERMATOPATHOLOGY LABORATORY Microscopic Description Specimen [...] of marked compact hyperkeratosis. 5:11 PM [facility] DERMATOPATHOLOGY LABORATORY Disclaimer An external and internal positive and negative controls are appropriate for the histochemical, immunohistochemical and immunofluorescence stain(s) in this case (if any), except where stated explicitly. The performance characteristics of the stain(s) cited in this report were developed and its performance characteristic determined by the Dermatopathology Laboratory at [facility], directed by Dr. Silvana Kramer. These tests need not be, and therefore are not, approved by the [place] Food and Drug Administration. The tests are used for clinical purposes. Billing Codes Specimen Charges Stain Charges 02339 [id number] 1 1 5 5:11 PM LPN DERMATOPATHOLOGY LABORATORY Embedded Images 5:11 PM LPN DERMATOPATHOLOGY LABORATORY Pathology/Cytology TISSUE SPECIMEN FROM SKIN / Unknown 10/10/2024 10/13/2024 4:17 PM LPN Miscellaneous samples (specimen) TISSUE SPECIMEN FROM SKIN / Unknown 10/10/2024 10/13/2024 4:17 PM LPN Fredy Rhodes MD LAB - PATHOLOGY/CYTOLOGY JOSEE CARTWRIGHT Final Result DERMATOPATHOLOGY LABORATORY [facility] - Department of Dermatology [address] [phone] from Last 3 Months Insurance [employer] MEDIC[employer] ADV PPO [facility] Care Address: [address] [address] SELF PAY NO INSURANCE Member Subscriber Plan / Payer (Ef fective for All Dates) Name:Milagros Radha Member ID:Not on file Relation to Subscriber:Not on file Name:MILAGROSMARVAA Subscriber ID:Not on file (Home) Address: [address] [place] [phone] Payer ID:Not on file Group ID:Not on file Type:Self Pay Address: [place], [place]
--- OUTSIDE RECORDS SUMMARY | 2024-11-26 08:31 | XMS_ITS | Referral Summary ---
Author Organization [facility] Address [address] [place] [address] Care Team Providers Care Insulator Helper Name Role Phone Lui Molly KRISTINA Primary Care Provider [phone] Encounters Date Type Department Care Team Description 11/03/2024 [facility] Post Discharge Follow up phone call [address] [address] Kimber Butt RN 11/03/2024 [facility] Post Discharge Follow up phone call [address] [address] Ofe Chavira 10/25/2024 7:31 AM CDT - 10/28/2024 4:15 PM CDT Hospital Encounter [address] [address] Josue Cannon MD Nikolic, Jelena, MD [place]he[place]hahan, [...] Never Tobacco Cessation:Counseling Given: Not Answered [facility] [employer] Answer Date Recorded In the past 12 months has [employer], gas, oil, or water [employer] threatened to shut off services in your home? No 10/27/2024 Social Connection and Isolation Panel [NHANES] A nswer Date Recorded In a typical week, how many times do you talk on the phone with family, friends, or neighbors? Never 10/27/2024 How often do you get together with friends or re latives? Never 10/27/2024 How often do you attend episcopal or yazdanism serv ices? Never 10/27/2024 Do you belong to any clubs o r organizations such as episcopal groups, unions, fraternal or athletic groups, or [...] any time in the past 12 m [facility], were you homeless or living in a [place] health [place] facility (including now)? No 10/27/2024 Personal Safety Answer Date Recorded Have you ever been in or are you currently in a harmful physical or emotional relationship or is someone making you feel afraid or unsafe? Denies 10/25/2024 Comments No Sex and Gender Information Value Date Recorded Sex Assigned at Not on file Legal Sex Female 3:26 PM [employer] Gender Identity Not on file Sexual Orientation [...] Hct 36.2 35.6 - 45.5 % [facility] [place] Blood 10/28/2024 12:4 5 PM CDT 10/28/2024 12:54 PM CDT Maribeth Arrington DO LAB BLOOD ORDERABLES Fin al Result Performing Organization Address City/[facility]/ZIP Co de Phone Number [facility] ([place]) [address] [place] [address] * eGFR (10/28/2024 5:27 AM CDT) eGFR [...] BLOOD ORDERABLES Final Res ult [facility] ([place]) [address] [place] [address] * Differential, auto (10/28/2024 5:27 AM CDT) Neutrophil abs 2.8 1.5 - 6.5 K/cumm Imm gran abs 0.0 0.0 - 0.1 K/cumm [facility] ([place]) Lymphocyte abs 1.8 0.8 [...] Res ult [facility] ([place]) [address] [place] [address] * (ABNORMAL) CBC with auto differential (10/28/2024 [...] Res ult [facility] ([place]) [address] [place] [address] * (ABNORMAL) Basic metabolic panel (10/28/2024 5:27 AM CDT) Sodium 140 135 - 145 mmol/L Potassium, pl 3.1(L) 3.3 - 4.9 mmol/L [facility] ([place]) Chloride 102 97 - 110 mmol/L [facility] ([place]) CO2 25 22 - 32 mmol/L [facility] ([place]) Anion gap 13 2 - 15 mmol/L [facility] ([place]) BUN 6 6 - 25 mg/dL [facility] ([place]) Creatinine 0.76 0.60 - 1.10 mg/dL [facility] ([place]) Glucose 89 70 - 199 mg/dL [facility] ([place]) Comment: Interpretive Data Fasting glucose [...] 2022. Calcium 8.0(L) 8.5 - 10.3 mg/dL [facility] ([place] Blood 10/28/2024 5:27 AM CDT 10/28/2024 5:49 AM CDT us Mari Alvarez MD LAB BLOOD ORDERABLES Final Res ult [facility] ([place] [address] [place] [address] * (ABNORMAL) Calcium, ionized, whole blood (10/27/2024 11:06 AM CDT) Ca, ionized, bld 4.21(L) 4.50 - 5.10 mg/dL Blood 10/27/2024 11:0 6 AM CDT 10/27/2024 11:12 AM CDT us Yvette Jacob MD LAB BLOOD ORDERABLES Socorro l Result [facility] [address] [place] [address] * eGFR (10/27/2024 11:06 AM CDT) eGFR [...] LAB BLOOD ORDERABLES Final Res ult [facility] [place] [address] [place] [address] * Differential, auto (10/27/2024 11:06 AM CDT) [...] Res ult [facility] ([place]) [address] [place] [address] * CBC with auto differential (10/27/2024 11:06 [...] NRBC abs 0.00 0.00 - 0.01 K/cumm [facility] Blood 10/27/2024 11:0 6 AM CDT 10/27/2024 11:12 AM CDT us Mari Alvarez MD LAB BLOOD ORDERABLES Final Res ult [facility] [address] [place] [address] * (ABNORMAL) Basic metabolic panel (10/27/2024 11:06 AM CDT) Sodium 139 135 - 145 mmol/L Potassium, pl 3.3 3.3 - 4.9 mmol/L [facility] Chloride 99 97 - 110 mmol/L [facility] CO2 27 22 - 32 mmol/L [facility] ([place]) Anion gap 14 2 - 15 mmol/L [facility] ([place]) BUN 8 6 - 25 mg/dL [facility] ([place]) Creatinine 0.81 0.60 - 1.10 mg/dL [facility] ([place]) Glucose 98 70 - 199 mg/dL [facility] ([place] Comment: Interpretive Data Fasting glucose [...] 8.4(L) 8.5 - 10.3 mg/dL [facility] [place]) Blood 10/27/2024 11:0 6 AM CDT 10/27/2024 11:12 AM CDT Mari Alvarez MD LAB BLOOD ORDERABLES Final Res ult Performing Organization Address City/[facility]/ZIP Co de Phone Number [facility] [address] [place] [address] * Potassium (10/26/2024 2:01 PM CDT) Potassium, pl 3.7 3.3 - 4.9 mmol/L Blood 10/26/2024 2:01 PM CDT 10/26/2024 2:13 PM CDT Yvette Jacob MD LAB BLOOD ORDERABLES Socorro l Result Performing Organization Address City/[facility]/ZIP Co de Phone Number [facility] [address] [facility] [place] [address] * Calcium, ionized, whole blood (10/26/2024 9:37 AM CDT) Ca, ionized, bld 4.59 4.50 - 5.10 mg/dL Blood 10/26/2024 9:37 AM CDT 10/26/2024 9:40 AM CDT Yvette Jacob MD LAB BLOOD ORDERABLES Socorro l Result Performing Organization Address City/[facility]/ZIP Co de Phone Number [facility] ([place] [address] [facility] [place] [address] * Magnesium (10/26/2024 8:31 AM CDT) Magnesium 1.6 1.4 - 2.5 mg/dL Blood 10/26/2024 8:31 AM CDT 10/26/2024 8:43 AM CDT us Yvette Jacob MD LAB BLOOD ORDERABLES Socorro l Result Performing Organization Address [facility] Co de Phone Number [facility] ([place]) [address] [place] [address] * eGFR (10/26/2024 5:08 AM CDT) eGFR [...] Res ult [facility] ([place]) [address] [facility] [place] [address] * (ABNORMAL) Differential, auto (10/26/2024 5:08 AM [...] Res ult [facility] ([place]) [address] [facility] [place] [address] * (ABNORMAL) CBC with auto differential (10/26/2024 [...] Res ult [facility] ([place]) [address] [place] [address] * (ABNORMAL) Basic metabolic panel (10/26/2024 5:08 AM CDT) Sodium 136 135 - 145 mmol/L Comment:breanna alejandro Potassium, pl 2.8(C) 3.3 - 4.9 mmol/L [facility] ([place]) Comment:Critical Result call ed by [email or web address] at 2024-10-26 07:08:16. Result Read Back by breanna alejandro Chloride 102 97 - 110 mmol/L [facility] ([place]) Comment:breanna alejandro CO2 15(L) 22 - 32 mmol/L [facility] ([place]) Comment:breanna alejandro Anion gap 20(H) 2 - 15 mmol/L [facility] ([place]) Comment:breanna alejandro BUN 18 6 - 25 mg/dL [facility] ([place]) Comment:breanna alejandro Creatinine 0.96 0.60 - 1.10 mg/dL [facility] ([place]) Comment:breanna alejandro Glucose 61(L) 70 - 199 mg/dL [facility] ([place]) Comment: breanna alejandro Interpretive [...] Calcium 8.0(L) 8.5 - 10.3 mg/dL [facility] ([place]) Comment:breanna alejandro Blood 10/26/2024 5:08 AM CDT 10/26/2024 6:03 AM CDT us Mari Alvarez MD LAB BLOOD ORDERABLES Final Res ult [facility] ([place] [address] [place] [address] * Sepsis Lactate w/ Reflex (10/25/2024 12:00 PM CDT) Sepsis Lactate 1.3 0.7 - 2.0 mmol/L Blood 10/25/2024 12:0 0 PM CDT 10/25/2024 12:03 PM CDT us Josue Cannon MD LAB BLOOD ORDERABLES Final R esult Performing Organization Address City/[facility]/ZIP Co de Phone Number [facility] ([place]) [address] [place] [address] * Blood culture Blood Blood (10/25/2024 10:42 AM CDT) Report Final Report: No growth Comment:Testing performed by : [facility], [address] [place]., [address] Blood (Blood) 10/25/2024 10: 42 AM CDT 10/25/2024 4:22 PM CDT Narrative [facility] ([place]) - 10/30/2024 7:00 AM CDT Collection->Peripheral 1. [...] performance characteristics have been verified by the [facility]. For questions about this culture, contact the Microbiology Laboratory at [phone]. Interpretive data was last revised on 24. Josue Cannon MD LAB MICROBIOLOGY - GENERAL O RDERABLES Final Result [facility] ([place]) [address] [place] [address] * Blood culture Blood Blood (10/25/2024 10:42 AM CDT) Report Final Report: No growth Comment:Testing performed by : [facility], [address] [place] [address] Blood (Blood) 10/25/2024 10: 42 AM CDT [...] performance characteristics have been verified by the [facility]. For questions about this culture, contact the Microbiology Laboratory at [phone]. Interpretive data was last revised on 24. us Josue Cannon MD LAB MICROBIOLOGY - GENERAL O RDERABLES Final Result [facility] [place] [address] [place] [address] * CT Abdomen Pelvis W Contrast (10/25/2024 [...] Sakina Burns D.O. PS: PS Report ID: [id number] Reading Location: [id number] Procedure Note Sakina Burns DO - 10/25/2024 [...] Sakina Burns D.O. PS: PS Report ID: [id number] Reading Location: [place] [address] Josue Cannon MD IMG CT PROCEDURES Final [...] for uric acid stone formation. Source: [employer] Current Interpretive Data was last revised on [...] O RDERABLES Final Result Performing Organization Address City/[facility] Co de Phone Number [facility] ([place]) [address] [place] [address] * C. difficile testing Stool (10/25/2024 8:07 AM CDT) [facility] Result Negative Negative Toxin Result Negative Negative [facility] C. diff result Negative, free toxin Negative, free toxin [facility] ([place]) C. diff interp Negative for toxigenic Clostridioides (Clostridium) difficile. Analysis was performed using a glutamate dehydrogenase antigen detection assay combined with a C. difficile toxin detection assay. [facility] ([place]) Stool 10/25/2024 8:07 AM CDT 10/25/2024 8:12 AM CDT Josue Cannon MD LAB MICROBIOLOGY - GENERAL O RDERABLES Final Result Performing Organization Address City/[facility]/ZIP Co de Phone Number [facility] ([place]) [address] [facility] [place] [address] * (ABNORMAL) eGFR (10/25/2024 8:07 AM CDT) Pathologist [facility] eGFR 43(L) >=60 mL/min/1. 73 m2 Comment: [...] MD LAB BLOOD ORDERABLES Final R esult [facility] ([place]) [address] [place] [address] * (ABNORMAL) Differential, auto (10/25/2024 8:07 AM [...] R esult [facility] ([place]) [address] [facility] [place], [place] [id number] * (ABNORMAL) CBC with auto differential (10/25/2024 [...] 12.3 11.1 - 14.9 % [facility] ([place]) RDW SD 41.1 35.7 - 48.1 fL [facility] ([place]) NRBC abs 0.00 0.00 - 0.01 K/cumm [facility] ([place]) Blood 10/25/2024 8:07 AM CDT 10/25/2024 8:12 AM CDT Josue Cannon MD LAB BLOOD ORDERABLES Final R esult Performing Organization Address [facility] Co de Phone Number [facility] ([place]) 1 [facility] [place] [address] * Stool culture Stool Rectum (10/25/2024 8:07 AM CDT) Direct Specimen Exam Shiga Toxin Testing: Antigen detection assay for Shiga-toxin NEGATIVE for Shiga Toxin 1 and Shiga Toxin 2. Comment:Testing performed by : [facility], [address] [place]., [address] Report Final Report: No growth of enteric bacterial pathogens [facility] [place]) Comment:Testing performed by : [facility], [address] [place] [address]., [address] Stool (Rectum) 10/25/2024 8: 07 AM CDT 10/25/2024 11:43 AM CDT Narrative [facility] ([place]) - 10/30/2024 4:03 PM CDT Testing performed by [facility] ([phone]). Routine stool cultures include procedures to detect Salmonella, Shigella, Edwardsiella, Aeromonas, Pleisiomonas, Campylobacter, Yersinia, E. coli O157, and Shiga-like toxins. Vibrio is cultured only upon special request. If Vibrio is suspected, please call the laboratory at [phone]. Interpretive data was last updated December 18, 2016. Josue Cannon MD LAB MICROBIOLOGY - GENERAL O RDERABLES Final Result Performing Organization Address [facility]/State/ZIP Co de Phone Number [facility] ([place]) [address] [place] [address] * Lipase (10/25/2024 8:07 AM CDT) Lipase 14 10 - 99 Units/L Blood 10/25/2024 8:07 AM CDT 10/25/2024 8:12 AM CDT Josue Cannon MD LAB BLOOD ORDERABLES Final R esult [facility] ([place]) 1 [facility] [place] [address] * (ABNORMAL) Comprehensive metabolic panel (10/25/2024 8:07 AM CDT) Sodium 135 135 - 145 mmol/L Potassium, pl 3.3 3.3 - 4.9 mmol/L [facility] ([place]) Chloride 98 97 - 110 mmol/L [facility] ([place]) CO2 19(L) 22 - 32 mmol/L [facility] [...] R esult [facility] ([place]) [address] [place] [address] from Last 3 Months Insurance [employer] [place] [address] Advance Directives For more information, please contact: [phone] * Full Code (Latest Code Status on File) Date Activated Date Inactivated Comments 10/25/2024 12:49 PM 10/28/2024 8:15 PM Care Teams Insulator Helper Relationship Specialty Start Date End Date Molly Poe NP [facility] [place] [address] PCP - General Nurse Practitioner 10/25/24
--- OUTSIDE RECORDS SUMMARY | 2024-11-26 08:31 | XMS_ITS | Clinical Summary ---
Author Organization [facility] Address [address] [place] [address] Care Team Providers Care Leaf Conditioner Helper Name Role Phone Molly Poe NP Primary Care Provider [phone] Allergies Active Allergy Reactions Criticality Noted Date [...] Date Type Department Care Team Description 11/03/2024 [facility] Post Discharge Follow up phone call [facility] [address] [place] [address] Kimber Butt RN 11/03/2024 [facility] Post Discharge Follow up phone call [facility] [address] [place] [address] Ofe Chavira 10/25/2024 7:31 AM CDT - 10/28/2024 4:15 PM CDT Hospital Encounter [facility] [address] [place] [address] Josue Cannon MD Nikolic, Jelena, MD Kheirkhahan, Nazanin, MD Fasick, Victoria Rose, Colitis (Primary Dx); Diarrhea of presumed infectious origin; Lower abdominal pain Discharge Disposition: Discharge to home or self care from Last 3 Months Social History Tobacco Use Types Packs/Day Years Used Date Smoking Tobacco: Former Cigarettes Smokeless Tobacco: Never Tobacco Cessation:Counseling Given: Not Answered [facility] Utilities Answer Date Recorded In the past 12 months has [employer] electric, gas, oil, or water company threatened [...] Never 10/27/2024 How often do you attend jainism or baptism serv ices? 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 Gender Identity Not on file Sexual Orientation [...] Fin al Result [facility] (FE) 1 [facility] Department [place] [address] * eGFR (10/28/2024 5:27 AM [...] Final Res ult [facility] ([facility]) 1 [facility] Department [place] [address] * Differential, auto (10/28/2024 5:27 AM CDT) [...] Final Res ult [facility] ([facility]) 1 [facility] Department [place] [address] * (ABNORMAL) CBC with auto differential (10/28/2024 [...] Final Res ult [facility] ([facility]) 1 [facility] Department [place] [address] * (ABNORMAL) Basic metabolic panel (10/28/2024 5:27 [...] BLOOD ORDERABLES Final Res ult [facility] ([place]) [address] [place] [address] [place] [address] * (ABNORMAL) Calcium, ionized, whole blood (10/27/2024 11:06 AM CDT) Ca, ionized, bld 4.21(L) 4.50 - 5.10 mg/dL Blood 10/27/2024 11:0 6 AM CDT 10/27/2024 11:12 AM CDT us Yvette Jacob MD LAB BLOOD ORDERABLES Socorro l Result Performing Organization Address [facility] Co de Phone Number [facility] ([place]) 1 [facility] [place] [address] * eGFR (10/27/2024 11:06 AM CDT) eGFR [...] BLOOD ORDERABLES Final Res ult [facility] ([place]) 1 [facility] Department [place] [address] * Differential, auto (10/27/2024 11:06 AM CDT) Neutrophil abs 5.4 1.5 - 6.5 K/cumm Imm gran abs 0.0 0.0 - 0.1 K/cumm [facility] ([place]) Lymphocyte abs 1.7 0.8 - 3.3 K/cumm [facility] ([place]) Monocyte abs 0.5 0.2 - 0.8 K/cumm [facility] ([place]) Eosinophil abs 0.1 0.0 - 0.5 K/cumm [facility] ([place]) Basophil abs 0.0 0.0 - 0.1 K/cumm [facility] ([place]) Neutrophil pct 69.3 % [facility] ([place]) Comment: Interpretive Data Percent cell count reference ranges are not reported, since discordance with absolute values may lead to misinterpretation of CBC data. Current Interpretive Data was last revised on 2017. Imm gran pct 0.3 % [facility] ([place]) Comment: Interpretive Data Percent cell count reference ranges are not reported, since discordance with absolute values may lead to misinterpretation of CBC data. Current Interpretive Data was last revised on 2017. Lymphocyte pct 22.2 % [facility] ([place]) Comment: Interpretive Data Percent cell count reference ranges are not reported, since discordance with absolute values may lead to misinterpretation of CBC data. Current Interpretive Data was last revised on 2017. Monocyte pct 6.6 % [facility] ([place]) Comment: Interpretive Data Percent cell count reference ranges are not reported, since discordance with absolute values may lead to misinterpretation of CBC data. Current Interpretive Data was last revised on 2017. Eosinophil pct 1.3 % [facility] ([place]) Comment: Interpretive Data Percent cell count reference [...] Final Res ult [facility] ([facility]) 1 [facility] Department [place] [address] * CBC with auto differential (10/27/2024 11:06 [...] Final Res ult [facility] ([place]) 1 [facility] [place] [address] * (ABNORMAL) Basic metabolic panel (10/27/2024 11:06 [...] 2022. Calcium 8.4(L) 8.5 - 10.3 mg/dL [facility] ([facility]) Blood 10/27/2024 11:0 6 AM CDT 10/27/2024 11:12 AM CDT Mari Alvarez MD LAB BLOOD ORDERABLES Final Res ult [facility] ([facility]) 1 [facility] Department [place] [address] * Potassium (10/26/2024 2:01 PM CDT) Potassium, pl 3.7 3.3 - 4.9 mmol/L Blood 10/26/2024 2:01 PM CDT 10/26/2024 2:13 PM CDT Yvette Jacob MD LAB BLOOD ORDERABLES Socorro l Result [facility] ([place]) 1 [facility] [place] [address] * Calcium, ionized, whole blood (10/26/2024 9:37 AM CDT) [facility] Ca, ionized, bld 4.59 4.50 - 5.10 mg/dL Blood 10/26/2024 9:37 AM CDT 10/26/2024 9:40 AM CDT Yvette Jacob MD LAB BLOOD ORDERABLES Socorro l Result [facility] ([place]) 1 [facility] [place] [address] * Magnesium (10/26/2024 8:31 AM CDT) [facility] Magnesium 1.6 1.4 - 2.5 mg/dL Blood 10/26/2024 8:31 AM CDT 10/26/2024 8:43 AM CDT Yvette Jacob MD LAB BLOOD ORDERABLES Socorro l Result [facility] ([place]) 1 [facility] [place] [address] * eGFR (10/26/2024 5:08 AM CDT) [facility] eGFR 63 >=60 mL/min/1. 73 m2 [...] MD LAB BLOOD ORDERABLES Final Res ult [facility] ([place]) 1 [facility] Department [place] [address] * (ABNORMAL) Differential, auto (10/26/2024 5:08 AM [...] BLOOD ORDERABLES Final Res ult [facility] ([place]) 1 [facility] Department [place] [address] * (ABNORMAL) CBC with auto differential (10/26/2024 5:08 AM CDT) WBC 9.0 3.8 - 9.9 K/cumm Hgb 11.4(L) 11.9 - 15.5 g/dL [facility] ([place]) Hct 34.6(L) 35.6 - 45.5 % [facility] ([place]) Plt 266 150 - 400 K/cumm [facility] ([place]) MPV 9.7 9.1 - 12.3 fL [facility] ([facility]) RBC 3.74(L) 3.90 - 5.20 M/cumm [facility] ([place]) MCV 92.5 81.3 - 96.4 fL [facility] ([place]) MCH 30.5 27.1 - 33.3 pg [facility] ([facility]) MCHC 32.9 32.3 - 35.7 g/dL [facility] ([facility]) RDW CV 12.5 11.1 - 14.9 % [facility] ([facility]) RDW SD 42.7 35.7 - 48.1 fL [facility] ([facility]) NRBC abs 0.00 0.00 - 0.01 K/cumm [facility] ([facility]) Blood 10/26/2024 5:08 AM CDT 10/26/2024 6:03 AM CDT us Mari Alvarez MD LAB BLOOD ORDERABLES Final Res ult [facility] ([facility]) 1 [facility] Department [place] [address] * (ABNORMAL) Basic metabolic panel (10/26/2024 5:08 AM CDT) Sodium 136 135 - 145 mmol/L Comment:breanna alejandro Potassium, pl 2.8(C) 3.3 - 4.9 mmol/L [facility] ([facility]) Comment:Critical Result call ed by [email or web address] at 2024-10-26 07:08:16. Result Read Back by breanna bacon [facility] Chloride 102 97 - 110 mmol/L [facility] ([facility]) Comment:breanna bacon mcu CO2 15(L) 22 - 32 mmol/L [facility] ([facility]) Comment:breanna alejandro Anion gap 20(H) 2 - 15 mmol/L [facility] ([facility]) Comment:breanna bacon mcu BUN 18 6 - 25 mg/dL [facility] ([facility]) Comment:breanna bacon mcu Creatinine 0.96 0.60 - 1.10 mg/dL [facility] ([facility]) Comment:[facility]anna [facility] Glucose 61(L) 70 - 199 mg/dL [facility] ([place]) Comment: otonieleliazar jordi [facility] Interpretive Data Fasting glucose >/= 126 mg/dl [...] Calcium 8.0(L) 8.5 - 10.3 mg/dL [facility] ([place]) Comment:otonielwestleysavannah bacon [facility] Blood 10/26/2024 5:08 AM CDT 10/26/2024 6:03 AM CDT us Mari Alvarez MD LAB BLOOD ORDERABLES Final Res ult [facility] ([place]) 1 [facility] [place] [address] * Sepsis Lactate w/ Reflex (10/25/2024 12:00 PM CDT) Sepsis Lactate 1.3 0.7 - 2.0 mmol/L Blood 10/25/2024 12:0 0 PM CDT 10/25/2024 12:03 PM CDT us Josue Cannon MD LAB BLOOD ORDERABLES Final R esult [facility] ([place]) [facility] [place] [address] * Blood culture Blood Blood (10/25/2024 10:42 AM CDT) Report Final Report: No growth Comment:Testing performed by : [facility], [address] [place]., [address] Blood (Blood) 10/25/2024 10: 42 AM CDT [...] characteristics have been verified by the [facility] Microbiology Laboratory. For questions about this culture, contact the Microbiology Laboratory at [phone]. Interpretive data was last revised on 24. Josue Cannon MD LAB MICROBIOLOGY - GENERAL O RDERABLES Final Result [facility] ([place]) 1 [facility] Department [place] [address] * Blood culture Blood Blood (10/25/2024 10:42 AM CDT) Report Final Report: No growth Comment:Testing performed by : [facility], 1 [facility] [place] [address] Blood (Blood) 10/25/2024 10: 42 AM CDT [...] characteristics have been verified by the [facility] Microbiology Laboratory. For questions about this culture, contact the Microbiology Laboratory at [phone]. Interpretive data was last revised on 24. us Josue Cannon MD LAB MICROBIOLOGY - GENERAL O RDERABLES Final Result [facility] ([place]) 1 [facility] Department [place] [address] * CT Abdomen Pelvis W Contrast (10/25/2024 [...] Sakina Burns D.O. PS: PS Report ID: [id number] Reading Location: [place] [address] Procedure Note Sakina Burns, DO - 10/25/2024 [...] Sakina Burns D.O. PS: PS Report ID: [id number] Reading Location: [place] [address] us Josue Cannon MD IM CT PROCEDURES [...] tendency for uric acid stone formation. Source: [facility] Current Interpretive Data was last revised on [...] RDERABLES Final Result [facility] ([place]) 1 [facility] Department [place] [address] * C. difficile testing Stool (10/25/2024 8:07 AM CDT) Pathologist [facility] Result Negative Negative Toxin Result Negative Negative [...] O RDERABLES Final Result Performing Organization Address City/[facility]/ZIP Co de Phone Number [facility] ([place]) 1 [facility] Source Audio [place] [address] * (ABNORMAL) eGFR (10/25/2024 8:07 AM CDT) [...] BLOOD ORDERABLES Final R esult [facility] ([place]) 1 [facility] Department [place] [address] * (ABNORMAL) Differential, auto (10/25/2024 8:07 AM CDT) Neutrophil abs 15.1(H) 1.5 - 6.5 K/cumm Imm gran abs 0.1 0.0 - 0.1 K/cumm [facility] ([place]) Lymphocyte abs 1.3 0.8 - 3.3 K/cumm [...] Final R esult [facility] ([facility]) 1 [facility] [place] [address] * (ABNORMAL) CBC with auto differential (10/25/2024 8:07 AM CDT) WBC 17.5(H) 3.8 - 9.9 K/cumm Hgb 14.0 11.9 - 15.5 g/dL [facility] ([place]) Hct 41.2 35.6 - 45.5 % [facility] ([facility]) Plt 364 150 - 400 K/cumm [facility] ([place]) MPV 9.4 9.1 - 12.3 fL [facility] ([place]) RBC 4.54 3.90 - 5.20 M/cumm [facility] ([place]) MCV 90.7 81.3 - 96.4 fL [facility] ([place]) MCH 30.8 27.1 - 33.3 pg [facility] ([facility]) MCHC 34.0 32.3 - 35.7 g/dL [facility] ([facility]) RDW CV 12.3 11.1 - 14.9 % [facility] ([facility]) RDW SD 41.1 35.7 - 48.1 fL [facility] ([facility]) NRBC abs 0.00 0.00 - 0.01 K/cumm [facility] ([facility]) Blood 10/25/2024 8:07 AM CDT 10/25/2024 8:12 AM CDT Josue Cannon MD LAB BLOOD ORDERABLES Final R esult [facility] ([facility]) 1 [facility] Department [place] [address] * Stool culture Stool Rectum (10/25/2024 8:07 AM CDT) Pathologist [facility] Direct Specimen Exam Shiga Toxin Testing: Antigen detection assay for Shiga-toxin NEGATIVE for Shiga Toxin 1 and Shiga Toxin 2. Comment:Testing performed by : [facility], 1 [facility], [place]., [address] Report Final Report: No growth of enteric bacterial pathogens [facility] ([place]) Comment:Testing performed by : [facility], 1 [facility], [place]., [address] Stool (Rectum) 10/25/2024 8: 07 AM CDT 10/25/2024 11:43 AM CDT Narrative [facility] ([place]) - 10/30/2024 4:03 PM CDT Testing performed by [facility] Microbiology Laboratory ([phone]). Routine stool cultures include procedures to detect Salmonella, Shigella, Edwardsiella, Aeromonas, Pleisiomonas, Campylobacter, Yersinia, E. coli O157, and Shiga-like toxins. Vibrio is cultured only upon special request. If Vibrio is suspected, please call the laboratory at [phone]. Interpretive data was last updated December 18, 2016. Josue Cannon MD LAB MICROBIOLOGY - GENERAL O RDERABLES Final Result Performing Organization Address [facility] Co de Phone Number [facility] ([place]) 1 [facility] [place] [address] * Lipase (10/25/2024 8:07 AM CDT) Lipase 14 10 - 99 Units/L Blood 10/25/2024 8:07 AM CDT 10/25/2024 8:12 AM CDT Josue Cannon MD LAB BLOOD ORDERABLES Final R esult Performing Organization Address [facility] Co de Phone Number [facility] ([place]) 1 [facility] [place] [address] * (ABNORMAL) Comprehensive metabolic panel (10/25/2024 8:07 AM CDT) Sodium 135 135 - 145 mmol/L Potassium, pl 3.3 3.3 - 4.9 mmol/L [facility] ([place]) Chloride 98 97 - 110 mmol/L [facility] ([place]) CO2 19(L) 22 - 32 mmol/L [facility] ([place]) Anion gap 19(H) 2 - 15 [...] Final R esult [facility] ([facility]) 1 [facility] Department [place] [address] from Last 3 Months Insurance [employer] PPO [facility] ADVANTAGE CHOICE PPO Advance Directives For more information, please contact: [phone] * Full Code (Latest Code Status on File) Date Activated Date Inactivated Comments 10/25/2024 12:49 PM 10/28/2024 8:15 PM Care Teams Leaf Conditioner Helper Relationship Specialty Start Date End Date Molly Poe NP [facility] [place] [address] PCP - General Nurse Practitioner 10/25/24
--- OUTSIDE RECORDS SUMMARY | 2024-11-26 08:31 | XMS_ITS | Encounter Summary ---
Author Organization [facility] Address [address] [place] [address] Care Team Providers Care Poly Packer And Heat Sealer Name Role Phone Ting SumnerNP Primary Care Provider [phone] Daphne Ruiz RN Unavailable Molly Poe NP Primary Care Provider [phone] Encounter Details Date Type Department Care Team (Late st Contact Info) Description 02/07/2023 MyChart Message Enc 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 No / Unsure 01/23/2023 3:14 PM CDT documented as of this encounter Plan of Treatment Upcoming Encounters Date Type Department Care Team (Late Contact Info) Description 05/20/2025 10:00 AM CDT Office Visit [facility] [address] [place] [address] Danish Guzman MD [facility] [address] [place] [address] documented as of this encounter Visit Diagnoses Not on filedocumented in this encounter Additional Health Concerns Assessment Noted Time PHQ-9 Depression Total Score: 0 10/19/19 22 9:18 AM COMMERCIAL CORRESPONDENT documented as of this encounter Care Teams Poly Packer And Heat Sealer Relationship Specialty Start Date End Date Ting Sumner APNP [address] [place] [address] PCP - General NURSE PRACTITIONER 02/26/20 10/28/24 Molly Poe NP [address] [place] [address] PCP - General NURSE PRACTITIONER 10/29/24 Daphne Ruiz, RN [address] [place] [address] Bander And Cellophaner Machine Helper (Ambulatory) REGISTERED NURSE 10/28/24 10/28/24 documented as of this encounter
--- OUTSIDE RECORDS SUMMARY | 2024-11-26 08:31 | XMS_ITS | Encounter Summary ---
Author Organization [facility] Address [facility] [place] [address] Care Team Providers Care Mma Fighter Name Role Phone Unavailable Primary Care Provider Unavailabl e Encounter Details Date Type Department Care Team (Late st Contact Info) Description 10/10/2024 Lab Requisition [facility] Lab [address] [place] [address] Fredy Rhodes MD [facility] DERMATOLOGY [address] [place] [phone] Neoplasm of uncertain behavior of skin [...] Comments DERMATOPATHOLOGY Routine 10/10/2024 12:0 0 AM CORRUGATOR Neoplasm of uncertain behavior of skin documented in this encounter Results * DERMATOPATHOLOGY (10/10/2024 12:00 AM CORRUGATOR) Case Report Dermatopathology Report Case: [id number] Authorizing Provider: Fredy Rhodes MD Collected: 10/10/2024 12:00 AM Ordering Location: [facility] - Received: 10/13/2024 04:17 PM DermPath Lab Pathologist: Antonella Ag MD Specimens: A) - Skin, right chin B) - Skin, left upper arm 5:11 PM [facility] DERMATOPATHOLOGY [facility]ORATORY Final Diagnosis Specimen A. SKIN, right chin: BASAL CELL CARCINOMA, NODULAR TYPE (C44.319) Specimen B. 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 Jar 0. 5:11 PM [facility] DERMATOPATHOLOGY [facility]ORATORY Microscopic Description Specimen A. SKIN, right chin: Within the dermis there are aggregates of basaloid cells with a high nuclear to cytoplasmic ratio and peripheral palisading. Specimen B. SKIN, left upper arm: The epidermis shows parakeratosis, full thickness disorderly maturation of keratinocytes, mitoses at different levels, and dyskeratotic cells. There is a column of marked compact hyperkeratosis. 5:11 PM [facility] DERMATOPATHOLOGY [facility]ORATORY Disclaimer An external and internal positive and negative controls are appropriate for the histochemical, immunohistochemical and immunofluorescence stain(s) in this case (if any), except where stated explicitly. The performance characteristics of the stain(s) cited in this report were developed and its performance characteristic determined by the Dermatopathology Laboratory at [facility], directed by Dr. Silvana Kramer. These tests need not be, and therefore are not, approved by the [place] Food and Drug Administration. The tests are used for clinical purposes. Billing Codes Specimen Charges Stain Charges 19861 52817 1 1 03/05/202 5 5:11 PM CORR[facility]ATOR DERMATOPATHOLOGY LABORATORY Embedded Images 5:11 PM CORRUGATOR DERMATOPATHOLOGY LABORATORY Pathology/Cytology TISSUE SPECIMEN FROM SKIN / Unknown 10/10/2024 10/13/2024 4:17 PM CORRUGATOR Miscellaneous samples (specimen) TISSUE SPECIMEN FROM SKIN / Unknown 10/10/2024 10/13/2024 4:17 PM CORRUGATOR Fredy Rhodes MD LAB - PATHOLOGY/CYTOLOGY OLAMIDEE GABBIE Final Result DERMATOPATHOLOGY LABORATORY [facility] - Department of Dermatology [facility] Specialized Medicine [address] [place] [address], [address] Floor [address] [phone] documented in this encounter Visit Diagnoses Diagnosis Neoplasm of uncertain behavior of skin documented in this encounter
--- OUTSIDE RECORDS SUMMARY | 2024-11-26 08:31 | XMS_ITS | Clinical Summary ---
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 05/06/20 24 Active fluticasone-april meterol (ADVAIR DISKUS) 500-50 MCG/ACT inhaler Inhale 1 puff into the lungs 2 (two) times daily. 11/12/19 25 Active montelukast (SINGULAIR) 10 MG tablet Take 1 tablet (10 mg total) by mouth nightly at bedtime. 12/20/19 24 Active mupirocin (BACTROBAN) 2 % ointment Apply topically 2 (two) times daily. 05/01/20 24 Active potassium chloride CR (KLOR-CON M) 20 MEQ tablet Take 1 tablet (20 mEq total) by mouth 2 (two) times daily. 10/29/19 25 Active vancomycin (VANCOCIN) 125 MG capsule take 1 capsule by mouth every 6 hours 11/09/19 25 Active amLODIPine (NORVASC) 5 MG tabletIndicatio ns:Primary hypertension Take 1 tablet (5 mg total) by mouth daily. 30 tablet 5 08/16/19 24 Discontinued Active Problems Problem Noted Date Diagnosed Date Diarrhea of presumed infectious origin Lower abdominal pain 10/26/2024 Colitis 10/25/2024 Polyp of colon 11/18/2020 Ganglion cyst 11/18/2020 Depressive disorder 11/18/2020 Cataract 11/18/2020 Asthma ([facility]) 11/18/2020 Anxiety 11/18/2020 Mixed hyperlipidemia 10/05/2020 COPD (chronic obstructive pu lmonary disease) ([facility]) 02/26/2020 Hypertension 02/26/2020 Chronic neck pain 02/26/2020 Abnormal electrocardiogram 02/18/2019 Osteoporosis 11/12/2017 Cervical disc disorder 11/15/2012 Resolved Problems Problem Noted Date Diagnosed Date Resolved Date Noninfected skin tear of lef t lower extremity, initial encounter 11/22/2020 11/09/2023 Peripheral vascular disease 02/25/2019 10/18/2021 Claudication 01/27/2019 10/18/2021 Nicotine dependence, unspeci fied, uncomplicated 01/27/2019 10/18/2021 Encounters Date Type Department Care Team Description 11/19/2024 9:30 AM CDT Office Visit [facility] [address] [place] [address] Danish Guzman MD Gastrointestinal Symptoms 10/29/2024 Patient Outreach [facility] [address] [phone] Daphne Ruiz, RN Hospital Follow Up 10/28/2024 Patient Outreach [facility] [address] [phone] Daphne Ruiz RN Hospital Follow Up 10/25/2024 Scan [facility] INFO SRVCS Scanned, Doc [facility] from Last 3 Months Immunizations Immunization Administration Dates Next Due Fluzone High Dose - >Age 65 (Prefilled Syringe) 04/24/2018 Influenza (Generic) 06/02/2016,06/10/2015,2013 Influenza Adult (Generic) 10/12/2021(Def erred: Patient Refused),04/24/2018,06/06/2017,06/06/20 17,06/02/2016,06/10/2015,05/28/2014 Pneumococcal (Generic) 06/11/2006 Pneumococcal (Pneumovax 23) 04/24/2018 Pneumococcal (Prevnar 13) 06/12/2019 Tdap (Generic) 11/17/2013 Zoster (Zostavax) 10037 Unt/0.65Ml 11/17/2013 Family History Medical History Relation [...] CDT Gender Identity Female 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 Sexual Orientation Not on file Last Filed Vital Signs Vital Sign Reading Time Taken Comments Blood Pressure 130/78 11/19/2024 9:27 AM CDT Pulse 82 11/19/2024 9:27 AM CDT Temperature 35.9 C (96.6 F) 11/09/2023 7:41 AM CDT Respiratory Rate 16 11/09/2023 7:41 AM CDT Oxygen Saturation 99% 11/09/2023 7:41 AM CDT Inhaled Oxygen Concentration - - Weight 63.5 kg (140 lb) 11/19/2024 9:27 AM CDT Height 160 cm (5' 3 ) 11/19/2024 9:27 AM CDT Body Mass Index 24.8 11/19/2024 9:27 AM CDT Plan of Treatment Upcoming Encounters Date Type Department Care Team (Late st Contact Info) Description 05/20/2025 10:00 AM CDT Office Visit [facility] [address] [place] [phone] Danish Guzman MD [id number] [place] [address] Health Maintenance Due Date Last Done Comments Lung Cancer Screening 2002 RSV Immunization or 60+ Years (1 - Risk 60-74 years 1-dose series) 2012 Zoster Vaccines (2 of 3) 01/12/2014 11/17/2013 Annual Medicare Wellness Visit 2017 DTaP, Tdap and Td Vaccines (2 - Td or Tdap) 11/18/2023 11/17/2013 COVID-19 Vaccine (4 - season) 2024 09/19/2021, 04/06/2021, 03/16/2021 PHQ-2 (Physician [place]) 08/13/2024 11/09/2023 Colorectal Cancer Screening FIT-DNA (3 Years) 10/24/2024 10/24/2021, 10/24/2021 Mammogram Screening 10/23/2025 10/24/2023, 08/29/2022, 06/06/2021, Additional history exists Colorectal Cancer Screening Colonoscopy (10 Years) Discontinued 01/15/2014 Pneumococcal Vaccine: 50+ Years Completed 06/12/2019, 04/24/2018 Dexa Scan (General) [...] Health Maintenance Results * HEPATITIS C AB ([facility] ONLY) (11/09/2023 8:38 AM CDT) HEPATITIS C AB NON-REACTI VE NON-REACT SUDHA 11/09/2023 7:03 PM CDT [facility] Comment: ANTIBODIES TO HCV NOT DETECTED. DOES NOT EXCLUDE THE POSSIBILITY OF EXPOSURE TO HCV. 11/09/2023 8:38 AM CDT [facility] Final Resul t [facility] [address] [place] [address], [id number] * MAMMOGRAM GENERIC (SCAN ORDER) (10/24/2023) Anatomical Region Laterality Modality Other 10/24/2023 us [facility] Scanned SCANNING Final Resu lt * BONE DENSITY GENERIC (01/11/2022) Anatomical Region Laterality Modality Other 01/11/2022 Narrative 01/11/2022 Ordered by an unspecified provider. us Documents Scanned SCANNING Final Result * COLOGUARD (EXACT SCIENCE) (10/24/2021 8:30 AM CDT) COLOGUARD RESULT Negative Negative [facility] (CLIA #:[id number]) Comment: NEGATIVE TEST RESULT. A negative Cologuard [...] screened with both Cologuard and colonoscopy. (Awa Henry et al, N Engl J Med 2014;370(14):5855-5073) The normal value (reference range) for this assay is negative. COLOGUARD RE-SCREENING RECOMMENDATION: Periodic colorectal cancer screening is an important part of preventive healthcare for asymptomatic individuals at average risk for colorectal cancer. Following a negative Cologuard result, the [employer] and U.S. Multi-Society Task Force screening guidelines recommend a Cologuard re-screening interval of 3 years. References: [employer] Guideline for Colorectal Cancer Screening: https://www.cancer.org/cancer/atzum-bafqor-qauhng/meeekvsqd-ibjxplpge-pasmyln/ac s-rec ommendations.html.; James DK, Mark CR, Jennifer VillagranK, Colorectal Cancer Screening: Recommendations for Physicians and Patients from the U.S. Multi-Society Task Force on Colorectal Cancer Screening , Am J Gastroenterology 2017; 112:1944-9053. TEST DESCRIPTION: Composite algorithmic analysis of stool [...] screened with both Cologuard and colonoscopy. (Awa Bryson al, N Engl J Med 2014;370(14):2620-3061.) Cologuard may produce a false negative or false positive result (no colorectal cancer or precancerous polyp present at colonoscopy follow up). A negative Cologuard test result does not guarantee the absence of CRC or advanced adenoma (pre-cancer). The current Cologuard screening interval is every 3 years. ([employer] and U.S. Multi-Society Task Force). Cologuard performance data in a 10,000 patient pivotal study using colonoscopy as the reference method can be accessed at the following location: www.[employer]ark[employer].DealCloud/results. Additional description of the Cologuard test process, warnings and precautions can be found at www.[employer].com. STOOL STOOL SPECIMEN / Unknown 10/24/2021 8:30 AM CDT 10/25/2021 12:18 PM CDT us [facility] Final Result [facility] ([facility]) [address] [place] [address], [facility] (CLIA #:[id number]) [address] [place] [address] * COLONOSCOPY GENERIC (01/15/2014) 01/15/2014 Narrative 01/15/2014 Ordered by an unspecified provider. 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
[2024-11-26 10:21] LABS: Toxigenic C. Diff POSITIVE (NEGATIVE)
== END 2024-11-26 08:18 | disposition home or self-care (01) ==
PROVIDERS: PCP Nurse Practitioner Adult Health; Visit Provider Internal Medicine Gastroenterology
DX: A04.72 Enterocolitis due to Clostridium difficile, not specified as recurrent (principal)
CPT/HCPCS: 87045; 87427; 87449; 87493; 89055

== ENCOUNTER 2024-12-31 13:55 | Outpatient (CLI) | payer OTHER, SELFPAY ==
--- NOTE | ~2024-12-31 | MM_ITS ---
EXAMINATION: MM screening sal BI w [place] HISTORY: Screening TECHNIQUE: Craniocaudal and mediolateral oblique 3-D tomosynthesis images were obtained and synthetic 2-D images were generated. CAD analysis was submitted and interpreted. COMPARISON: Comparison to multiple prior studies sequentially, with oldest reviewed study dated 04/2020. BREAST PARENCHYMAL COMPOSITION: Not dense: There are scattered areas of fibroglandular density. FINDINGS: There is no evidence of suspicious mass, calcification, or architectural distortion to sugg est malignancy in either breast. There has been no suspicious interval change. IMPRESSION: 1. No mammographic evidence of malignancy. 2. Recommend routine screening mammography in one year. BI-RADS Category 1: Negative Reviewed, dictated and finalized at location B.
== END 2024-12-31 13:56 | disposition home or self-care (01) ==
LOC: MICIMG 13:56
PROVIDERS: PCP Nurse Practitioner Adult Health; Visit Provider Nurse Practitioner Adult Health
DX: Z12.31 Encounter for screening mammogram for malignant neoplasm of breast (principal)
CPT/HCPCS: 77063; 77067